=== PATIENT | male | born 1935 | race Caucasian/White ===

== ENCOUNTER 2023-02-24 10:19 | Inpatient (IN) ==
--- NOTE | 2023-02-24 10:25 | Emergency Department Note ---
Impression & Plan Chest pain, Abnormal EKG ED Provider Note NAME: BEL GANT AGE: 87 SEX: M : 1935 ARRIVES VIA: Ambulance INFORMANT: Patient, EMS ED PROVIDER(S): Devang Lima DO CHIEF COMPLAINT: Chest pain HPI: The patient is an 87-year-old male who presented to the emergency department by ambulance for an evaluation of chest pain. The patient was at rest when he had an acute onset of substernal chest pain. He described it as a pressure. The pain was nonradiating. He called 911 and was brought to the emergency department by ambulance. The patient received aspirin and nitroglycerin prior to arrival with significant improvement of his symptoms. The patient does have a history of diabetes. He states has been compliant with his outpatient medications otherwise. He denies having any fever or cough. ROS: See above HPI for pertinent positives & negatives. A total of 10 systems reviewed and were otherwise negative. PAST MEDICAL HISTORY: See Below PAST SURGICAL HISTORY: See Below FAMILY HISTORY: See Below SOCIAL HISTORY: See Below HOME MEDICATIONS: See Below ALLERGIES: See Below VITALS: See Below PHYSICAL EXAMINATION: GENERAL: Patient is awake alert in no acute distress patient is resting comfortably and showing no signs of anxiety EYES: The conjunctivae are clear. The pupils are round and reactive. EARS, NOSE, MOUTH AND THROAT: The nose is without any evidence of any deformity. NECK: The neck is nontender and supple. RESPIRATORY: Normal respiratory effort is noted there is no evidence of wheezing rhonchi or rales CARDIOVASCULAR: Irregular heart sounds were noted to auscultation. There is no definite murmur. GASTROINTESTINAL: The abdomen is soft. Abdomen is nontender. MUSCULOSKELETAL/EXTREMITIES: There is no evidence of gross deformity full range of motion is noted in the hips and shoulders. SKIN: Skin is warm and dry. There was pedal edema noted bilaterally. NEUROLOGIC: Patient is awake alert and oriented x3 MEDICAL DECISION MAKING: The patient is an 87-year-old male who presented to the emergency department for an evaluation of chest pain. The patient arrived via ambulance. The patient received aspirin and nitroglycerin prior to arrival. On evaluation the patient was feeling much better. I discussed the patient's laboratory and radiographic studies with him. I discussed the limitations of the emergency department work- up for chest pain with him. Ultimately given the patient's age and comorbidities I do feel the patient may be a better candidate for inpatient management. I discussed his condition with the on-call [facility] hospitalist. They have agreed to evaluate the patient in the emergency department for further management and disposition. Triage Nursing notes reviewed. Prior medical records reviewed Vital Signs: reviewed and remarkable for no significant abnormalities Differential diagnosis: Cardiac ischemia, aortic dissection, pulmonary embolism, pneumothorax, pneumonia, pericarditis, myocarditis, esophageal rupture, GERD, cholecystitis, pancreatitis, musculoskeletal, as well as other pathologies. ER treatment provided: See below Diagnostics interpreted by me: ECG: EKG was obtained in the emergency department. My interpretation is sinus rhythm at 109 bpm. Frequent PVCs were noted. A left bundle branch block pattern was favored. No previous tracing was available. Through the [employer] system there was an EKG evaluated from November 18, 2019. The QRS prolongation does appear to be increased compared to previous tracing otherwise no significant changes were noted Prehospital EKG was reviewed in the emergency department. My interpretation is sinus rhythm at 117 bpm. Left bundle branch block pattern was still noted with poor R wave progression and frequent PVCs. This compares similar to the tracing obtained in the emergency department Cardiac Monitoring: An order was placed for continuous cardiac monitoring. The monitor shows a rate of 106 bpm with sinus rhythm. Laboratory studies: As stated above and show below. Imaging studies: See below. Radiographic imaging was reviewed by myself Consultation(s): I discussed this case with Joy [facility]. Past Med/Surg History Medical History Congestive heart failure Diabetes type 2, controlled Essential hypertension GERD (gastroesophageal reflux disease) History of colon cancer Insomnia MEGAN (obstructive sleep apnea) Rectal bleeding Transient cerebral ischemic attack Social History Smoking Status: Former smoker Preferred Language: Singaporean Feels Safe at Home: Yes Allergies Allergies Allergy/AdvReac Type Severity Reaction Status Date / Time No Known Allergies Allergy Verified 10/03/22 11:11 Home Meds Home Medications Medication Instructions Recorded Confirmed acetaminophen 500 mg tablet 1,000 mg PO TID LOW BACK PAIN 09/12/22 02/24/23 (Tylenol Extra Strength) amlodipine 10 mg tablet (Norvasc) 10 mg PO QAM 09/12/22 02/24/23 atorvastatin 20 mg tablet 20 mg PO PM 09/12/22 02/24/23 cholecalciferol (vitamin D3) 10 10 mcg PO QAM 09/12/22 02/24/23 mcg (400 unit) capsule empagliflozin 10 mg tablet 10 mg PO BID 09/12/22 02/24/23 (Jardiance) famotidine 20 mg tablet (Pepcid) 20 mg PO BID 09/12/22 02/24/23 metformin 1,000 mg tablet 1,000 mg PO BID 09/12/22 02/24/23 nystatin-triamcinolone 100,000 1 applic topical BID 09/12/22 02/24/23 unit/gram-0.1 % topical ointment pantoprazole 40 mg tablet,delayed 40 mg PO QAM 09/12/22 02/24/23 release (Protonix) trazodone 50 mg tablet 50 mg PO HS 09/12/22 02/24/23 valsartan 160 1 tab PO QAM 09/26/22 02/24/23 mg-hydrochlorothiazide 25 mg tablet docusate sodium 100 mg capsule 100 mg PO DAILY 10/03/22 02/24/23 (Colace) ascorbic acid (vitamin C) 500 mg 500 mg PO DAILY 02/24/23 02/24/23 tablet (Vitamin C) aspirin 25 mg-dipyridamole 200 mg 1 cap PO BID 02/24/23 02/24/23 capsule,ext.release 12 hr multiphase Results & Data (ED) Vital Signs Vital Signs - 24 hr 02/24/23 10:28 02/24/23 10:24 02/24/23 10:24 Temperature 36.8 C Temperature Source Oral Pulse Rate 106 H 103 H Pulse Rate from SpO2 Sensor Respiratory Rate 18 Respiratory Effort / Characteristics Non-Labored Spontaneous Respiratory Depth Normal Respiratory Pattern Regular Blood Pressure 127/69 Blood Pressure Mean 88 Blood Pressure Position Semi-fowlers Pulse Oximetry 94 96 Oxygen Delivery Method Room Air Sepsis Recent Fever Within 48 Hours No Sepsis New/Unexplained Change in Mental Status No Sepsis Action Taken by Nursing No Action Required 02/24/23 10:24 02/24/23 10:24 02/24/23 10:30 Temperature Temperature Source Pulse Rate Pulse Rate from SpO2 Sensor Respiratory Rate Respiratory Effort / Characteristics Respiratory Depth Normal Respiratory Pattern Blood Pressure 127/69 Blood Pressure Mean 103 Blood Pressure Position Pulse Oximetry 96 Oxygen Delivery Method Room Air Sepsis Recent Fever Within 48 Hours Sepsis New/Unexplained Change in Mental Status Sepsis Action Taken by Nursing 02/24/23 10:30 02/24/23 11:00 02/24/23 11:00 Temperature Temperature Source Pulse Rate 104 H 92 H Pulse Rate from SpO2 Sensor 91 H Respiratory Rate 27 H 16 Respiratory Effort / Characteristics Respiratory Depth Respiratory Pattern Blood Pressure 140/69 Blood Pressure Mean 91 Blood Pressure Position Pulse Oximetry 93 Oxygen Delivery Method Sepsis Recent Fever Within 48 Hours Sepsis New/Unexplained Change in Mental Status Sepsis Action Taken by Nursing 02/24/23 11:30 02/24/23 11:30 02/24/23 12:00 Temperature Temperature Source Pulse Rate 99 H Pulse Rate from SpO2 Sensor 98 H Respiratory Rate 17 Respiratory Effort / Characteristics Respiratory Depth Respiratory Pattern Blood Pressure 135/73 135/57 L Blood Pressure Mean 98 84 Blood Pressure Position Pulse Oximetry 96 Oxygen Delivery Method Sepsis Recent Fever Within 48 Hours Sepsis New/Unexplained Change in Mental Status Sepsis Action Taken by Nursing 02/24/23 12:00 Temperature Temperature Source Pulse Rate 93 H Pulse Rate from SpO2 Sensor 91 H Respiratory Rate 18 Respiratory Effort / Characteristics Respiratory Depth Respiratory Pattern Blood Pressure Blood Pressure Mean Blood Pressure Position Pulse Oximetry 94 Oxygen Delivery Method Sepsis Recent Fever Within 48 Hours Sepsis New/Unexplained Change in Mental Status Sepsis Action Taken by Skilled Nursing Medications Current Medication List: was personally reviewed by me Laboratory Data Attestation: I reviewed the patient's lab results. 02/24/23 10:54 02/24/23 10:54 Lab Results 02/24/23 02/24/23 Range/Units 10:54 10:54 WBC 9.85 (4.8-10.8) K/ul RBC 3.97 L (4.70-6.10) M/uL Hgb 12.0 L (14.0-18.0) g/dl Hct 37.1 L (42.0-52.0) % MCV 93.5 (80.0-100.0) fL MCH 30.2 (25.0-34.0) pg MCHC 32.3 (32.0-36.0) g/dL RDW Std Deviation 49.0 H (36.4-46.3) fL RDW Coeff of Reina 14.4 (11.5-14.5) % Plt Count 334 (130-400) K/uL MPV 9.4 (9.4-12.4) fL Immature Gran % (Auto) 0.5 % Neut % (Auto) 78.6 % Lymph % (Auto) 10.2 % [place] % (Auto) 9.6 % Eos % (Auto) 0.6 % Baso % (Auto) 0.5 % Neut # (Auto) 7.74 H (1.40-6.50) K/uL Lymph # (Auto) 1.00 L (1.2-3.4) K/uL [place] # (Auto) 0.95 H (0.11-0.59) K/uL Eos # (Auto) 0.06 (0-0.50) K/uL Baso # (Auto) 0.05 (0-0.2) K/uL Immature Gran # (Auto) 0.05 (0.01-0.20) K/uL Sodium 137 (136-145) mmol/L Potassium 3.7 (3.5-5.1) mmol/L Chloride 101 (98-107) mmol/L Carbon Dioxide 27 (21-32) mmol/L Anion Gap 9 (3-11) BUN 17 (6-23) mg/dl Creatinine 0.93 (0.6-1.4) mg/dl Est Cr Clr Drug Dosing 65.7 ml/min Est GFR ( Amer) 85.9 ml/min Est GFR (Non-Af Amer) 74.1 ml/min BUN/Creatinine Ratio 18.3 (10-20) Glucose 157 H (70-99(Fasting)) mg/dl Calcium 9.3 (8.6-10.3) mg/dl Total Bilirubin 0.4 (0.2-1.0) mg/dl AST 15 (13-39) U/L ALT 11 (7-52) U/L Alkaline Phosphatase 66 (34-104) U/L Troponin I High Sens 11.3 (0-20) pg/ml Total Protein 6.8 (6.0-8.3) gm/dl Albumin 4.1 (3.4-5.0) gm/dl Globulin 2.7 (2.5-4.0) gm/dl Albumin/Globulin Ratio 1.5 (0.9-2) Lipase 24 (11-82) U/L Imaging Data Attestation: I personally reviewed and interpreted this imaging study as follows: My Impression: 1 view chest x-ray was obtained in the emergency department. My interpretation is no free air, final report below. Radiologist's Impression: Chest X-Ray 02/24/23 10:24 XR chest 1V portable HISTORY: Chest pain, nonspecific COMPARISON: None. FINDINGS: There are low lung volumes. No pneumothorax. Blunting of the left lateral costophrenic sulcus. This could be chronic or represent a trace left pleural effusion. The heart is mildly enlarged. Calcifications within the aortic knob. Slightly rotated study. There is mild antral pulmonary vascular congestion without overt edema. IMPRESSION: 1. Cardiomegaly with mild congestive change. 2. Possible trace left pleural effusion. ACT 112: Negative or not required by law. Electronically signed by: Soren Brandt M.D. 02/24/2023 10:56 AM Discharge Plan Visit Data Chief Complaint: Chest Pain Stated Complaint: CHEST TIGHTNESS ED Provider: Devang Lima Discharge Problem: Chest pain, Abnormal EKG Patient Disposition: Being Evaluated by Hospitalist Forms Stand Alone Forms: My [facility] Prescriptions Prescriptions: No Action valsartan-hydrochlorothiazide 160-25 mg tablet 1 tab PO QAM atorvastatin 20 mg tablet 20 mg PO PM cholecalciferol (vitamin D3) 10 mcg (400 unit) capsule 10 mcg PO QAM Jardiance 10 mg tablet 10 mg PO BID amlodipine [Norvasc] 10 mg tablet 10 mg PO QAM metformin 1,000 mg tablet 1,000 mg PO BID nystatin-triamcinolone 100,000-0.1 unit/gram-% ointment 1 applic topical BID famotidine [Pepcid] 20 mg tablet 20 mg PO BID pantoprazole [Protonix] 40 mg tablet,delayed release (DR/EC) 40 mg PO QAM trazodone 50 mg tablet 50 mg PO HS acetaminophen [Tylenol Extra Strength] 500 mg tablet 1,000 mg PO TID docusate sodium [Colace] 100 mg capsule 100 mg PO DAILY aspirin-dipyridamole [Aggrenox] 25-200 mg Capsule, Er Multiphase 12 Hr 1 cap PO BID ascorbic acid (vitamin C) [Vitamin C] 500 mg Tablet 500 mg PO DAILY Referrals Referrals: PCP,NO [Physician] - Chest pain Qualifiers: Chest pain type: unspecified Qualified Code(s): R07.9 - Chest pain, unspecified
--- NOTE | 2023-02-24 10:58 | XRay Report ---
XR chest 1V portable HISTORY: Chest pain, nonspecific COMPARISON: None. FINDINGS: There are low lung volumes. No pneumothorax. Blunting of the left lateral costophrenic sulc us. This could be chronic or represent a trace left pleural effusion. The heart is mildly enlarged. C alcifications within the aortic knob. Slightly rotated study. There is mild antral pulmonary vascular congestion without overt edema. IMPRESSION: 1. Cardiomegaly with mild congestive change. 2. Possible trace left pleural effusion. ACT 112: Negative or not required by law. Electronically signed by: Soren Brandt M.D. 02/24/2023 10:56 AM
[2023-02-24 11:15] LABS: Basophils # (auto) 0.05 K/uL (0-0.2); Basophils % (auto) 0.5 %; Eosinophils # (auto) 0.06 K/uL (0-0.50); Eosinophils % (auto) 0.6 %; Hematocrit (blood only) 37.1 % (42.0-52.0); Immature Granulocytes # (auto) 0.05 K/uL (0.01-0.20); Immature Granulocytes % (auto) 0.5 %; Lymphocytes % (auto) 10.2 %; Mean Corpuscular Hemoglobin 30.2 pg (25.0-34.0); Mean Corpuscular Hgb Conc 32.3 g/dL (32.0-36.0); Mean Corpuscular Volume 93.5 fL (80.0-100.0); Mean Platelet Volume 9.4 fL (9.4-12.4); Monocytes # (auto) 0.95 K/uL (0.11-0.59); Monocytes % (auto) 9.6 %; Neutrophils # (auto) 7.74 K/uL (1.40-6.50); Neutrophils % (auto) 78.6 %; Platelet Count 334 K/uL (130-400); RDW Coefficient of Variation 14.4 % (11.5-14.5); Red Blood Count 3.97 M/uL (4.70-6.10); White Blood Count 9.85 K/ul (4.8-10.8)
[2023-02-24 11:28] LABS: Albumin Globulin Ratio 1.5 (0.9-2); Albumin Level 4.1 gm/dl (3.4-5.0); BUN Creatinine Ratio 18.3 (10-20); Bilirubin,Total 0.4 mg/dl (0.2-1.0); Calcium 9.3 mg/dl (8.6-10.3); Creatinine Clr Calc Pharmacy 65.7 ml/min; Est GFR (African American) 85.9 ml/min; Est GFR (Non-African American) 74.1 ml/min; Globulin 2.7 gm/dl (2.5-4.0); Potassium 3.7 mmol/L (3.5-5.1); Total Protein 6.8 gm/dl (6.0-8.3)
[2023-02-24 11:34] LABS: Troponin I High Sensitivity 11.3 pg/ml (0-20)
--- NOTE | 2023-02-24 13:02 | History & Physical Report ---
Date of Service February 24, 2023 Assessment & Plan (1) Chest pain: Plan: Patient for observation Vitals as protocol Activity as tolerated Patient kept n.p.o. past midnight Heart healthy diet for now Nitroglycerin as needed as needed for chest pain Echo ordered in a.m. Serial troponins (2) Abnormal EKG: Plan: Reviewed EKG, concerns for left bundle branch block. Continue telemetry monitoring (3) Congestive heart failure: Plan: Continue home meds at this time (4) MEGAN (obstructive sleep apnea): Plan: Stable (5) Diabetes type 2, controlled: Plan: Held home meds at this time Put him on sliding scale and Lantus. (6) Essential hypertension: Plan: Continue valsartan and amlodipine Plan Plan would be to monitor tropes, get EKG in a.m. If any abnormality noted will consider cardiology evaluation and a possible stress test. Patient is a DNR History of Present Illness Primary Care Provider: Theresa Ventura at [facility] 87-year-old male with multiple medical problems staying in an assisted living facility came in with episode of chest pain retrosternal. He describes it as severe chest pain with no radiation lasted for about 20 to 30 minutes and subsided on its own. In view of concerns he was moved to [facility] and evaluated in the ER. Patient received aspirin and nitroglycerin prior to arrival with significant improvement of his symptoms. Patient denied any shortness of breath. No fever or cough or nausea noted. At time of evaluation his niece was at bedside. He denies any chest pain at this point of time. His initial labs and EKG were negative for acute NV. Allergies Allergy/AdvReac Type Severity Reaction Status Date / Time No Known Allergies Allergy Verified 10/03/22 11:11 Home Medications Medication Instructions Recorded Confirmed Type acetaminophen 500 mg tablet 1,000 mg PO TID LOW BACK PAIN 09/12/22 02/24/23 History (Tylenol Extra Strength) amlodipine 10 mg tablet (Norvasc) 10 mg PO QAM 09/12/22 02/24/23 History atorvastatin 20 mg tablet 20 mg PO PM 09/12/22 02/24/23 History cholecalciferol (vitamin D3) 10 10 mcg PO QAM 09/12/22 02/24/23 History mcg (400 unit) capsule empagliflozin 10 mg tablet 10 mg PO BID 09/12/22 02/24/23 History (Jardiance) famotidine 20 mg tablet (Pepcid) 20 mg PO BID 09/12/22 02/24/23 History metformin 1,000 mg tablet 1,000 mg PO BID 09/12/22 02/24/23 History nystatin-triamcinolone 100,000 1 applic topical BID 09/12/22 02/24/23 History unit/gram-0.1 % topical ointment pantoprazole 40 mg tablet,delayed 40 mg PO QAM 09/12/22 02/24/23 History release (Protonix) trazodone 50 mg tablet 50 mg PO HS 09/12/22 02/24/23 History valsartan 160 1 tab PO QAM 09/26/22 02/24/23 History mg-hydrochlorothiazide 25 mg tablet docusate sodium 100 mg capsule 100 mg PO DAILY 10/03/22 02/24/23 History (Colace) ascorbic acid (vitamin C) 500 mg 500 mg PO DAILY 02/24/23 02/24/23 History tablet (Vitamin C) aspirin 25 mg-dipyridamole 200 mg 1 cap PO BID 02/24/23 02/24/23 History capsule,ext.release 12 hr multiphase Past Med/Surg History Medical History Congestive heart failure Diabetes type 2, controlled Essential hypertension GERD (gastroesophageal reflux disease) History of colon cancer Insomnia MEGAN (obstructive sleep apnea) Rectal bleeding Transient cerebral ischemic attack Social History Smoking Status: Former smoker Preferred Language: Ecuadorean Feels Safe at Home: Yes Review of Systems Review of Systems: Reviewed all systems as noted in H/P , rest reviewed as negative Physical Exam Physical Exam: HEENT:No JVD , Normocephalic , atraumatic CV: S1/S2+ , no murmurs Resp: Air entry present bilaterally.no crackles, no wheeze . GI: Abdomen soft non tender . Musculoskeletal: examined for joint tenderness. Skin: no rashes Psych: Normal affect Neuro: Patient is awake alert not in distress , No focal neuro deficits noted Ext: patient has compression stockings, noted to have edema Results & Data Results & Data Vital Signs (Past 12 Hours) Vital Signs Temp Pulse Resp BP Pulse Ox O2 Del Method 02/24/23 12:00 93 H 18 94 02/24/23 12:00 135/57 L 02/24/23 11:30 99 H 17 96 02/24/23 11:30 135/73 02/24/23 11:00 92 H 16 93 02/24/23 11:00 140/69 02/24/23 10:30 104 H 27 H 02/24/23 10:30 127/69 02/24/23 10:24 96 Room Air 02/24/23 10:24 96 02/24/23 10:24 36.8 C 103 H 18 127/69 94 Room Air 02/24/23 10:28 106 H Laboratory Results 02/24/23 02/24/23 10:54 10:54 WBC 9.85 RBC 3.97 L Hgb 12.0 L Hct 37.1 L MCV 93.5 MCH 30.2 MCHC 32.3 RDW Std Deviation 49.0 H RDW Coeff of Reina 14.4 Plt Count 334 MPV 9.4 Immature Gran % (Auto) 0.5 Neut % (Auto) 78.6 Lymph % (Auto) 10.2 [place] % (Auto) 9.6 Eos % (Auto) 0.6 Baso % (Auto) 0.5 Neut # (Auto) 7.74 H Lymph # (Auto) 1.00 L [place] # (Auto) 0.95 H Eos # (Auto) 0.06 Baso # (Auto) 0.05 Immature Gran # (Auto) 0.05 Sodium 137 Potassium 3.7 Chloride 101 Carbon Dioxide 27 Anion Gap 9 BUN 17 Creatinine 0.93 Est Cr Clr Drug Dosing 65.7 Est GFR ( Amer) 85.9 Est GFR (Non-Af Amer) 74.1 BUN/Creatinine Ratio 18.3 Glucose 157 H Calcium 9.3 Total Bilirubin 0.4 AST 15 ALT 11 Alkaline Phosphatase 66 Troponin I High Sens 11.3 Total Protein 6.8 Albumin 4.1 Globulin 2.7 Albumin/Globulin Ratio 1.5 Lipase 24 Diagnostic Findings Abnormal Labs 02/24/23 02/24/23 10:54 10:54 RBC 3.97 L Hgb 12.0 L Hct 37.1 L RDW Std Deviation 49.0 H Neut # (Auto) 7.74 H Lymph # (Auto) 1.00 L [place] # (Auto) 0.95 H Glucose 157 H Medications Administered Home Medications Medication Instructions Recorded Confirmed Last Taken acetaminophen 500 mg tablet 1,000 mg PO TID LOW BACK PAIN 09/12/22 02/24/23 Unknown (Tylenol Extra Strength) amlodipine 10 mg tablet (Norvasc) 10 mg PO QAM 09/12/22 02/24/23 Unknown atorvastatin 20 mg tablet 20 mg PO PM 09/12/22 02/24/23 Unknown cholecalciferol (vitamin D3) 10 10 mcg PO QAM 09/12/22 02/24/23 Unknown mcg (400 unit) capsule empagliflozin 10 mg tablet 10 mg PO BID 09/12/22 02/24/23 Unknown (Jardiance) famotidine 20 mg tablet (Pepcid) 20 mg PO BID 09/12/22 02/24/23 Unknown metformin 1,000 mg tablet 1,000 mg PO BID 09/12/22 02/24/23 Unknown nystatin-triamcinolone 100,000 1 applic topical BID 09/12/22 02/24/23 Unknown unit/gram-0.1 % topical ointment pantoprazole 40 mg tablet,delayed 40 mg PO QAM 09/12/22 02/24/23 Unknown release (Protonix) trazodone 50 mg tablet 50 mg PO HS 09/12/22 02/24/23 Unknown valsartan 160 1 tab PO QAM 09/26/22 02/24/23 Unknown mg-hydrochlorothiazide 25 mg tablet docusate sodium 100 mg capsule 100 mg PO DAILY 10/03/22 02/24/23 Unknown (Colace) ascorbic acid (vitamin C) 500 mg 500 mg PO DAILY 02/24/23 02/24/23 Unknown tablet (Vitamin C) aspirin 25 mg-dipyridamole 200 mg 1 cap PO BID 02/24/23 02/24/23 Unknown capsule,ext.release 12 hr multiphase Code Status & VTE Plan Code Status Patient is dnr VTE Prophylaxis Plan VTE Prophylaxis will be ordered: Yes (1) Chest pain Chest pain type: unspecified Qualified Code(s): R07.9 - Chest pain, unspecified
[2023-02-24] MEDS ORDERED: GLUCAGON FOR INJ 1 MG VIAL SQ PRN (13:31)
[2023-02-24] MEDS ORDERED: DEXTROSE 50% 50 ML SYRINGE IV PRN (13:31)
[2023-02-24] MEDS ORDERED: GLUCOSE 10 TAB/TUBE PO PRN (13:31)
[2023-02-24] MEDS ORDERED: ALUMINUM/MAGNESIUM SUSP 30 ML UDC PO PRN (13:31)
[2023-02-24] MEDS ORDERED: GLUCOSE 40% GEL 15 GM TUBE PO PRN (13:31)
[2023-02-24] MEDS ORDERED: CARBOHYDRATES FOR HYPOGLYCEMIA PO PRN (13:31)
[2023-02-24] MEDS ORDERED: POLYETHYLENE (MIRALAX) 17 GM PACK PO PRN (13:31)
[2023-02-24] MEDS ORDERED: ONDANSETRON INJ 2 MG/ML 2 ML VIAL IV PRN (13:31)
--- NOTE | 2023-02-24 14:21 | Electrocardiogram Report ---
Test Reason : Blood Pressure : / mmHG Vent. Rate : 109 BPM Atrial Rate : 108 BPM P-R Int : 168 ms QRS Dur : 096 ms QT Int : 338 ms P-R-T Axes : 069 -48 096 degrees QTc Int : 455 ms Sinus tachycardia with frequent , and consecutive Premature ventricular complexes Left anterior fascicular block Septal infarct , age undetermined Abnormal ECG No previous ECGs available Confirmed by Devang Hernandez ([id number]) on 02/24/2023 2:20:51 PM Referred By: Audrey rucker [facility] Confirmed By:Devang Hernandez
[2023-02-24] MEDS: ACETAMINOPHEN 500 MG TAB PO SCH ×2 (15:12→20:04)
[2023-02-24] MEDS: INSULIN ASPART PER UNIT CHARGE SC SCH ×2 (18:30→21:37)
[2023-02-24] MEDS: FAMOTIDINE 20 MG TAB PO SCH (20:04)
[2023-02-24] MEDS: traZODone HCL 50 MG TAB PO SCH (20:04)
[2023-02-24] MEDS ORDERED: ASPIRIN 325 MG ECTAB PO STA (20:14)
[2023-02-24] MEDS ORDERED: Heparin IV Adult Wt-Based Standard WITH Bolus Protocol IV STA (20:14)
[2023-02-24] MEDS ORDERED: HEPARIN SOD (PORCINE) 1000 UNIT/ML IV ONE (20:30)
[2023-02-24] MEDS ORDERED: ATORVASTATIN 40 MG TAB PO SCH (21:00)
[2023-02-24] MEDS ORDERED: DIPYRIDAMOLE/ASPIRIN CAP PO SCH (21:00)
[2023-02-24] MEDS ORDERED: ATORVASTATIN 20 MG TAB PO SCH (21:00)
[2023-02-24 21:20] LABS: Partial Thromboplastin Time 28.5 Seconds (21.0-31.0); Prothrombin Time 10.5 Seconds (9.0-12.0)
[2023-02-24] MEDS: HEPARIN SODIUM/DEXTROSE 25,000 UNITS/500 ML BAG IV SCH (21:29)
[2023-02-24] MEDS: LANTUS PER UNIT CHARGE SQ SCH (21:56)
[2023-02-24] MEDS: METOPROLOL TARTRATE 25 MG TAB PO SCH (22:18)
[2023-02-25 04:42] LABS: BUN Creatinine Ratio 18.4 (10-20); Calcium 9.6 mg/dl (8.6-10.3); Chol HDL Ratio 2.4 (0-5); Creatinine Clr Calc Pharmacy 70.1 ml/min; Est GFR (African American) 90.6 ml/min; Est GFR (Non-African American) 78.1 ml/min; Magnesium 1.9 mg/dl (1.7-2.4); Potassium 3.5 mmol/L (3.5-5.1)
[2023-02-25 04:43] LABS: Hematocrit (blood only) 37.9 % (42.0-52.0); Hemoglobin 12.7 g/dl (14.0-18.0); Mean Corpuscular Hemoglobin 30.4 pg (25.0-34.0); Mean Corpuscular Hgb Conc 33.5 g/dL (32.0-36.0); Mean Corpuscular Volume 90.7 fL (80.0-100.0); Mean Platelet Volume 9.6 fL (9.4-12.4); Platelet Count 350 K/uL (130-400); RDW Coefficient of Variation 14.5 % (11.5-14.5); RDW Standard Deviation 48.1 fL (36.4-46.3); Red Blood Count 4.18 M/uL (4.70-6.10); White Blood Count 10.12 K/ul (4.8-10.8)
[2023-02-25 05:15] LABS: Partial Thromboplastin Ratio 2.8
[2023-02-25 05:32] LABS: Partial Thromboplastin Time 79.4 Seconds (21.0-31.0)
[2023-02-25 07:12] LABS: Estimated Average Glucose 137 mg/dl; Hemoglobin A1C 6.4 % (4.5-5.6)
--- NOTE | 2023-02-25 07:49 | Cardiology Consultation ---
Date of Consultation February 25, 2023 Assessment & Plan (1) Chest pain: (2) NSTEMI (non-ST elevated myocardial infarction): (3) Hypertension: (4) Ventricular ectopy: Plan See attending cardiologists plan for further recommendations and plan of care. Supervising Physician Co-Signing Physician Notes Attending Staff: Pt seen and evaluated with [facility] Staff. Concur with observations and plans 87 yo man presenting with chest pain Lives in assisted living Chest pain Duration - 20 min Resolved with ASA + SL NTG en route to ED EKG - sinus tach + PVCs Troponin - negative initially - trending upward to 86 (peak) Started on IV Heparin Dx: NSETMI ECHOcardiogram: 02/24/2023 LV function normal - 60-65% No WMA No . No major valvular disease Hx: * HTN * Hyperlipidemia * DM * Prior CVA/TIA * Ventricular ectopy (PVCs/ NSVT) * No known CAD * Negative stress in 2020 in response to syncope Exam: obese JVP @ base of neck S1S2 2/6 Systolic murmur - No severe appreciated CTA B No C/c/E Warm and perfusing Plan: * Opting for conservative management at present * One episodes of Angina * SBP 147 mmHg * Continue Valsartn 160 mg po per day * Continue HCTZ 25 mg po per day (patient does not appear to be volume overloaded) * Start Imdur 30 mg po per day for angina control * STOP Lopressor * Start Toprol 12.5 mg po per day * K+ goal 4.5-5 * Replete with Kdur 60 meq po x 1 * Mag goal >2 * 4 gm MagSo4 * Check TSH * Continue ASA 81 mg po per day * PT/OT * Ambulatory sat * LDL 48 * Increase Lipitor 40 mg po per day * If patient has recurrence of sx (with ambulation) may consider stress testing Braydon Wong History of Present Illness Reason for Consultation: Chest pain Requesting Physician: Dr. Black Attending Physician: Dr. Wong History of Present Illness Patient is an 87 year old male who presents to [facility] with complaints of chest pain. History includes: 1. Hypertension 2. Dyslipidemia 3. DM type II 4. Prior TIA 5. Frequent ventricular ectopy Per outpatient records, evaluated by [facility] cardiology in 2020 after a syncopal event. Stress testing was negative per documentation, preserved LVEF on echo, outpatient monitor demonstrated frequent PVC's and several runs of non sustained VT. Patient was to have loop monitor but declined. Patient admitted after episode of chest pain lasting 20-30 min. Resolved with ASA and nitro on route to ER. EKG on arrival demonstrated NSR with frequent PVC's. No acute changes. initial troponin negative at 11, increasing to 20 - 86 - and then 82. Started on IV heparin overnight with uptitration of cardiac e nzymes. Also started on low dose metoprolol for PVC's. Echo revealed normal LVEF without wall motion abnormalities. Patient feeling well this morning. Denies recurrent chest pain or SOB. No events overnight. BP has been borderline elevated. No orthopnea, PND or edema. Typically fairly active walking at halfway with walker. No recent exertional chest pain. This episode "occurred out of the blue" while sitting after eating breakfast Allergies Allergy/AdvReac Type Severity Reaction Status Date / Time No Known Allergies Allergy Verified 10/03/22 11:11 Home Medications Medication Instructions Recorded Confirmed Type acetaminophen 500 mg tablet 1,000 mg PO TID LOW BACK PAIN 09/12/22 02/24/23 History (Tylenol Extra Strength) amlodipine 10 mg tablet (Norvasc) 10 mg PO QAM 09/12/22 02/24/23 History atorvastatin 20 mg tablet 20 mg PO PM 09/12/22 02/24/23 History cholecalciferol (vitamin D3) 10 10 mcg PO QAM 09/12/22 02/24/23 History mcg (400 unit) capsule empagliflozin 10 mg tablet 10 mg PO BID 09/12/22 02/24/23 History (Jardiance) famotidine 20 mg tablet (Pepcid) 20 mg PO BID 09/12/22 02/24/23 History metformin 1,000 mg tablet 1,000 mg PO BID 09/12/22 02/24/23 History nystatin-triamcinolone 100,000 1 applic topical BID 09/12/22 02/24/23 History unit/gram-0.1 % topical ointment pantoprazole 40 mg tablet,delayed 40 mg PO QAM 09/12/22 02/24/23 History release (Protonix) trazodone 50 mg tablet 50 mg PO HS 09/12/22 02/24/23 History valsartan 160 1 tab PO QAM 09/26/22 02/24/23 History mg-hydrochlorothiazide 25 mg tablet docusate sodium 100 mg capsule 100 mg PO DAILY 10/03/22 02/24/23 History (Colace) ascorbic acid (vitamin C) 500 mg 500 mg PO DAILY 02/24/23 02/24/23 History tablet (Vitamin C) aspirin 25 mg-dipyridamole 200 mg 1 cap PO BID 02/24/23 02/24/23 History capsule,ext.release 12 hr multiphase Patient History Medical History Congestive heart failure Diabetes type 2, controlled Essential hypertension GERD (gastroesophageal reflux disease) History of colon cancer Insomnia MEGAN (obstructive sleep apnea) Rectal bleeding Transient cerebral ischemic attack Social History Smoking Status: Former smoker Hx Alcohol Use: Yes Alcohol type: wine Hx Substance Use: No Preferred Language: Vietnamese Communication Ability: Effective Vehicle Washer Required: No Beliefs That Will Affect Care: None Current Living Situation: Jail Feels Safe at Home: Yes Assistive Devices: Walker Review of Systems Review of Systems: All systems reviewed & are unremarkable except as noted in HPI & below Physical Exam Constitutional: WD/WN, vitals as above + obese; no acute distress Neck: trachea midline, no thyromegaly Respiratory: no labored breathing Auscultation: + rales (faint bibasilar rales) Cardiovascular: Rate/Rhythm: regular rate and regular rhythm Heart Sounds: normal S1, normal S2 and + murmur (I/ systolic murmur LSB) Vessels: no JVD Extremities: no edema Gastrointestinal (Abdomen): normal bowel sounds, soft, nontender, no hepatosplenomegaly Skin: no rashes, warm and dry Neurologic: PERRL, EOMI, accommodation nl, no face palsy, no dysarthria Results & Data Vital Signs (Past 12 Hours) Vital Signs Temp Pulse Pulse Resp BP Pulse Ox O2 Del Method 02/25/23 03:55 36.4 C L 67 17 169/80 H 98 Room Air 02/25/23 02:35 69 16 154/74 H 93 Room Air 02/24/23 22:21 76 19 158/71 H 96 Room Air 02/24/23 20:30 85 19 150/75 H 94 Room Air 02/24/23 20:07 74 Laboratory Results Cardiac Enzymes 02/24/23 02/24/23 02/24/23 Range/Units 10:54 12:49 19:14 AST 15 (13-39) U/L Troponin I High Sens 11.3 20.1 H 86.8 H* D (0-20) pg/ml 02/25/23 Range/Units 00:23 AST (13-39) U/L Troponin I High Sens 82.5 H* (0-20) pg/ml Coagulation 02/24/23 02/25/23 Range/Units 20:39 03:52 PT 10.5 (9.0-12.0) Seconds APTT 28.5 79.4 H* (21.0-31.0) Seconds Lipids 02/25/23 Range/Units 03:52 Triglycerides 95 (0-150) mg/dl Cholesterol 116 (0-200) mg/dl HDL Cholesterol 49 mg/dl Cholesterol/HDL Ratio 2.4 (0-5) CBC 02/24/23 02/25/23 Range/Units 10:54 03:52 WBC 9.85 10.12 (4.8-10.8) K/ul RBC 3.97 L 4.18 L (4.70-6.10) M/uL Hgb 12.0 L 12.7 L (14.0-18.0) g/dl Hct 37.1 L 37.9 L (42.0-52.0) % Plt Count 334 350 (130-400) K/uL Neut # (Auto) 7.74 H (1.40-6.50) K/uL Lymph # (Auto) 1.00 L (1.2-3.4) K/uL [place] # (Auto) 0.95 H (0.11-0.59) K/uL Eos # (Auto) 0.06 (0-0.50) K/uL Baso # (Auto) 0.05 (0-0.2) K/uL Comprehensive Metabolic Panel 02/24/23 02/25/23 Range/Units 10:54 03:52 Sodium 137 138 (136-145) mmol/L Potassium 3.7 3.5 (3.5-5.1) mmol/L Chloride 101 101 (98-107) mmol/L Carbon Dioxide 27 27 (21-32) mmol/L BUN 17 16 (6-23) mg/dl Creatinine 0.93 0.87 (0.6-1.4) mg/dl Glucose 157 H 138 H (70-99(Fasting)) mg/dl Calcium 9.3 9.6 (8.6-10.3) mg/dl AST 15 (13-39) U/L ALT 11 (7-52) U/L Alkaline Phosphatase 66 (34-104) U/L Total Protein 6.8 (6.0-8.3) gm/dl Albumin 4.1 (3.4-5.0) gm/dl Intake and Output 02/24/23 02/25/23 02/25/23 22:59 06:59 14:59 Intake Total 284.9 / 284.9 40.05 / 40.05 Output Total 1100 / 1100 Balance -815.1 / -815.1 40.05 / 40.05 Intake: IV 234.9 / 234.9 40.05 / 40.05 Heparin Sodium/Dextrose 25,000 234.9 / 234.9 40.05 / 40.05 units In 500 ml @ 1,350 UNITS/ HR 27 mls/hr IV .[id number] [facility] Rx #:[id number] Oral 50 / 50 Output: Urine 1100 / 1100 Other: Weight 104 kg 95 kg Weight Measurement Method Built in [facility] Diagnostic Findings Telemetry reviewed: Sinus bradycardia and normal sinus rhythm with occ PVC. HR ranging 50-70 bpm EKG reviewed from 02/24/23: Sinus tachycardia with frequent , and consecutive Premature ventricular complexes Left anterior fascicular block Septal infarct , age undetermined Abnormal ECG No previous ECGs available Echo completed 02/24/2023: Mild concentric LVH. LV wall motion is normal. LV systolic function is normal at 60 to 65%. RV is mildly dilated. RV systolic function is normal. No findings to suggest pulmonary hypertension. Grade 1 diastolic dysfunction. Aortic valve sclerosis mild without significant aortic valve stenosis No prior studies for comparison. Chest X-Ray 02/24/23 10:24 XR chest 1V portable HISTORY: Chest pain, nonspecific COMPARISON: None. FINDINGS: There are low lung volumes. No pneumothorax. Blunting of the left lateral costophrenic sulcus. This could be chronic or represent a trace left pleural effusion. The heart is mildly enlarged. Calcifications within the aortic knob. Slightly rotated study. There is mild antral pulmonary vascular congestion without overt edema. IMPRESSION: 1. Cardiomegaly with mild congestive change. 2. Possible trace left pleural effusion. ACT 112: Negative or not required by law. Electronically signed by: Soren Brandt M.D. 02/24/2023 10:56 AM Medications Administered Current Inpatient Medications Acetaminophen (Acetaminophen 500 Mg Tab) 1,000 mg PO TID [facility] Stop: 03/26/23 13:59 Last Admin: 02/24/23 20:04 Dose: 1,000 mg Al Hydrox/Mg Hydrox/Simethicone (Aluminum/Magnesium Susp 30 Ml Udc) 15 ml PO Q4H PRN PRN Reason: Dyspepsia Stop: 03/26/23 13:30 Ascorbic Acid (Ascorbic Acid 500 Mg Tab) 500 mg PO DAILY [facility] Stop: 03/27/23 08:59 Aspirin (Aspirin 81 Mg Ectab) 81 mg PO QAM [facility] Stop: 03/27/23 08:59 Atorvastatin Calcium (Atorvastatin 40 Mg Tab) 80 mg PO PM [facility] Stop: 03/26/23 20:59 Last Admin: 02/24/23 21:08 Dose: 80 mg Dextrose (Dextrose 50% 50 Ml Syringe) 25 - 50 ml IV UD PRN; Protocol PRN Reason: Hypoglycemia Protocol Stop: 03/26/23 13:30 Docusate Sodium (Docusate Sodium 100 Mg Cap) 100 mg PO DAILY [facility] Stop: 03/27/23 08:59 Famotidine (Famotidine 20 Mg Tab) 20 mg PO BID [facility] Stop: 03/26/23 20:59 Last Admin: 02/24/23 20:04 Dose: 20 mg Glucagon (Glucagon For Inj 1 Mg Vial) 1 mg SQ UD PRN; Protocol PRN Reason: Hypoglycemia Protocol Stop: 03/26/23 13:30 Glucose (Glucose 10 Tab/Tube) 4 - 8 tab PO UD PRN; Protocol PRN Reason: Hypoglycemia Treatment Stop: 03/26/23 13:30 Glucose (Glucose 40% Gel 15 Gm Tube) 15 - 30 gm PO UD PRN; Protocol PRN Reason: Hypoglycemia Protocol Stop: 03/26/23 13:30 Hydrochlorothiazide (Hydrochlorothiazide 25 Mg Tab) 12.5 mg PO QAM [facility] Stop: 03/27/23 08:59 Heparin Sodium/Dextrose (Heparin Sodium/Dextrose) 25,000 units in 500 mls @ 27 mls/hr IV .[id number] [facility]; Protocol Stop: 03/26/23 20:29 Last Titration: 02/25/23 07:04 Dose: 1,350 units/hr, 27 mls/hr Insulin Aspart (Insulin Aspart Per Unit Charge) 0 units SC ACHS [facility] Stop: 03/26/23 16:29 Last Admin: 02/24/23 21:37 Dose: Not Given Insulin Glargine (Lantus Per Unit Charge) 0 - 10 units SQ BID [facility] Stop: 03/26/23 20:59 Last Admin: 02/24/23 21:56 Dose: Not Given Metoprolol Tartrate (Metoprolol Tartrate 25 Mg Tab) 12.5 mg PO BID [facility] Stop: 03/26/23 20:59 Last Admin: 02/24/23 22:18 Dose: 12.5 mg Miscellaneous (Carbohydrates For Hypoglycemia ) 15 - 30 gm PO UD PRN PRN Reason: Hypoglycemia Protocol Stop: 03/26/23 13:30 Ondansetron HCl (Ondansetron Inj 2 Mg/Ml 2 Ml Vial) 4 mg IV Q6H PRN PRN Reason: Nausea Stop: 03/26/23 13:30 Pantoprazole Sodium (Pantoprazole 40 Mg Tab) 40 mg PO QAM [facility] Stop: 03/27/23 08:59 Pneumococcal Polyvalent Vaccine (Pneumococcal Polysaccharide Vaccine 25mcg/0.5ml Vial/Syr) 25 mcg IM .ONCE ONE Stop: 02/25/23 09:01 Polyethylene Glycol (Polyethylene (Miralax) 17 Gm Pack) 17 gm PO DAILY PRN PRN Reason: Constipation Stop: 03/26/23 13:30 Trazodone HCl (Trazodone Hcl 50 Mg Tab) 50 mg PO HS [facility] Stop: 03/26/23 20:59 Last Admin: 02/24/23 20:04 Dose: 50 mg Valsartan (Valsartan 80 Mg Tab) 160 mg PO QAM [facility] Stop: 03/27/23 08:59 Vitamin D (Cholecalciferol 400 Units 10 Mcg Tab) 400 units PO QAM [facility] Stop: 03/27/23 08:59 (1) Chest pain Chest pain type: unspecified Qualified Code(s): R07.9 - Chest pain, unspecified
[2023-02-25] MEDS ORDERED: PNEUMOCOCCAL Polysaccharide Vaccine 25mcg/0.5mL vial/Syr IM ONE (09:00)
[2023-02-25] MEDS ORDERED: ENOXAPARIN INJ 40 MG/0.4 ML SYR SQ SCH (09:00)
[2023-02-25] MEDS ORDERED: amLODIPine BESYLATE 5 MG TAB PO SCH (09:00)
[2023-02-25] MEDS: ASPIRIN 81 MG ECTAB PO SCH (09:13)
[2023-02-25] MEDS: DOCUSATE SODIUM 100 MG CAP PO SCH (09:13)
[2023-02-25] MEDS: CHOLECALCIFEROL 400 UNITS 10 MCG TAB PO SCH (09:14)
[2023-02-25] MEDS: METOPROLOL TARTRATE 25 MG TAB PO SCH ×2 (09:14→20:27)
[2023-02-25] MEDS: FAMOTIDINE 20 MG TAB PO SCH ×2 (09:14→20:28)
[2023-02-25] MEDS: VALSARTAN 80 MG TAB PO SCH (09:14)
[2023-02-25] MEDS: hydroCHLOROthiazide 25 MG TAB PO SCH (09:14)
[2023-02-25] MEDS: ASCORBIC ACID 500 MG TAB PO SCH (09:14)
[2023-02-25] MEDS: ACETAMINOPHEN 500 MG TAB PO SCH ×3 (09:15→20:26)
[2023-02-25] MEDS: INSULIN ASPART PER UNIT CHARGE SC SCH ×4 (09:55→20:35)
[2023-02-25] MEDS: LANTUS PER UNIT CHARGE SQ SCH ×2 (09:59→20:35)
[2023-02-25] MEDS: PANTOprazole 40 MG TAB PO SCH (10:55)
[2023-02-25 12:29] LABS: Partial Thromboplastin Ratio 2.2
[2023-02-25 12:54] LABS: Partial Thromboplastin Time 61.8 Seconds (21.0-31.0)
[2023-02-25] MEDS ORDERED: POTASSIUM CHLORIDE CRTAB 20 MEQ TABCR PO ONE (14:08)
[2023-02-25] MEDS: HEPARIN SODIUM/DEXTROSE 25,000 UNITS/500 ML BAG IV SCH (14:55)
[2023-02-25] MEDS: MAGNESIUM SULFATE / D5W 1 GM/100 ML BAG IV SCH ×4 (14:55→19:58)
[2023-02-25] MEDS: ISOSORBIDE MONO EXTENDED REL 30 MG TABCR PO SCH (15:08)
--- NOTE | 2023-02-25 16:07 | Electrocardiogram Report ---
Test Reason : Blood Pressure : / mmHG Vent. Rate : 061 BPM Atrial Rate : 061 BPM P-R Int : 206 ms QRS Dur : 102 ms QT Int : 414 ms P-R-T Axes : 059 -31 012 degrees QTc Int : 416 ms Normal sinus rhythm Left axis deviation Septal infarct (cited on or before 24-FEB-2023) Abnormal ECG When compared with ECG of 24-FEB-2023 10:27, Premature ventricular complexes are no longer Present Vent. rate has decreased BY 48 BPM Nonspecific T wave abnormality now evident in Inferior leads Confirmed by Devang Hernandez ([id number]) on 02/25/2023 4:07:03 PM Referred By: Audrey rucker [facility] Confirmed By:Devang Hernandez
[2023-02-25] MEDS: ATORVASTATIN 40 MG TAB PO SCH (20:26)
[2023-02-25] MEDS: traZODone HCL 50 MG TAB PO SCH (20:27)
--- NOTE | 2023-02-26 07:51 | Cardiology Progress Note ---
Date of Service February 26, 2023 Assessment & Plan Admission and Anticipated Discharge Date Admission Date: February 25, 2023 Supervising Physician Co-Signing Physician Notes Attending Staff: Pt seen and evaluated with [facility] Staff. Concur with observations and plans 87 yo man presenting with chest pain Lives in assisted living Chest pain Duration - 20 min Resolved with ASA + SL NTG en route to ED EKG - sinus tach + PVCs Troponin - negative initially - trending upward to 86 (peak) Started on IV Heparin Dx: NSETMI ECHOcardiogram: 02/24/2023 LV function normal - 60-65% No WMA No . No major valvular disease Hx: * HTN * Hyperlipidemia * DM * Prior CVA/TIA * Ventricular ectopy (PVCs/ NSVT) * No known CAD * Negative stress in 2020 in response to syncope Plan: * Opting for conservative management at present * No Angina overnight * SBP 129 mmHg * Continue Valsartan 160 mg po per day * Continue HCTZ 25 mg po per day (patient does not appear to be volume overloaded) * Increase Imdur to 60 mg po per day for angina control * If SBP is below 120 mmHG on higher Imdur dose, may consider stopping HCTZ * Lopressor (OFF) * Continue Toprol 12.5 mg po per day - HR 56 BPM * K+ goal 4.5-5 * K+ value is PENDING * Mag goal >2 * TSH- PENDING * Continue ASA 81 mg po per day * PT/OT * Ambulatory sat * LDL 48 * Continue Lipitor 40 mg po per day * If patient has recurrence of sx of angina with ambulation - may consider stress testing * Pt to follow up with [facility] * Please call back with any additional questions Braydon Wong Subjective Events overnight: None reported No significant telemetry events Subjective: No angina reported Review of Systems Review of Systems: All systems reviewed & are unremarkable except as noted in HPI & below Physical Exam Physical Exam: Exam: obese JVP @ base of neck S1S2 2/6 Systolic murmur - No severe appreciated CTA B No C/c/E Warm and perfusing Results & Data Vital Signs (Past 12 Hours) Vital Signs Temp Pulse Pulse Resp BP Pulse Ox O2 Del Method 02/26/23 07:39 36.6 C 56 L 18 129/66 94 Room Air 02/26/23 07:00 64 02/25/23 21:59 63 02/26/23 02:45 36.6 C 70 18 153/80 H 93 Room Air 02/25/23 20:30 Room Air 02/25/23 23:08 36.9 C 58 L 16 136/80 93 Room Air Laboratory Results Coagulation 02/25/23 02/26/23 Range/Units 11:24 07:17 APTT 61.8 H* 80.3 H* (21.0-31.0) Seconds Intake and Output 02/25/23 02/26/23 02/26/23 22:59 06:59 14:59 Intake Total 1185.833 / 1869.833 432 / 1869.833 43.2 / 43.2 Output Total 115 / 440 325 / 440 Balance 1070.833 / 1429.833 107 / 1429.833 43.2 / 43.2 Intake: IV 350.833 / 1034.833 432 / 1034.833 43.2 / 43.2 Heparin Sodium/Dextrose 25,000 432 / 684.00 43.2 / 43.2 units In 500 ml @ 1,350 UNITS/ HR 27 mls/hr IV .[id number] [facility] Rx #:[id number] Magnesium Sulfate / D5w 1 gm In 350.833 / 350.833 100 ml @ 50 mls/hr IV Q2H [facility] Rx#:[id number] Oral 835 / 835 Output: Urine 115 / 440 325 / 440 Other: # Unmeasured Voids 3 # Urine Diapers 1 Weight 95.1 kg Weight Measurement Method [facility] Medications Administered Current Inpatient Medications Acetaminophen (Acetaminophen 500 Mg Tab) 1,000 mg PO TID [facility] Stop: 03/26/23 13:59 Last Admin: 02/26/23 08:24 Dose: 1,000 mg Al Hydrox/Mg Hydrox/Simethicone (Aluminum/Magnesium Susp 30 Ml Udc) 15 ml PO Q4H PRN PRN Reason: Dyspepsia Stop: 03/26/23 13:30 Ascorbic Acid (Ascorbic Acid 500 Mg Tab) 500 mg PO DAILY [facility] Stop: 03/27/23 08:59 Last Admin: 02/26/23 08:24 Dose: 500 mg Aspirin (Aspirin 81 Mg Ectab) 81 mg PO QAM [facility] Stop: 03/27/23 08:59 Last Admin: 02/26/23 08:24 Dose: 81 mg Atorvastatin Calcium (Atorvastatin 40 Mg Tab) 40 mg PO PM [facility] Stop: 03/27/23 20:59 Last Admin: 02/25/23 20:26 Dose: 40 mg Dextrose (Dextrose 50% 50 Ml Syringe) 25 - 50 ml IV UD PRN; Protocol PRN Reason: Hypoglycemia Protocol Stop: 03/26/23 13:30 Docusate Sodium (Docusate Sodium 100 Mg Cap) 100 mg PO DAILY [facility] Stop: 03/27/23 08:59 Last Admin: 02/26/23 08:24 Dose: 100 mg Famotidine (Famotidine 20 Mg Tab) 20 mg PO BID [facility] Stop: 03/26/23 20:59 Last Admin: 02/26/23 08:25 Dose: 20 mg Glucagon (Glucagon For Inj 1 Mg Vial) 1 mg SQ UD PRN; Protocol PRN Reason: Hypoglycemia Protocol Stop: 03/26/23 13:30 Glucose (Glucose 10 Tab/Tube) 4 - 8 tab PO UD PRN; Protocol PRN Reason: Hypoglycemia Treatment Stop: 03/26/23 13:30 Glucose (Glucose 40% Gel 15 Gm Tube) 15 - 30 gm PO UD PRN; Protocol PRN Reason: Hypoglycemia Protocol Stop: 03/26/23 13:30 Hydrochlorothiazide (Hydrochlorothiazide 25 Mg Tab) 12.5 mg PO QAM [facility] Stop: 03/27/23 08:59 Last Admin: 02/26/23 08:23 Dose: 12.5 mg Heparin Sodium/Dextrose (Heparin Sodium/Dextrose) 25,000 units in 500 mls @ 27 mls/hr IV .[id number] [facility]; Protocol Stop: 03/26/23 20:29 Last Admin: 02/26/23 08:31 Dose: 1,350 units/hr, 27 mls/hr Insulin Aspart (Insulin Aspart Per Unit Charge) 0 units SC ACHS [facility] Stop: 03/26/23 16:29 Last Admin: 02/26/23 10:02 Dose: 3 units Insulin Glargine (Lantus Per Unit Charge) 0 - 10 units SQ BID [facility] Stop: 03/26/23 20:59 Last Admin: 02/26/23 10:02 Dose: 5 units Isosorbide Mononitrate (Isosorbide [place] Extended Rel 30 Mg Tabcr) 30 mg PO QAM [facility] Stop: 03/27/23 14:14 Last Admin: 02/26/23 08:24 Dose: 30 mg Metoprolol Succinate (Metoprolol Succ 25mg Ext Rel Tab) 12.5 mg PO QAM [facility] Stop: 03/28/23 08:59 Last Admin: 02/26/23 08:25 Dose: 12.5 mg Miscellaneous (Carbohydrates For Hypoglycemia ) 15 - 30 gm PO UD PRN PRN Reason: Hypoglycemia Protocol Stop: 03/26/23 13:30 Ondansetron HCl (Ondansetron Inj 2 Mg/Ml 2 Ml Vial) 4 mg IV Q6H PRN PRN Reason: Nausea Stop: 03/26/23 13:30 Pantoprazole Sodium ([facility] 40 Mg Tab) [facility]: 03/27/23 08:59 Last Admin: 02/26/23 08:24 Dose: 40 mg Polyethylene Glycol (Polyethylene (Miralax) 17 Gm Pack) 17 gm PO DAILY PRN PRN Reason: Constipation Stop: 03/26/23 13:30 Trazodone HCl (Trazodone Hcl 50 Mg Tab) 50 mg PO [facility] Stop: 03/26/23 20:59 Last Admin: 02/25/23 20:27 Dose: 50 mg Valsartan (Valsartan 80 Mg Tab) 160 [facility] [place] Stop: 03/27/23 08:59 Last Admin: 02/26/23 08:23 Dose: 160 mg Vitamin D (Cholecalciferol 400 Units 10 Mcg Tab) [facility] [place] Stop: 03/27/23 08:59 Last Admin: 02/26/23 08:24 Dose: 400 units
[2023-02-26 08:23] LABS: Partial Thromboplastin Ratio 2.8
[2023-02-26] MEDS: VALSARTAN 80 MG TAB PO SCH (08:23)
[2023-02-26] MEDS: hydroCHLOROthiazide 25 MG TAB PO SCH (08:23)
[2023-02-26] MEDS: ASCORBIC ACID 500 MG TAB PO SCH (08:24)
[2023-02-26] MEDS: DOCUSATE SODIUM 100 MG CAP PO SCH (08:24)
[2023-02-26] MEDS: PANTOprazole 40 MG TAB PO SCH (08:24)
[2023-02-26] MEDS: ISOSORBIDE MONO EXTENDED REL 30 MG TABCR PO SCH (08:24)
[2023-02-26] MEDS: CHOLECALCIFEROL 400 UNITS 10 MCG TAB PO SCH (08:24)
[2023-02-26] MEDS: ASPIRIN 81 MG ECTAB PO SCH (08:24)
[2023-02-26] MEDS: ACETAMINOPHEN 500 MG TAB PO SCH ×3 (08:24→22:40)
[2023-02-26] MEDS: METOPROLOL SUCC 25MG EXT REL TAB PO SCH (08:25)
[2023-02-26] MEDS: FAMOTIDINE 20 MG TAB PO SCH ×2 (08:25→22:34)
[2023-02-26 08:29] LABS: Partial Thromboplastin Time 80.3 Seconds (21.0-31.0)
[2023-02-26] MEDS: HEPARIN SODIUM/DEXTROSE 25,000 UNITS/500 ML BAG IV SCH (08:31)
[2023-02-26] MEDS: INSULIN ASPART PER UNIT CHARGE SC SCH ×4 (10:02→22:34)
[2023-02-26] MEDS: LANTUS PER UNIT CHARGE SQ SCH ×2 (10:02→22:41)
[2023-02-26] MEDS ORDERED: ISOSORBIDE MONO EXTENDED REL 30 MG TABCR PO ONE (11:07)
[2023-02-26 16:33] LABS: Partial Thromboplastin Ratio 1.2; Partial Thromboplastin Time 34.8 Seconds (21.0-31.0)
--- NOTE | 2023-02-26 16:52 | Hospitalist Progress Note ---
Date of Service February 26, 2023 Assessment & Plan (1) Chest pain: Plan: NSTEMI Initial troponin was 11.3 which went up to 86.8 at the third set and then was trending down Likely has NSTEMI-heparin was initiated which has been discontinued today Appreciate cardiology input and recommendation Echo ordered in a.m.-there is mild concentric LVH, LV wall motion is normal, LV systolic function is normal with EF 60 to 65%, RV is mildly dilated, RV systolic function is normal, significant tricuspid regurgitation is absent Doppler findings do not suggest pulmonary hypertension and there is grade 1 diastolic dysfunction with aortic valve sclerosis mild without significant stenosis . Clinically much better and denies any cardiac symptoms Likely discharge tomorrow (2) Abnormal EKG: Plan: Reviewed EKG, concerns for left bundle branch block. Continue telemetry monitoring (3) Congestive heart failure: Plan: Continue home meds at this time Mild congestive heart failure likely secondary to diastolic heart failure and may have history of chronic diastolic heart failure (4) MEGAN (obstructive sleep apnea): Plan: Stable (5) Diabetes type 2, controlled: Plan: Held home meds at this time Put him on sliding scale and Lantus. (6) Essential hypertension: Plan: Continue valsartan and amlodipine Plan Plan would be to monitor tropes, get EKG in a.m. If any abnormality noted will consider cardiology evaluation and a possible stress test. Patient is a DNR Admission and Anticipated Discharge Date Admission Date: February 25, 2023 Subjective 02/26/2023 The patient was seen and examined in medical telemetry unit He remains stable and complains to have weakness only Denies any chest pain, palpitation or shortness of breath Review of Systems Review of Systems: All systems reviewed and are unremarkable except as noted below Physical Exam Physical Exam: Lying in bed comfortably Constitutional: well developed, well nourished and + obese; not ill appearing Eyes: PERRL, conjunctivae normal, anicteric sclerae ENMT: external ear and nose normal, oropharynx normal Neck: trachea midline, no thyromegaly Respiratory: no respiratory distress Auscultation: lungs clear to auscultation bilaterally Cardiovascular: Rate/Rhythm: regular rate and regular rhythm; not tachycardic Heart Sounds: normal S1 and normal S2; no murmur Extremities: + edema (Trace edema bilaterally) Gastrointestinal (Abdomen): Inspection/Auscultation: normal bowel sounds; abdomen not distended Percussion/Palpation: abdomen soft; abdomen nontender Musculoskeletal: No acute arthritis involving any joint Neurologic: normal touch/pain/proprioception and moves all extremities; no focal motor deficits Psychiatric: A+Ox3, euthymic affect Lymphatic: no cervical or axillary lymphadenopathy Results & Data Results & Data Vital Signs (Past 12 Hours) Vital Signs Temp Pulse Pulse Resp BP Pulse Ox O2 Del Method 02/26/23 15:09 36.5 C 63 17 130/70 96 Room Air 02/26/23 14:00 62 02/26/23 11:11 36.5 C 57 L 16 118/66 96 Room Air 02/26/23 09:00 Room Air 02/26/23 07:39 36.6 C 62 18 129/66 94 Room Air 02/26/23 07:00 64 Medications Administered Current Inpatient Medications Acetaminophen (Acetaminophen 500 Mg Tab) 1,000 mg PO TID [facility] Stop: 03/26/23 13:59 Last Admin: 02/26/23 14:50 Dose: Not Given Al Hydrox/Mg Hydrox/Simethicone (Aluminum/Magnesium Susp 30 Ml Udc) 15 ml PO Q4H PRN PRN Reason: Dyspepsia Stop: 03/26/23 13:30 Ascorbic Acid (Ascorbic Acid 500 Mg Tab) 500 mg PO DAILY [facility] Stop: 03/27/23 08:59 Last Admin: 02/26/23 08:24 Dose: 500 mg Aspirin (Aspirin 81 Mg Ectab) 81 mg PO QAM [facility] Stop: 03/27/23 08:59 Last Admin: 02/26/23 08:24 Dose: 81 mg Atorvastatin Calcium (Atorvastatin 40 Mg Tab) 40 mg PO PM [facility] Stop: 03/27/23 20:59 Last Admin: 02/25/23 20:26 Dose: 40 mg Dextrose (Dextrose 50% 50 Ml Syringe) 25 - 50 ml IV UD PRN; Protocol PRN Reason: Hypoglycemia Protocol Stop: 03/26/23 13:30 Docusate Sodium (Docusate Sodium 100 Mg Cap) 100 mg PO DAILY [facility] Stop: 03/27/23 08:59 Last Admin: 02/26/23 08:24 Dose: 100 mg Famotidine (Famotidine 20 Mg Tab) 20 mg PO BID [facility] Stop: 03/26/23 20:59 Last Admin: 02/26/23 08:25 Dose: 20 mg Glucagon (Glucagon For Inj 1 Mg Vial) 1 mg SQ UD PRN; Protocol PRN Reason: Hypoglycemia Protocol Stop: 03/26/23 13:30 Glucose (Glucose 10 Tab/Tube) 4 - 8 tab PO UD PRN; Protocol PRN Reason: Hypoglycemia Treatment Stop: 03/26/23 13:30 Glucose (Glucose 40% Gel 15 Gm Tube) 15 - 30 gm PO UD PRN; Protocol PRN Reason: Hypoglycemia Protocol Stop: 03/26/23 13:30 Hydrochlorothiazide (Hydrochlorothiazide 25 Mg Tab) 12.5 mg PO QAM [facility] Stop: 03/27/23 08:59 Last Admin: 02/26/23 08:23 Dose: 12.5 mg Insulin Aspart (Insulin Aspart Per Unit Charge) 0 units SC ACHS [facility] Stop: 03/26/23 16:29 Last Admin: 02/26/23 12:55 Dose: 3 units Insulin Glargine (Lantus Per Unit Charge) 0 - 10 units SQ BID [facility] Stop: 03/26/23 20:59 Last Admin: 02/26/23 10:02 Dose: 5 units Isosorbide Mononitrate (Isosorbide [place] Extended Rel 60 Mg Tabcr) [facility] [place] Stop: 03/29/23 08:59 Metoprolol Succinate (Metoprolol Succ 25mg Ext Rel Tab) 12.5 [facility] [place] Stop: 03/28/23 08:59 Last Admin: 02/26/23 08:25 Dose: 12.5 mg Miscellaneous (Carbohydrates For Hypoglycemia ) 15 - 30 gm PO UD PRN PRN Reason: Hypoglycemia Protocol Stop: 03/26/23 13:30 Ondansetron HCl (Ondansetron Inj 2 Mg/Ml 2 Ml Vial) 4 mg IV Q6H PRN PRN Reason: Nausea Stop: 03/26/23 13:30 Pantoprazole Sodium (Pantoprazole 40 Mg Tab) [facility] [place] Stop: 03/27/23 08:59 Last Admin: 02/26/23 08:24 Dose: 40 mg Polyethylene Glycol (Polyethylene (Miralax) 17 Gm Pack) 17 gm PO DAILY PRN PRN Reason: Constipation Stop: 03/26/23 13:30 Trazodone HCl (Trazodone Hcl 50 Mg Tab) 50 mg PO HS [facility] Stop: 03/26/23 20:59 Last Admin: 02/25/23 20:27 Dose: 50 mg Valsartan (Valsartan 80 Mg Tab) 160 mg PO [facility] Stop: 03/27/23 08:59 Last Admin: 02/26/23 08:23 Dose: 160 mg Vitamin D (Cholecalciferol 400 Units 10 Mcg Tab) 400 units PO [facility] Stop: 03/27/23 08:59 Last Admin: 02/26/23 08:24 Dose: 400 units (1) Chest pain Chest pain type: unspecified Qualified Code(s): R07.9 - Chest pain, unspecified
[2023-02-26] MEDS: ATORVASTATIN 40 MG TAB PO SCH (22:34)
[2023-02-26] MEDS: HEPARIN SOD 5,000 UNIT/0.5 ML VIAL SQ SCH (22:35)
[2023-02-26] MEDS: traZODone HCL 50 MG TAB PO SCH (22:40)
[2023-02-27 06:25] LABS: Basophils # (auto) 0.04 K/uL (0-0.2); Basophils % (auto) 0.4 %; Eosinophils # (auto) 0.08 K/uL (0-0.50); Eosinophils % (auto) 0.8 %; Hematocrit (blood only) 37.3 % (42.0-52.0); Hemoglobin 12.3 g/dl (14.0-18.0); Immature Granulocytes # (auto) 0.03 K/uL (0.01-0.20); Immature Granulocytes % (auto) 0.3 %; Lymphocytes # (auto) 1.33 K/uL (1.2-3.4); Lymphocytes % (auto) 12.6 %; Mean Corpuscular Hemoglobin 30.2 pg (25.0-34.0); Mean Corpuscular Volume 91.6 fL (80.0-100.0); Mean Platelet Volume 9.6 fL (9.4-12.4); Monocytes # (auto) 0.92 K/uL (0.11-0.59); Monocytes % (auto) 8.7 %; Neutrophils # (auto) 8.15 K/uL (1.40-6.50); Neutrophils % (auto) 77.2 %; Platelet Count 316 K/uL (130-400); RDW Coefficient of Variation 14.3 % (11.5-14.5); RDW Standard Deviation 47.9 fL (36.4-46.3); Red Blood Count 4.07 M/uL (4.70-6.10); White Blood Count 10.55 K/ul (4.8-10.8)
[2023-02-27 07:29] LABS: BUN Creatinine Ratio 23.1 (10-20); Calcium 9.4 mg/dl (8.6-10.3); Creatinine Clr Calc Pharmacy 53.7 ml/min; Est GFR (African American) 71.6 ml/min; Est GFR (Non-African American) 61.8 ml/min; Magnesium 2.3 mg/dl (1.7-2.4); Potassium 3.8 mmol/L (3.5-5.1)
[2023-02-27 08:26] LABS: Lyme Ab IgG w/WB Rflx Negative (Negative); Lyme Ab IgM w/WB Rflx Negative (Negative)
[2023-02-27] MEDS: HEPARIN SOD 5,000 UNIT/0.5 ML VIAL SQ SCH ×2 (09:06→20:37)
[2023-02-27] MEDS: ASPIRIN 81 MG ECTAB PO SCH (09:06)
[2023-02-27] MEDS: FAMOTIDINE 20 MG TAB PO SCH ×2 (09:06→20:37)
[2023-02-27] MEDS: hydroCHLOROthiazide 25 MG TAB PO SCH (09:07)
[2023-02-27] MEDS: CHOLECALCIFEROL 400 UNITS 10 MCG TAB PO SCH (09:08)
[2023-02-27] MEDS: VALSARTAN 80 MG TAB PO SCH (09:08)
[2023-02-27] MEDS: PANTOprazole 40 MG TAB PO SCH (09:08)
[2023-02-27] MEDS: ISOSORBIDE MONO EXTENDED REL 60 MG TABCR PO SCH (09:08)
[2023-02-27] MEDS: ASCORBIC ACID 500 MG TAB PO SCH (09:09)
[2023-02-27] MEDS: INSULIN ASPART PER UNIT CHARGE SC SCH ×4 (09:14→23:35)
[2023-02-27] MEDS: LANTUS PER UNIT CHARGE SQ SCH ×2 (09:15→20:34)
[2023-02-27] MEDS: ACETAMINOPHEN 500 MG TAB PO SCH ×3 (09:18→20:37)
[2023-02-27] MEDS: DOCUSATE SODIUM 100 MG CAP PO SCH (09:19)
[2023-02-27] MEDS: METOPROLOL SUCC 25MG EXT REL TAB PO SCH (09:20)
--- NOTE | 2023-02-27 10:56 | Cardiology Progress Note ---
Date of Service February 27, 2023 Assessment & Plan (1) Chest pain: (2) NSTEMI (non-ST elevated myocardial infarction): (3) Hypertension: (4) Ventricular ectopy: Plan See attending cardiologists plan for further recommendations and plan of care. Admission and Anticipated Discharge Date Admission Date: February 25, 2023 Supervising Physician Co-Signing Physician Notes Attending Staff: Pt seen and evaluated with AP Staff. Concur with observations and plans 87 yo man presenting with chest pain Lives in assisted living Chest pain Duration - 20 min Resolved with ASA + SL NTG en route to ED EKG - sinus tach + PVCs Troponin - negative initially - trending upward to 86 (peak) Started on IV Heparin Dx: NSETMI ECHOcardiogram: 02/24/2023 LV function normal - 60-65% No WMA No . No major valvular disease Hx: * HTN * Hyperlipidemia * DM * Prior CVA/TIA * Ventricular ectopy (PVCs/ NSVT) * No known CAD * Negative stress in 2020 in response to syncope Plan: * Opting for conservative management at present * No Angina overnight; 12+ second pause * SBP 161 mmHg * Continue Valsartan 160 mg po per day * Continue HCTZ 25 mg po per day (patient does not appear to be volume overloaded) * Continue Imdur to 60 mg po per day for angina control * Reconsider antihypertensive regimen post Pacer consideration * Lopressor (OFF) * STOP Toprol 12.5 mg po per day * K+ goal 4.5-5 * KDUR 60 meq po per day * Mag goal >2 * TSH- CHECK * 12+ second pause repeated by longer bout this AM * Consideration for Pacer; patient is open to a pacemaker - will connect with EP service * Given conservative management of CAD, suspect beta blockers would still be an important part of his managment * Continue ASA 81 mg po per day * PT/OT * Ambulatory sat * LDL 48 * Continue Lipitor 40 mg po per day Braydon Wong Subjective Events overnight: * Pause noted on telemetry - 12+ seconds Subjective: * No complaints Review of Systems Review of Systems: All systems reviewed & are unremarkable except as noted in HPI & below Physical Exam Physical Exam: Exam: obese JVP @ base of neck S1S2 2/6 Systolic murmur - No severe appreciated CTA B No C/c/E Warm and perfusing Results & Data Vital Signs (Past 12 Hours) Vital Signs Temp Pulse Pulse Resp BP Pulse Ox O2 Del Method 02/27/23 07:30 36.9 C 93 H 16 161/75 H 88 L Room Air 02/27/23 07:55 64 02/27/23 03:09 36.2 C L 72 18 154/80 H 93 Room Air 02/27/23 00:08 76 02/27/23 02:52 59 L 02/27/23 02:28 Room Air 02/26/23 23:13 36.3 C L 61 18 148/62 H 93 Room Air Laboratory Results Coagulation 02/26/23 Range/Units 15:32 APTT 34.8 H (21.0-31.0) Seconds CBC 02/27/23 Range/Units 06:00 WBC 10.55 (4.8-10.8) K/ul RBC 4.07 L (4.70-6.10) M/uL Hgb 12.3 L (14.0-18.0) g/dl Hct 37.3 L (42.0-52.0) % Plt Count 316 (130-400) K/uL Neut # (Auto) 8.15 H (1.40-6.50) K/uL Lymph # (Auto) 1.33 (1.2-3.4) K/uL [place] # (Auto) 0.92 H (0.11-0.59) K/uL Eos # (Auto) 0.08 (0-0.50) K/uL Baso # (Auto) 0.04 (0-0.2) K/uL Comprehensive Metabolic Panel 02/27/23 Range/Units 06:00 Sodium 135 L (136-145) mmol/L Potassium 3.8 (3.5-5.1) mmol/L Chloride 99 (98-107) mmol/L Carbon Dioxide 28 (21-32) mmol/L BUN 25 H (6-23) mg/dl Creatinine 1.08 (0.6-1.4) mg/dl Glucose 133 H (70-99(Fasting)) mg/dl Calcium 9.4 (8.6-10.3) mg/dl Intake and Output 02/26/23 02/27/23 02/27/23 22:59 06:59 14:59 Intake Total 260 / 1523.2 Output Total 100 / 450 350 / 450 Balance 160 / 1073.2 -350 / 1073.2 Intake: Oral 260 / 980 Output: Urine 350 / 350 Other 100 / 100 Other: Other Intake Source sips # Unmeasured Voids 1 Weight 94.1 kg Weight Measurement Method Built in [facility] Medications Administered Current Inpatient Medications Acetaminophen (Acetaminophen 500 Mg Tab) 1,000 mg PO TID [facility] Stop: 03/26/23 13:59 Last Admin: 02/27/23 09:18 Dose: 1,000 mg Al Hydrox/Mg Hydrox/Simethicone (Aluminum/Magnesium Susp 30 Ml Udc) 15 ml PO Q4H PRN PRN Reason: Dyspepsia Stop: 03/26/23 13:30 Ascorbic Acid (Ascorbic Acid 500 Mg Tab) 500 mg PO DAILY [facility] Stop: 03/27/23 08:59 Last Admin: 02/27/23 09:09 Dose: 500 mg Aspirin (Aspirin 81 Mg Ectab) 81 mg PO QAM [facility] Stop: 03/27/23 08:59 Last Admin: 02/27/23 09:06 Dose: 81 mg Atorvastatin Calcium (Atorvastatin 40 Mg Tab) 40 mg PO PM [facility] Stop: 03/27/23 20:59 Last Admin: 02/26/23 22:34 Dose: 40 mg Dextrose (Dextrose 50% 50 Ml Syringe) 25 - 50 ml IV UD PRN; Protocol PRN Reason: Hypoglycemia Protocol Stop: 03/26/23 13:30 Docusate Sodium (Docusate Sodium 100 Mg Cap) 100 mg PO DAILY [facility] Stop: 03/27/23 08:59 Last Admin: 02/27/23 09:19 Dose: 100 mg Famotidine (Famotidine 20 Mg Tab) 20 mg PO BID [facility] Stop: 03/26/23 20:59 Last Admin: 02/27/23 09:06 Dose: 20 mg Glucagon (Glucagon For Inj 1 Mg Vial) 1 mg SQ UD PRN; Protocol PRN Reason: Hypoglycemia Protocol Stop: 03/26/23 13:30 Glucose (Glucose 10 Tab/Tube) 4 - 8 tab PO UD PRN; Protocol PRN Reason: Hypoglycemia Treatment Stop: 03/26/23 13:30 Glucose (Glucose 40% Gel 15 Gm Tube) 15 - 30 gm PO UD PRN; Protocol PRN Reason: Hypoglycemia Protocol Stop: 03/26/23 13:30 Heparin Sodium (Porcine) (Heparin Sod 5,000 Unit/0.5 Ml Vial) 5,000 units SQ Q12 [facility] Stop: 03/28/23 20:59 Last Admin: 02/27/23 09:06 Dose: 5,000 units Hydrochlorothiazide (Hydrochlorothiazide 25 Mg Tab) 12.5 mg PO QAM [facility] Stop: 03/27/23 08:59 Last Admin: 02/27/23 09:07 Dose: 12.5 mg Insulin Aspart (Insulin Aspart Per Unit Charge) 0 units SC ACHS [facility] Stop: 03/26/23 16:29 Last Admin: 02/27/23 09:14 Dose: 6 units Insulin Glargine (Lantus Per Unit Charge) 0 - 10 units SQ BID [facility] Stop: 03/26/23 20:59 Last Admin: 02/27/23 09:15 Dose: 5 units Isosorbide Mononitrate (Isosorbide [place] Extended Rel 60 Mg Tabcr) 60 mg PO [facility] Stop: 03/29/23 08:59 Last Admin: 02/27/23 09:08 Dose: 60 mg Metoprolol Succinate (Metoprolol Succ 25mg Ext Rel Tab) 12.5 mg PO [facility] Stop: 03/28/23 08:59 Last Admin: 02/27/23 09:20 Dose: 12.5 mg Miscellaneous (Carbohydrates For Hypoglycemia ) 15 - 30 gm PO UD PRN PRN Reason: Hypoglycemia Protocol Stop: 03/26/23 13:30 Ondansetron HCl (Ondansetron Inj 2 Mg/Ml 2 Ml Vial) 4 mg IV Q6H PRN PRN Reason: Nausea Stop: 03/26/23 13:30 Pantoprazole Sodium (Pantoprazole 40 Mg Tab) [facility] [place] Stop: 03/27/23 08:59 Last Admin: 02/27/23 09:08 Dose: 40 mg Polyethylene Glycol (Polyethylene (Miralax) 17 Gm Pack) 17 gm PO DAILY PRN PRN Reason: Constipation Stop: 03/26/23 13:30 Trazodone HCl (Trazodone Hcl 50 Mg Tab) 50 mg PO HS [facility] Stop: 03/26/23 20:59 Last Admin: 02/26/23 22:40 Dose: 50 mg Valsartan (Valsartan 80 Mg Tab) 160 [facility] [place] Stop: 03/27/23 08:59 Last Admin: 02/27/23 09:08 Dose: 160 mg Vitamin D (Cholecalciferol 400 Units 10 Mcg Tab) 400 [facility] [place] Stop: 03/27/23 08:59 Last Admin: 02/27/23 09:08 Dose: 400 units (1) Chest pain Chest pain type: unspecified Qualified Code(s): R07.9 - Chest pain, unspecified
[2023-02-27] MEDS ORDERED: POTASSIUM CHLORIDE CRTAB 20 MEQ TABCR PO ONE (11:13)
--- NOTE | 2023-02-27 13:56 | Hospitalist Progress Note ---
Date of Service February 27, 2023 Assessment & Plan (1) Chest pain: Plan: NSTEMI Initial troponin was 11.3 which went up to 86.8 at the third set and then was trending down Likely has NSTEMI-heparin was initiated which has been discontinued today Appreciate cardiology input and recommendation Echo ordered in a.m.-there is mild concentric LVH, LV wall motion is normal, LV systolic function is normal with EF 60 to 65%, RV is mildly dilated, RV systolic function is normal, significant tricuspid regurgitation is absent Doppler findings do not suggest pulmonary hypertension and there is grade 1 diastolic dysfunction with aortic valve sclerosis mild without significant stenosis . Clinically much better and denies any cardiac symptoms No cardiac symptoms except pauses as below Prolonged sinus pauses up to 20 seconds Patient remains weak and lethargic but no other symptoms reported Discussed with the bilingual medical assistant and the patient was transferred to telemetry unit for possible pacemaker insertion Beta-flori is on hold (2) Abnormal EKG: Plan: Reviewed EKG, concerns for left bundle branch block. Continue telemetry monitoring Continues to have intermittent pauses up to 20 seconds (3) Congestive heart failure: Plan: Continue home meds at this time Mild congestive heart failure likely secondary to diastolic heart failure and may have history of chronic diastolic heart failure No signs or symptoms of fluid overload (4) MEGAN (obstructive sleep apnea): Plan: Stable (5) Diabetes type 2, controlled: Plan: Held home meds at this time Put him on sliding scale and Lantus. (6) Essential hypertension: Plan: Continue valsartan and amlodipine Plan DVT prophylaxis Subcu heparin CODE STATUS Patient is a DNR Admission and Anticipated Discharge Date Admission Date: February 25, 2023 Subjective 02/26/2023 The patient was seen and examined in medical telemetry unit He remains stable and complains to have weakness only Denies any chest pain, palpitation or shortness of breath 02/27/2023 The patient was seen and examined in medical telemetry unit He was noted to have long pauses up to 20 seconds repeatedly since last night Remained very weak and lethargic but did not have any other symptoms or situation noted by the nurse This morning he was weak and lethargic but conversing normally and denies any symptoms He was transferred to telemetry unit for continuation of care Review of Systems Review of Systems: All systems reviewed and are unremarkable except as noted below Physical Exam Physical Exam: Lying in bed comfortably but looked very weak and lethargic Constitutional: well developed, well nourished and + obese; not ill appearing Eyes: PERRL, conjunctivae normal, anicteric sclerae ENMT: external ear and nose normal, oropharynx normal Neck: trachea midline, no thyromegaly Respiratory: no respiratory distress Auscultation: lungs clear to auscultation bilaterally Cardiovascular: Rate/Rhythm: regular rate and regular rhythm; not tachycardic Heart Sounds: normal S1 and normal S2; no murmur Extremities: + edema (Trace edema bilaterally) Gastrointestinal (Abdomen): Inspection/Auscultation: normal bowel sounds; abdomen not distended Percussion/Palpation: abdomen soft; abdomen nontender Musculoskeletal: No acute arthritis involving any of the joint Neurologic: normal touch/pain/proprioception and moves all extremities; no focal motor deficits Psychiatric: A+Ox3, euthymic affect Lymphatic: no cervical or axillary lymphadenopathy Results & Data Results & Data Vital Signs (Past 12 Hours) Vital Signs Temp Pulse Pulse Resp BP Pulse Ox O2 Del Method 02/27/23 13:39 Nasal Cannula 02/27/23 11:15 36.9 C 118 H 16 127/74 93 Nasal Cannula 02/27/23 08:00 Room Air 02/27/23 07:30 36.9 C 93 H 16 161/75 H 88 L Room Air 02/27/23 07:55 64 02/27/23 03:09 36.2 C L 72 18 154/80 H 93 Room Air 02/27/23 02:52 59 L 02/27/23 02:28 Room Air O2 Flow Rate 02/27/23 13:39 2 02/27/23 11:15 2 02/27/23 08:00 02/27/23 07:30 02/27/23 07:55 02/27/23 03:09 02/27/23 02:52 02/27/23 02:28 Laboratory Results Short CBC 02/27/23 Range/Units 06:00 WBC 10.55 (4.8-10.8) K/ul Hgb 12.3 L (14.0-18.0) g/dl Hct 37.3 L (42.0-52.0) % Plt Count 316 (130-400) K/uL BMP 02/27/23 06:00 Sodium 135 L Potassium 3.8 Chloride 99 Carbon Dioxide 28 BUN 25 H Creatinine 1.08 Glucose 133 H Calcium 9.4 Medications Administered Current Inpatient Medications Acetaminophen (Acetaminophen 500 Mg Tab) 1,000 mg PO TID [facility] Stop: 03/26/23 13:59 Last Admin: 02/27/23 09:18 Dose: 1,000 mg Al Hydrox/Mg Hydrox/Simethicone (Aluminum/Magnesium Susp 30 Ml Udc) 15 ml PO Q4H PRN PRN Reason: Dyspepsia Stop: 03/26/23 13:30 Ascorbic Acid (Ascorbic Acid 500 Mg Tab) 500 mg PO DAILY [facility] Stop: 03/27/23 08:59 Last Admin: 02/27/23 09:09 Dose: 500 mg Aspirin (Aspirin 81 Mg Ectab) 81 mg PO QAM [facility] Stop: 03/27/23 08:59 Last Admin: 02/27/23 09:06 Dose: 81 mg Atorvastatin Calcium (Atorvastatin 40 Mg Tab) 40 mg PO PM [facility] Stop: 03/27/23 20:59 Last Admin: 02/26/23 22:34 Dose: 40 mg Dextrose (Dextrose 50% 50 Ml Syringe) 25 - 50 ml IV UD PRN; Protocol PRN Reason: Hypoglycemia Protocol Stop: 03/26/23 13:30 Docusate Sodium (Docusate Sodium 100 Mg Cap) 100 mg PO DAILY [facility] Stop: 03/27/23 08:59 Last Admin: 02/27/23 09:19 Dose: 100 mg Famotidine (Famotidine 20 Mg Tab) 20 mg PO BID [facility] Stop: 03/26/23 20:59 Last Admin: 02/27/23 09:06 Dose: 20 mg Glucagon (Glucagon For Inj 1 Mg Vial) 1 mg SQ UD PRN; Protocol PRN Reason: Hypoglycemia Protocol Stop: 03/26/23 13:30 Glucose (Glucose 10 Tab/Tube) 4 - 8 tab PO UD PRN; Protocol PRN Reason: Hypoglycemia Treatment Stop: 03/26/23 13:30 Glucose (Glucose 40% Gel 15 Gm Tube) 15 - 30 gm PO UD PRN; Protocol PRN Reason: Hypoglycemia Protocol Stop: 03/26/23 13:30 Heparin Sodium (Porcine) (Heparin Sod 5,000 Unit/0.5 Ml Vial) 5,000 units SQ Q12 [facility] Stop: 03/28/23 20:59 Last Admin: 02/27/23 09:06 Dose: 5,000 units Hydrochlorothiazide (Hydrochlorothiazide 25 Mg Tab) 12.5 mg PO QAM [facility] Stop: 03/27/23 08:59 Last Admin: 02/27/23 09:07 Dose: 12.5 mg Insulin Aspart (Insulin Aspart Per Unit Charge) 0 units SC ACHS [facility] Stop: 03/26/23 16:29 Last Admin: 02/27/23 12:07 Dose: Not Given Insulin Glargine (Lantus Per Unit Charge) 0 - 10 units SQ BID [facility] Stop: 03/26/23 20:59 Last Admin: 02/27/23 09:15 Dose: 5 units Isosorbide Mononitrate (Isosorbide [place] Extended Rel 60 Mg Tabcr) 60 mg PO [facility] Stop: 03/29/23 08:59 Last Admin: 02/27/23 09:08 Dose: 60 mg Miscellaneous (Carbohydrates For Hypoglycemia ) 15 - 30 gm PO UD PRN PRN Reason: Hypoglycemia Protocol Stop: 03/26/23 13:30 Ondansetron HCl (Ondansetron Inj 2 Mg/Ml 2 Ml Vial) 4 mg IV Q6H PRN PRN Reason: Nausea Stop: 03/26/23 13:30 Pantoprazole Sodium (Pantoprazole 40 Mg Tab) [facility] [place]: 03/27/23 08:59 Last Admin: 02/27/23 09:08 Dose: 40 mg Polyethylene Glycol (Polyethylene (Miralax) 17 Gm Pack) 17 gm PO DAILY PRN PRN Reason: Constipation Stop: 03/26/23 13:30 Trazodone HCl (Trazodone Hcl 50 Mg Tab) 50 mg PO [facility] Stop: 03/26/23 20:59 Last Admin: 02/26/23 22:40 Dose: 50 mg Valsartan (Valsartan 80 Mg Tab) 160 [facility] Stop: 03/27/23 08:59 Last Admin: 02/27/23 09:08 Dose: 160 mg Vitamin D (Cholecalciferol 400 Units 10 Mcg Tab) [facility] Stop: 03/27/23 08:59 Last Admin: 02/27/23 09:08 Dose: 400 units (1) Chest pain Chest pain type: unspecified Qualified Code(s): R07.9 - Chest pain, unspecified
[2023-02-27] MEDS ORDERED: Nursing to Pharmacy Communication SCH (14:00)
--- NOTE | 2023-02-27 15:52 | Electrocardiogram Report ---
Test Reason : Blood Pressure : / mmHG Vent. Rate : 117 BPM Atrial Rate : 117 BPM P-R Int : 134 ms QRS Dur : 090 ms QT Int : 306 ms P-R-T Axes : 065 -47 095 degrees QTc Int : 426 ms Sinus tachycardia with occasional , and consecutive Premature ventricular complexes Left anterior fascicular block Anterolateral infarct (cited on or before 25-FEB-2023) Abnormal ECG When compared with ECG of 25-FEB-2023 11:37, Premature ventricular complexes are now Present Vent. rate has increased BY 56 BPM Questionable change in initial forces of Anterolateral leads Nonspecific T wave abnormality no longer evident in Inferior leads T wave inversion now evident in Lateral leads Confirmed by Devang Hernandez ([id number]) on 02/27/2023 3:52:12 PM Referred By: Audrey rucker [facility] Confirmed By:Devang Hernandez
[2023-02-27] MEDS: ATORVASTATIN 40 MG TAB PO SCH (20:37)
[2023-02-27] MEDS: traZODone HCL 50 MG TAB PO SCH (20:37)
--- NOTE | 2023-02-27 20:44 | CT Scan Report ---
Exam(s): CT HEAD Without Contrast EXAM: CT Head Without Intravenous Contrast CLINICAL HISTORY: Reason for exam: R/O stroke. TECHNIQUE: Axial computed tomography images of the head/brain without intravenous contrast. CTDI is 37.01 mGy and DLP is 702.46 mGy-cm. Automated exposure control was utilized for the study. A dose lowering technique was utilized adhering to the principles of ALARA. COMPARISON: None. FINDINGS: Brain: Moderate generalized brain atrophy. Decreased attenuation within the deep white matter compatible with microangiopathic white matter disease. No hemorrhage. Ventricles: Unremarkable. No ventriculomegaly. Bones/joints: Unremarkable. No acute fracture. Soft tissues: Unremarkable. Sinuses: Unremarkable as visualized. No acute sinusitis. Mastoid air cells: Unremarkable as visualized. No mastoid effusion. IMPRESSION: 1. Chronic changes as described. 2. No acute intracranial hemorrhage or space-occupying lesion. Electronically signed by: Alina Loera MD 02/27/23 20:43 PM
[2023-02-28 05:05] LABS: Basophils # (auto) 0.03 K/uL (0-0.2); Basophils % (auto) 0.4 %; Eosinophils # (auto) 0.07 K/uL (0-0.50); Eosinophils % (auto) 0.8 %; Hematocrit (blood only) 33.2 % (42.0-52.0); Hemoglobin 10.7 g/dl (14.0-18.0); Immature Granulocytes # (auto) 0.04 K/uL (0.01-0.20); Immature Granulocytes % (auto) 0.5 %; Lymphocytes % (auto) 13.2 %; Mean Corpuscular Hemoglobin 30.1 pg (25.0-34.0); Mean Corpuscular Hgb Conc 32.2 g/dL (32.0-36.0); Mean Corpuscular Volume 93.3 fL (80.0-100.0); Mean Platelet Volume 9.7 fL (9.4-12.4); Monocytes # (auto) 1.01 K/uL (0.11-0.59); Monocytes % (auto) 12.2 %; Neutrophils # (auto) 6.06 K/uL (1.40-6.50); Neutrophils % (auto) 72.9 %; Platelet Count 274 K/uL (130-400); RDW Coefficient of Variation 14.3 % (11.5-14.5); RDW Standard Deviation 48.4 fL (36.4-46.3); Red Blood Count 3.56 M/uL (4.70-6.10); White Blood Count 8.31 K/ul (4.8-10.8)
[2023-02-28 05:09] LABS: BUN Creatinine Ratio 26.1 (10-20); Calcium 8.9 mg/dl (8.6-10.3); Magnesium 2.2 mg/dl (1.7-2.4)
[2023-02-28] MEDS: INSULIN ASPART PER UNIT CHARGE SC SCH ×4 (05:40→21:10)
[2023-02-28] MEDS: VALSARTAN 80 MG TAB PO SCH (09:00)
[2023-02-28] MEDS: ISOSORBIDE MONO EXTENDED REL 60 MG TABCR PO SCH (09:02)
[2023-02-28] MEDS: PANTOprazole 40 MG TAB PO SCH (09:02)
[2023-02-28] MEDS: hydroCHLOROthiazide 25 MG TAB PO SCH (09:04)
[2023-02-28] MEDS: FAMOTIDINE 20 MG TAB PO SCH ×2 (09:05→19:36)
[2023-02-28] MEDS: HEPARIN SOD 5,000 UNIT/0.5 ML VIAL SQ SCH ×2 (09:05→19:37)
[2023-02-28] MEDS: CHOLECALCIFEROL 400 UNITS 10 MCG TAB PO SCH (09:06)
[2023-02-28] MEDS: ASPIRIN 81 MG ECTAB PO SCH (09:06)
[2023-02-28] MEDS: ASCORBIC ACID 500 MG TAB PO SCH (09:06)
[2023-02-28] MEDS: LANTUS PER UNIT CHARGE SQ SCH ×2 (09:14→21:10)
[2023-02-28] MEDS: ACETAMINOPHEN 500 MG TAB PO SCH ×3 (09:15→19:36)
[2023-02-28] MEDS: DOCUSATE SODIUM 100 MG CAP PO SCH (09:15)
--- NOTE | 2023-02-28 10:14 | Cardiology Progress Note ---
Date of Service February 28, 2023 Assessment & Plan (1) NSTEMI (non-ST elevated myocardial infarction): (2) Sinus pause: (3) Hypertension: (4) Ventricular ectopy: Plan 87-year-old patient presenting with chest pain and mildly elevated troponin. Diagnosed with NSTEMI and treated medically. Left ventricular ejection fraction within normal limits, no regional wall motion abnormalities. Beta-flori discontinued secondary to bradycardia and multiple pauses 02/27/2023 ranging from 12-20 seconds. Beta-flori and obstructive sleep apnea likely contributing factors, however, patient admits to noncompliance with CPAP in the outpatient setting. Beta-flori will be an important component of patient's medically managed NSTEMI. Risk versus benefit of permanent pacemaker implantation discussed. Patient agreeable to proceed. We will plan for pacemaker implantation 03/03/[address] Gallardo. Continue valsartan, hydrochlorothiazide, isosorbide monohydrate, aspirin and high intensity statin therapy. Admission and Anticipated Discharge Date Admission Date: February 25, 2023 Subjective Patient seen and examined at the bedside. Awake and alert. Denies chest pain or shortness of breath. No recurrent pauses on telemetry over the past 24 hours. Review of telemetry from the early a.m. of 02/27/2023 reveals 3 pauses ranging from 12-20 seconds in duration. Pauses occurred during sleep. Patient was not wearing CPAP at time. No witnessed apnea or reported hypoxia per nursing staff. Review of Systems Review of Systems: All systems reviewed & are unremarkable except as noted in Subjective Physical Exam Constitutional: well nourished; no acute distress Respiratory: no respiratory distress, no labored breathing and no retractions Cardiovascular: Rate/Rhythm: regular rate and regular rhythm Heart Sounds: normal S1, normal S2 and + murmur (1/6 systolic ejection murmur heard at the base) Vessels: no JVD and no carotid bruit Extremities: no edema Gastrointestinal (Abdomen): Inspection/Auscultation: abdomen normal to inspection and normal bowel sounds; abdomen not distended Neurologic: CN's II-XI intact bilaterally and moves all extremities; no focal motor deficits Results & Data Vital Signs (Past 12 Hours) Vital Signs Temp Pulse Pulse Resp BP BP Pulse Ox 02/28/23 09:00 81 16 96 02/28/23 08:30 66 15 95 02/28/23 08:01 61 17 96 02/28/23 08:01 153/103 H 02/28/23 08:00 68 15 84 L 02/28/23 07:30 67 21 97 02/28/23 07:00 54 L 20 96 02/28/23 06:30 63 14 99 02/28/23 06:00 73 18 96 02/28/23 05:30 66 12 96 02/28/23 05:00 64 10 L 97 02/28/23 04:30 77 14 93 02/28/23 04:00 69 15 96 02/28/23 04:00 123/54 L 02/28/23 03:30 70 14 97 02/28/23 03:00 73 14 96 02/28/23 02:30 72 13 97 02/28/23 02:00 58 L 18 96 02/28/23 02:00 126/68 02/28/23 01:30 58 L 14 98 02/28/23 01:00 57 L 16 97 02/28/23 00:30 62 12 97 02/28/23 00:00 58 L 23 02/28/23 00:00 111/51 L 02/27/23 23:30 60 18 97 02/28/23 04:13 36.5 C 63 12 123/54 L 95 02/27/23 23:00 66 14 02/27/23 23:00 121/54 L 02/27/23 22:30 62 17 97 02/27/23 23:13 63 O2 Del Method O2 Flow Rate 02/28/23 09:00 02/28/23 08:30 02/28/23 08:01 02/28/23 08:01 02/28/23 08:00 02/28/23 07:30 02/28/23 07:00 02/28/23 06:30 02/28/23 06:00 02/28/23 05:30 02/28/23 05:00 02/28/23 04:30 02/28/23 04:00 02/28/23 04:00 02/28/23 03:30 02/28/23 03:00 02/28/23 02:30 02/28/23 02:00 02/28/23 02:00 02/28/23 01:30 02/28/23 01:00 02/28/23 00:30 02/28/23 00:00 02/28/23 00:00 02/27/23 23:30 02/28/23 04:13 Nasal Cannula 2 02/27/23 23:00 02/27/23 23:00 02/27/23 22:30 02/27/23 23:13 Laboratory Results CBC 02/28/23 Range/Units 04:10 WBC 8.31 (4.8-10.8) K/ul RBC 3.56 L (4.70-6.10) M/uL Hgb 10.7 L (14.0-18.0) g/dl Hct 33.2 L (42.0-52.0) % Plt Count 274 (130-400) K/uL Neut # (Auto) 6.06 (1.40-6.50) K/uL Lymph # (Auto) 1.10 L (1.2-3.4) K/uL [place] # (Auto) 1.01 H (0.11-0.59) K/uL Eos # (Auto) 0.07 (0-0.50) K/uL Baso # (Auto) 0.03 (0-0.2) K/uL Comprehensive Metabolic Panel 02/28/23 Range/Units 04:10 Sodium 135 L (136-145) mmol/L Potassium 4.0 (3.5-5.1) mmol/L Chloride 102 (98-107) mmol/L Carbon Dioxide 25 (21-32) mmol/L BUN 24 H (6-23) mg/dl Creatinine 0.92 (0.6-1.4) mg/dl Glucose 113 H (70-99(Fasting)) mg/dl Calcium 8.9 (8.6-10.3) mg/dl Intake and Output 02/27/23 02/28/23 02/28/23 22:59 06:59 14:59 Intake Total 60 / 60 Output Total 100 / 250 150 / 250 200 / 200 Balance -40 / -190 -150 / -190 -200 / -200 Intake: Oral 60 / 60 Output: Urine 100 / 250 150 / 250 200 / 200
--- NOTE | 2023-02-28 11:41 | Hospitalist Progress Note ---
Date of Service February 28, 2023 Assessment & Plan (1) Chest pain: Plan: NSTEMI Initial troponin was 11.3 which went up to 86.8 at the third set and then was trending down Likely has NSTEMI-heparin was initiated which has been discontinued today Appreciate cardiology input and recommendation Echo ordered in a.m.-there is mild concentric LVH, LV wall motion is normal, LV systolic function is normal with EF 60 to 65%, RV is mildly dilated, RV systolic function is normal, significant tricuspid regurgitation is absent Doppler findings do not suggest pulmonary hypertension and there is grade 1 diastolic dysfunction with aortic valve sclerosis mild without significant stenosis . Clinically much better and denies any cardiac symptoms No cardiac symptoms except pauses as below Remains free from any cardiac symptoms Prolonged sinus pauses up to 20 seconds Patient remains weak and lethargic but no other symptoms reported Discussed with the slubber frame changer and the patient was transferred to telemetry unit for possible pacemaker insertion Beta-flori is on hold No more pauses-awaiting for possible pacemaker placement (2) Abnormal EKG: Plan: Reviewed EKG, concerns for left bundle branch block. Continue telemetry monitoring Continues to have intermittent pauses up to 20 seconds (3) Congestive heart failure: Plan: Continue home meds at this time Mild congestive heart failure likely secondary to diastolic heart failure and may have history of chronic diastolic heart failure No signs or symptoms of fluid overload (4) MEGAN (obstructive sleep apnea): Plan: Stable Has been put on CPAP at nighttime (5) Diabetes type 2, controlled: Plan: Held home meds at this time Put him on sliding scale and Lantus. (6) Essential hypertension: Plan: Continue valsartan and amlodipine Blood pressure remains on the upper side at 153/103 We will continue current medications and increase hydrochlorothiazide to 25 mg a day Plan DVT prophylaxis Subcu heparin CODE STATUS Patient is a DNR Admission and Anticipated Discharge Date Admission Date: February 25, 2023 Subjective 02/26/2023 The patient was seen and examined in medical telemetry unit He remains stable and complains to have weakness only Denies any chest pain, palpitation or shortness of breath 02/27/2023 The patient was seen and examined in medical telemetry unit He was noted to have long pauses up to 20 seconds repeatedly since last night Remained very weak and lethargic but did not have any other symptoms or situation noted by the nurse This morning he was weak and lethargic but conversing normally and denies any symptoms He was transferred to telemetry unit for continuation of care 02/28/2023 The patient was seen and examined in ICU He has been stable and heart rate remains stable to without any more evidence of pauses Denies any significant symptoms Awaiting cardiology evaluation for possible pacemaker placement Review of Systems Review of Systems: All systems reviewed and are unremarkable except as noted below Physical Exam Physical Exam: Lying in bed comfortably Constitutional: well developed, well nourished and + obese; not ill appearing Eyes: PERRL, conjunctivae normal, anicteric sclerae ENMT: external ear and nose normal, oropharynx normal Neck: trachea midline, no thyromegaly Respiratory: no respiratory distress Auscultation: lungs clear to auscultation bilaterally Cardiovascular: Rate/Rhythm: regular rate and regular rhythm; not tachycardic Heart Sounds: normal S1 and normal S2; no murmur Extremities: + edema (Trace edema bilaterally) Gastrointestinal (Abdomen): Inspection/Auscultation: normal bowel sounds; abdomen not distended Percussion/Palpation: abdomen soft; abdomen nontender Musculoskeletal: No acute arthritis involving any joint Neurologic: normal touch/pain/proprioception and moves all extremities; no focal motor deficits Psychiatric: A+Ox3, euthymic affect Lymphatic: no cervical or axillary lymphadenopathy Results & Data Results & Data Vital Signs (Past 12 Hours) Vital Signs Temp Pulse Pulse Resp BP BP Pulse Ox 02/28/23 09:00 81 16 96 02/28/23 08:30 66 15 95 02/28/23 08:01 61 17 96 02/28/23 08:01 153/103 H 02/28/23 08:00 68 15 84 L 02/28/23 07:30 67 21 97 02/28/23 07:00 54 L 20 96 02/28/23 06:30 63 14 99 02/28/23 06:00 73 18 96 02/28/23 05:30 66 12 96 02/28/23 05:00 64 10 L 97 02/28/23 04:30 77 14 93 02/28/23 04:00 69 15 96 02/28/23 04:00 123/54 L 02/28/23 03:30 70 14 97 02/28/23 03:00 73 14 96 02/28/23 02:30 72 13 97 02/28/23 02:00 58 L 18 96 02/28/23 02:00 126/68 02/28/23 01:30 58 L 14 98 02/28/23 01:00 57 L 16 97 02/28/23 00:30 62 12 97 02/28/23 00:00 58 L 23 02/28/23 00:00 111/51 L 02/28/23 04:13 36.5 C 63 12 123/54 L 95 O2 Del Method O2 Flow Rate 02/28/23 09:00 02/28/23 08:30 02/28/23 08:01 02/28/23 08:01 02/28/23 08:00 02/28/23 07:30 02/28/23 07:00 02/28/23 06:30 02/28/23 06:00 02/28/23 05:30 02/28/23 05:00 02/28/23 04:30 02/28/23 04:00 02/28/23 04:00 02/28/23 03:30 02/28/23 03:00 02/28/23 02:30 02/28/23 02:00 02/28/23 02:00 02/28/23 01:30 02/28/23 01:00 02/28/23 00:30 02/28/23 00:00 02/28/23 00:00 02/28/23 04:13 Nasal Cannula 2 Laboratory Results Short CBC 02/28/23 Range/Units 04:10 WBC 8.31 (4.8-10.8) K/ul Hgb 10.7 L (14.0-18.0) g/dl Hct 33.2 L (42.0-52.0) % Plt Count 274 (130-400) K/uL BMP 02/28/23 04:10 Sodium 135 L Potassium 4.0 Chloride 102 Carbon Dioxide 25 BUN 24 H Creatinine 0.92 Glucose 113 H Calcium 8.9 Medications Administered Current Inpatient Medications Acetaminophen (Acetaminophen 500 Mg Tab) 1,000 mg PO TID [facility] Stop: 03/26/23 13:59 Last Admin: 02/28/23 09:15 Dose: 1,000 mg Al Hydrox/Mg Hydrox/Simethicone (Aluminum/Magnesium Susp 30 Ml Udc) 15 ml PO Q4H PRN PRN Reason: Dyspepsia Stop: 03/26/23 13:30 Ascorbic Acid (Ascorbic Acid 500 Mg Tab) 500 mg PO DAILY [facility] Stop: 03/27/23 08:59 Last Admin: 02/28/23 09:06 Dose: 500 mg Aspirin (Aspirin 81 Mg Ectab) 81 mg PO QAM [facility] Stop: 03/27/23 08:59 Last Admin: 02/28/23 09:06 Dose: 81 mg Atorvastatin Calcium (Atorvastatin 40 Mg Tab) 40 mg PO PM [facility] Stop: 03/27/23 20:59 Last Admin: 02/27/23 20:37 Dose: 40 mg Dextrose (Dextrose 50% 50 Ml Syringe) 25 - 50 ml IV UD PRN; Protocol PRN Reason: Hypoglycemia Protocol Stop: 03/26/23 13:30 Docusate Sodium (Docusate Sodium 100 Mg Cap) 100 mg PO DAILY [facility] Stop: 03/27/23 08:59 Last Admin: 02/28/23 09:15 Dose: 100 mg Famotidine (Famotidine 20 Mg Tab) 20 mg PO BID [facility] Stop: 03/26/23 20:59 Last Admin: 02/28/23 09:05 Dose: 20 mg Glucagon (Glucagon For Inj 1 Mg Vial) 1 mg SQ UD PRN; Protocol PRN Reason: Hypoglycemia Protocol Stop: 03/26/23 13:30 Glucose (Glucose 10 Tab/Tube) 4 - 8 tab PO UD PRN; Protocol PRN Reason: Hypoglycemia Treatment Stop: 03/26/23 13:30 Glucose (Glucose 40% Gel 15 Gm Tube) 15 - 30 gm PO UD PRN; Protocol PRN Reason: Hypoglycemia Protocol Stop: 03/26/23 13:30 Heparin Sodium (Porcine) (Heparin Sod 5,000 Unit/0.5 Ml Vial) 5,000 units SQ Q12 [facility] Stop: 03/28/23 20:59 Last Admin: 02/28/23 09:05 Dose: 5,000 units Hydrochlorothiazide (Hydrochlorothiazide 25 Mg Tab) 12.5 mg PO QAM [facility] Stop: 03/27/23 08:59 Last Admin: 02/28/23 09:04 Dose: 12.5 mg Insulin Aspart (Insulin Aspart Per Unit Charge) 0 units SC Q6 [facility] Stop: 03/26/23 16:29 Last Admin: 02/28/23 05:40 Dose: Not Given Insulin Glargine (Lantus Per Unit Charge) 0 - 10 units SQ BID [facility] Stop: 03/26/23 20:59 Last Admin: 02/28/23 09:14 Dose: 5 units Isosorbide Mononitrate (Isosorbide [place] Extended Rel 60 Mg Tabcr) 60 mg PO QAM [facility] Stop: 03/29/23 08:59 Last Admin: 02/28/23 09:02 Dose: 60 mg Miscellaneous (Carbohydrates For Hypoglycemia ) 15 - 30 gm PO UD PRN PRN Reason: Hypoglycemia Protocol Stop: 03/26/23 13:30 Ondansetron HCl (Ondansetron Inj 2 Mg/Ml 2 Ml Vial) 4 mg IV Q6H PRN PRN Reason: Nausea Stop: 03/26/23 13:30 Pantoprazole Sodium (Pantoprazole 40 Mg Tab) 40 mg PO QAM [facility] Stop: 03/27/23 08:59 Last Admin: 02/28/23 09:02 Dose: 40 mg Polyethylene Glycol (Polyethylene (Miralax) 17 Gm Pack) 17 gm PO DAILY PRN PRN Reason: Constipation Stop: 03/26/23 13:30 Trazodone HCl (Trazodone Hcl 50 Mg Tab) 50 mg PO HS [facility] Stop: 03/26/23 20:59 Last Admin: 02/27/23 20:37 Dose: 50 mg Valsartan (Valsartan 80 Mg Tab) 160 mg PO QAM [facility] Stop: 03/27/23 08:59 Last Admin: 02/28/23 09:00 Dose: 160 mg Vitamin D (Cholecalciferol 400 Units 10 Mcg Tab) [facility] Stop: 03/27/23 08:59 Last Admin: 02/28/23 09:06 Dose: 400 units (1) Chest pain Chest pain type: unspecified Qualified Code(s): R07.9 - Chest pain, unspecified
[2023-02-28] MEDS: amLODIPine BESYLATE 5 MG TAB PO SCH (12:40)
[2023-02-28] MEDS ORDERED: Nursing to Pharmacy Communication SCH (16:15)
[2023-02-28] MEDS: traZODone HCL 50 MG TAB PO SCH (19:36)
[2023-02-28] MEDS: ATORVASTATIN 40 MG TAB PO SCH (19:37)
[2023-03-01] MEDS: LANTUS PER UNIT CHARGE SQ SCH ×2 (08:08→20:16)
[2023-03-01] MEDS: INSULIN ASPART PER UNIT CHARGE SC SCH ×4 (08:13→20:09)
[2023-03-01] MEDS: ISOSORBIDE MONO EXTENDED REL 60 MG TABCR PO SCH (08:14)
[2023-03-01] MEDS: VALSARTAN 80 MG TAB PO SCH (08:14)
[2023-03-01] MEDS: FAMOTIDINE 20 MG TAB PO SCH ×2 (08:14→20:10)
[2023-03-01] MEDS: ASCORBIC ACID 500 MG TAB PO SCH (08:14)
[2023-03-01] MEDS: amLODIPine BESYLATE 5 MG TAB PO SCH (08:14)
[2023-03-01] MEDS: CHOLECALCIFEROL 400 UNITS 10 MCG TAB PO SCH (08:14)
[2023-03-01] MEDS: hydroCHLOROthiazide 25 MG TAB PO SCH (08:14)
[2023-03-01] MEDS: HEPARIN SOD 5,000 UNIT/0.5 ML VIAL SQ SCH ×2 (08:15→20:11)
[2023-03-01] MEDS: ASPIRIN 81 MG ECTAB PO SCH (08:15)
[2023-03-01] MEDS: PANTOprazole 40 MG TAB PO SCH (08:15)
[2023-03-01] MEDS: ACETAMINOPHEN 500 MG TAB PO SCH ×3 (08:18→20:17)
[2023-03-01] MEDS: DOCUSATE SODIUM 100 MG CAP PO SCH (08:18)
--- NOTE | 2023-03-01 11:06 | Cardiology Progress Note ---
Date of Service March 01, 2023 Assessment & Plan (1) NSTEMI (non-ST elevated myocardial infarction): (2) Sinus pause: (3) Hypertension: (4) Ventricular ectopy: Plan 87-year-old patient presenting with chest pain and mildly elevated troponin. Diagnosed with NSTEMI and treated medically. Left ventricular ejection fraction within normal limits, no regional wall motion abnormalities. Beta-flori discontinued secondary to bradycardia and multiple pauses 02/27/2023 ranging from 12-20 seconds. Beta-flori and obstructive sleep apnea likely contributing factors, however, patient admits to noncompliance with CPAP in the outpatient setting. Beta-flori will be an important component of patient's medically managed NSTEMI. Risk versus benefit of permanent pacemaker implantation reviewed. Patient agreeable to proceed. Pacemaker implantation scheduled 03/03/[address] Gallardo. Restart beta-flori post pacemaker implantation. Continue valsartan, hydrochlorothiazide, isosorbide monohydrate, aspirin and high intensity statin therapy. Admission and Anticipated Discharge Date Admission Date: February 25, 2023 Subjective Patient seen and examined at the bedside. Feeling well today. No chest pain or shortness of breath. Denies lightheadedness, dizziness, syncope, or near syncope. Telemetry with heart rate ranging from 50 up to 110 bpm. Occasional PVCs and ventricular triplets recorded. No significant pauses. Beta-flori remains on hold. Review of Systems Review of Systems: All systems reviewed & are unremarkable except as noted in Subjective Physical Exam Constitutional: well nourished; no acute distress Respiratory: no respiratory distress, no labored breathing and no retractions Cardiovascular: Rate/Rhythm: regular rate and regular rhythm Heart Sounds: normal S1, normal S2 and + murmur (1/6 systolic ejection murmur heard at the base) Vessels: no JVD and no carotid bruit Extremities: no edema Gastrointestinal (Abdomen): Inspection/Auscultation: abdomen normal to inspection and normal bowel sounds; abdomen not distended Neurologic: CN's II-XI intact bilaterally and moves all extremities; no focal motor deficits Results & Data Vital Signs (Past 12 Hours) Vital Signs Temp Pulse Pulse Resp BP Pulse Ox O2 Del Method 03/01/23 09:45 67 03/01/23 07:05 36.6 C 74 19 163/86 H 98 BiPAP 03/01/23 03:29 36.6 C 75 16 149/71 H 98 BiPAP 03/01/23 02:53 67 22 95 02/28/23 23:37 36.7 C 69 16 144/70 H 93 Room Air FiO2 03/01/23 09:45 03/01/23 07:05 03/01/23 03:29 03/01/23 02:53 30 02/28/23 23:37 Laboratory Results Intake and Output 02/28/23 03/01/23 03/01/23 22:59 06:59 14:59 Output Total 500 / 901 Balance - -500 / -90 Output: Urine 500 / 900 # Bowel Movements Other: # Unmeasured Voids 1 Weight 93.4 kg Weight Measurement Method Built in [facility]
--- NOTE | 2023-03-01 12:34 | Hospitalist Progress Note ---
Date of Service March 01, 2023 Assessment & Plan (1) Chest pain: Plan: NSTEMI Initial troponin was 11.3 which went up to 86.8 at the third set and then was trending down Likely has NSTEMI-heparin was initiated which has been discontinued today Appreciate cardiology input and recommendation Echo ordered in a.m.-there is mild concentric LVH, LV wall motion is normal, LV systolic function is normal with EF 60 to 65%, RV is mildly dilated, RV systolic function is normal, significant tricuspid regurgitation is absent Doppler findings do not suggest pulmonary hypertension and there is grade 1 diastolic dysfunction with aortic valve sclerosis mild without significant stenosis . Clinically much better and denies any cardiac symptoms No cardiac symptoms except pauses as below Remains free from any cardiac symptoms Denies any cardiac symptoms Prolonged sinus pauses up to 20 seconds Patient remains weak and lethargic but no other symptoms reported Discussed with the polysomnographer and the patient was transferred to telemetry unit for possible pacemaker insertion Beta-flori is on hold No more pauses-awaiting for possible pacemaker placement Likely pacemaker placement on Friday if noted to have any more pauses otherwise discharged on Friday (2) Abnormal EKG: Plan: Reviewed EKG, concerns for left bundle branch block. Continue telemetry monitoring Continues to have intermittent pauses up to 20 seconds (3) Congestive heart failure: Plan: Continue home meds at this time Mild congestive heart failure likely secondary to diastolic heart failure and may have history of chronic diastolic heart failure No signs or symptoms of fluid overload No shortness of breath (4) MEGAN (obstructive sleep apnea): Plan: Stable Has been put on CPAP at nighttime (5) Diabetes type 2, controlled: Plan: Held home meds at this time Put him on sliding scale and Lantus. (6) Essential hypertension: Plan: Continue valsartan and amlodipine Blood pressure remains on the upper side at 153/103 We will continue current medications and increase hydrochlorothiazide to 25 mg a day Plan DVT prophylaxis Subcu heparin CODE STATUS Patient is a DNR Admission and Anticipated Discharge Date Admission Date: February 25, 2023 Subjective 02/26/2023 The patient was seen and examined in medical telemetry unit He remains stable and complains to have weakness only Denies any chest pain, palpitation or shortness of breath 02/27/2023 The patient was seen and examined in medical telemetry unit He was noted to have long pauses up to 20 seconds repeatedly since last night Remained very weak and lethargic but did not have any other symptoms or situation noted by the nurse This morning he was weak and lethargic but conversing normally and denies any symptoms He was transferred to telemetry unit for continuation of care 02/28/2023 The patient was seen and examined in ICU He has been stable and heart rate remains stable to without any more evidence of pauses Denies any significant symptoms Awaiting cardiology evaluation for possible pacemaker placement 03/01/2023 The patient was seen and examined in telemetry unit He has been stable and denies any significant symptoms His heart rate is a stable and did not have any pauses for the last 48 hours or so Review of Systems Review of Systems: All systems reviewed and are unremarkable except as noted below Physical Exam Physical Exam: Lying in bed comfortably Constitutional: well developed, well nourished and + obese; not ill appearing Eyes: PERRL, conjunctivae normal, anicteric sclerae ENMT: external ear and nose normal, oropharynx normal Neck: trachea midline, no thyromegaly Respiratory: no respiratory distress Auscultation: lungs clear to auscultation bilaterally Cardiovascular: Rate/Rhythm: regular rate and regular rhythm; not tachycardic Heart Sounds: normal S1 and normal S2; no murmur Extremities: + edema (Trace edema bilaterally) Gastrointestinal (Abdomen): Inspection/Auscultation: normal bowel sounds; abdomen not distended Percussion/Palpation: abdomen soft; abdomen nontender Neurologic: normal touch/pain/proprioception and moves all extremities; no focal motor deficits Psychiatric: A+Ox3, euthymic affect Lymphatic: no cervical or axillary lymphadenopathy Results & Data Results & Data Vital Signs (Past 12 Hours) Vital Signs Temp Pulse Pulse Resp BP Pulse Ox O2 Del Method 03/01/23 11:07 36.7 C 82 19 135/62 93 Room Air 03/01/23 09:45 67 03/01/23 07:05 36.6 C 74 19 163/86 H 98 BiPAP 03/01/23 03:29 36.6 C 75 16 149/71 H 98 BiPAP 03/01/23 02:53 67 22 95 FiO2 03/01/23 11:07 03/01/23 09:45 03/01/23 07:05 03/01/23 03:29 03/01/23 02:53 30 Medications Administered Current Inpatient Medications Acetaminophen (Acetaminophen 500 Mg Tab) 1,000 mg PO TID [facility] Stop: 03/26/23 13:59 Last Admin: 03/01/23 08:18 Dose: 1,000 mg Al Hydrox/Mg Hydrox/Simethicone (Aluminum/Magnesium Susp 30 Ml Udc) 15 ml PO Q4H PRN PRN Reason: Dyspepsia Stop: 03/26/23 13:30 Amlodipine Besylate (Amlodipine Besylate 5 Mg Tab) 5 mg PO QAM [facility] Stop: 03/30/23 11:59 Last Admin: 03/01/23 08:14 Dose: 5 mg Ascorbic Acid (Ascorbic Acid 500 Mg Tab) 500 mg PO DAILY [facility] Stop: 03/27/23 08:59 Last Admin: 03/01/23 08:14 Dose: 500 mg Aspirin (Aspirin 81 Mg Ectab) 81 mg PO QAM [facility] Stop: 03/27/23 08:59 Last Admin: 03/01/23 08:15 Dose: 81 mg Atorvastatin Calcium (Atorvastatin 40 Mg Tab) 40 mg PO PM [facility] Stop: 03/27/23 20:59 Last Admin: 02/28/23 19:37 Dose: 40 mg Dextrose (Dextrose 50% 50 Ml Syringe) 25 - 50 ml IV UD PRN; Protocol PRN Reason: Hypoglycemia Protocol Stop: 03/26/23 13:30 Docusate Sodium (Docusate Sodium 100 Mg Cap) 100 mg PO DAILY [facility] Stop: 03/27/23 08:59 Last Admin: 03/01/23 08:18 Dose: 100 mg Famotidine (Famotidine 20 Mg Tab) 20 mg PO BID [facility] Stop: 03/26/23 20:59 Last Admin: 03/01/23 08:14 Dose: 20 mg Glucagon (Glucagon For Inj 1 Mg Vial) 1 mg SQ UD PRN; Protocol PRN Reason: Hypoglycemia Protocol Stop: 03/26/23 13:30 Glucose (Glucose 10 Tab/Tube) 4 - 8 tab PO UD PRN; Protocol PRN Reason: Hypoglycemia Treatment Stop: 03/26/23 13:30 Glucose (Glucose 40% Gel 15 Gm Tube) 15 - 30 gm PO UD PRN; Protocol PRN Reason: Hypoglycemia Protocol Stop: 03/26/23 13:30 Heparin Sodium (Porcine) (Heparin Sod 5,000 Unit/0.5 Ml Vial) 5,000 units SQ Q12 [facility] Stop: 03/28/23 20:59 Last Admin: 03/01/23 08:15 Dose: 5,000 units Hydrochlorothiazide (Hydrochlorothiazide 25 Mg Tab) 12.5 mg PO QAM [facility] Stop: 03/27/23 08:59 Last Admin: 03/01/23 08:14 Dose: 12.5 mg Insulin Aspart (Insulin Aspart Per Unit Charge) 0 units SC ACHS [facility] Stop: 03/29/23 17:59 Last Admin: 03/01/23 12:11 Dose: 2 units Insulin Glargine (Lantus Per Unit Charge) 0 - 10 units SQ BID [facility] Stop: 03/26/23 20:59 Last Admin: 03/01/23 08:08 Dose: Not Given Isosorbide Mononitrate (Isosorbide Nance Extended Rel 60 Mg Tabcr) [facility]: 03/29/23 08:59 Last Admin: 03/01/23 08:14 Dose: 60 mg Miscellaneous (Carbohydrates For Hypoglycemia ) 15 - 30 gm PO UD PRN PRN Reason: Hypoglycemia Protocol Stop: 03/26/23 13:30 Ondansetron HCl (Ondansetron Inj 2 Mg/Ml 2 Ml Vial) 4 mg IV Q6H PRN PRN Reason: Nausea Stop: 03/26/23 13:30 Pantoprazole Sodium (Pantoprazole 40 Mg Tab) [facility] Stop: 03/27/23 08:59 Last Admin: 03/01/23 08:15 Dose: 40 mg Polyethylene Glycol (Polyethylene (Miralax) 17 Gm Pack) 17 gm PO DAILY PRN PRN Reason: Constipation Stop: 03/26/23 13:30 Trazodone HCl (Trazodone Hcl 50 Mg Tab) 50 mg PO HS [facility] Stop: 03/26/23 20:59 Last Admin: 02/28/23 19:36 Dose: 50 mg Valsartan (Valsartan 80 Mg Tab) [facility] Stop: 03/27/23 08:59 Last Admin: 03/01/23 08:14 Dose: 160 mg Vitamin D (Cholecalciferol 400 Units 10 Mcg Tab) 400 units PO QAM [facility] Stop: 03/27/23 08:59 Last Admin: 03/01/23 08:14 Dose: 400 units (1) Chest pain Chest pain type: unspecified Qualified Code(s): R07.9 - Chest pain, unspecified
[2023-03-01] MEDS: ATORVASTATIN 40 MG TAB PO SCH (20:11)
[2023-03-01] MEDS: traZODone HCL 50 MG TAB PO SCH (20:17)
[2023-03-02 07:37] LABS: BUN Creatinine Ratio 34.3 (10-20); Calcium 9.5 mg/dl (8.6-10.3); Creatinine Clr Calc Pharmacy 53.3 ml/min; Est GFR (African American) 71.6 ml/min; Est GFR (Non-African American) 61.8 ml/min
[2023-03-02] MEDS: LANTUS PER UNIT CHARGE SQ SCH (07:53)
[2023-03-02] MEDS: INSULIN ASPART PER UNIT CHARGE SC SCH ×4 (07:53→20:39)
[2023-03-02] MEDS: VALSARTAN 80 MG TAB PO SCH (07:58)
[2023-03-02] MEDS: hydroCHLOROthiazide 25 MG TAB PO SCH (07:58)
[2023-03-02] MEDS: ISOSORBIDE MONO EXTENDED REL 60 MG TABCR PO SCH (07:58)
[2023-03-02] MEDS: PANTOprazole 40 MG TAB PO SCH (07:58)
[2023-03-02] MEDS: ASCORBIC ACID 500 MG TAB PO SCH (07:59)
[2023-03-02] MEDS: ASPIRIN 81 MG ECTAB PO SCH (07:59)
[2023-03-02] MEDS: amLODIPine BESYLATE 5 MG TAB PO SCH (07:59)
[2023-03-02] MEDS: FAMOTIDINE 20 MG TAB PO SCH ×2 (07:59→20:30)
[2023-03-02] MEDS: CHOLECALCIFEROL 400 UNITS 10 MCG TAB PO SCH (07:59)
[2023-03-02] MEDS: HEPARIN SOD 5,000 UNIT/0.5 ML VIAL SQ SCH ×2 (08:00→20:30)
[2023-03-02] MEDS: ACETAMINOPHEN 500 MG TAB PO SCH ×3 (08:02→20:40)
[2023-03-02] MEDS: DOCUSATE SODIUM 100 MG CAP PO SCH (08:02)
--- NOTE | 2023-03-02 08:25 | Cardiology Progress Note ---
Date of Service March 02, 2023 Assessment & Plan (1) NSTEMI (non-ST elevated myocardial infarction): (2) Sinus pause: (3) Hypertension: (4) Ventricular ectopy: Plan 87-year-old patient presenting with chest pain and mildly elevated troponin. Diagnosed with NSTEMI and treated medically. Left ventricular ejection fraction within normal limits, no regional wall motion abnormalities. Beta-flori discontinued secondary to bradycardia and multiple pauses 02/27/2023 ranging from 12-20 seconds. Beta-flori and obstructive sleep apnea likely contributing factors, however, patient admits to noncompliance with CPAP in the outpatient setting. Beta-flori will be an important component of patient's medically managed NSTEMI. Pacemaker implantation in AM. N.p.o. except medications after midnight. Restart beta-flori post pacemaker implantation. Continue valsartan, hydrochlorothiazide, isosorbide monohydrate, aspirin and high intensity statin therapy. Admission and Anticipated Discharge Date Admission Date: February 25, 2023 Subjective Patient seen examined the bedside. Hard of hearing. No complaints today. Telemetry reveals transient bradycardia with pause up to 2.2 seconds. Beta- flori remains on hold. No chest pain or shortness of breath. Review of Systems Review of Systems: All systems reviewed & are unremarkable except as noted in Subjective Physical Exam Constitutional: well nourished; no acute distress Respiratory: no respiratory distress, no labored breathing and no retractions Cardiovascular: Rate/Rhythm: regular rate and regular rhythm Heart Sounds: normal S1, normal S2 and + murmur (1/6 systolic ejection murmur heard at the base) Vessels: no JVD and no carotid bruit Extremities: no edema Gastrointestinal (Abdomen): Inspection/Auscultation: abdomen normal to inspection and normal bowel sounds; abdomen not distended Neurologic: CN's II-XI intact bilaterally and moves all extremities; no focal motor deficits Results & Data Vital Signs (Past 12 Hours) Vital Signs Temp Pulse Pulse Resp BP Pulse Ox O2 Del Method 03/01/23 22:02 63 03/02/23 03:28 36.7 C 87 18 151/77 H 98 BiPAP 03/02/23 03:03 59 L 22 98 03/02/23 00:13 66 12 96 03/02/23 00:09 36.7 C 73 20 152/56 H 94 Room Air FiO2 03/01/23 22:02 08/20/23 03:28 30 03/02/23 03:03 30 03/02/23 00:13 30 03/02/23 00:09 Laboratory Results Comprehensive Metabolic Panel 03/02/23 Range/Units 06:33 Sodium 134 L (136-145) mmol/L Potassium 4.0 (3.5-5.1) mmol/L Chloride 99 (98-107) mmol/L Carbon Dioxide 27 (21-32) mmol/L BUN 37 H (6-23) mg/dl Creatinine 1.08 (0.6-1.4) mg/dl Glucose 141 H (70-99(Fasting)) mg/dl Calcium 9.5 (8.6-10.3) mg/dl Intake and Output 03/01/23 03/02/23 03/02/23 22:59 06:59 14:59 Intake Total 360 / 360 Output Total 125 / 475 350 / 475 Balance 235 / -115 -350 / -115 Intake: Oral 360 / 360 Output: Urine 125 / 475 350 / 475 Other: # Unmeasured Voids 2 Weight 92.7 kg Weight Measurement Method Built in [facility]
--- NOTE | 2023-03-02 12:42 | Hospitalist Progress Note ---
Date of Service March 02, 2023 Assessment & Plan (1) Chest pain: Plan: NSTEMI Initial troponin was 11.3 which went up to 86.8 at the third set and then was trending down Likely has NSTEMI-heparin was initiated which has been discontinued today Appreciate cardiology input and recommendation Echo ordered in a.m.-there is mild concentric LVH, LV wall motion is normal, LV systolic function is normal with EF 60 to 65%, RV is mildly dilated, RV systolic function is normal, significant tricuspid regurgitation is absent Doppler findings do not suggest pulmonary hypertension and there is grade 1 diastolic dysfunction with aortic valve sclerosis mild without significant stenosis . Clinically much better and denies any cardiac symptoms No cardiac symptoms except pauses as below Remains free from any cardiac symptoms Denies any cardiac symptoms Prolonged sinus pauses up to 20 seconds Patient remains weak and lethargic but no other symptoms reported Discussed with the print line operator and the patient was transferred to telemetry unit for possible pacemaker insertion Beta-flori is on hold No more pauses-awaiting for possible pacemaker placement Likely pacemaker placement on Friday if noted to have any more pauses otherwise discharged on Friday Pacemaker placement will be done tomorrow and likely discharge thereafter tomorrow (2) Abnormal EKG: Plan: Reviewed EKG, concerns for left bundle branch block. Continue telemetry monitoring Continues to have intermittent pauses up to 20 seconds (3) Congestive heart failure: Plan: Continue home meds at this time Mild congestive heart failure likely secondary to diastolic heart failure and may have history of chronic diastolic heart failure No signs or symptoms of fluid overload No shortness of breath (4) MEGAN (obstructive sleep apnea): Plan: Stable Has been put on CPAP at nighttime (5) Diabetes type 2, controlled: Plan: Held home meds at this time Put him on sliding scale and Lantus. (6) Essential hypertension: Plan: Continue valsartan and amlodipine Blood pressure remains on the upper side at 153/103 We will continue current medications and increase hydrochlorothiazide to 25 mg a day Blood pressure remains stable Plan DVT prophylaxis Subcu heparin CODE STATUS Patient is a DNR Admission and Anticipated Discharge Date Admission Date: February 25, 2023 Subjective 02/26/2023 The patient was seen and examined in medical telemetry unit He remains stable and complains to have weakness only Denies any chest pain, palpitation or shortness of breath 02/27/2023 The patient was seen and examined in medical telemetry unit He was noted to have long pauses up to 20 seconds repeatedly since last night Remained very weak and lethargic but did not have any other symptoms or situation noted by the nurse This morning he was weak and lethargic but conversing normally and denies any symptoms He was transferred to telemetry unit for continuation of care 02/28/2023 The patient was seen and examined in ICU He has been stable and heart rate remains stable to without any more evidence of pauses Denies any significant symptoms Awaiting cardiology evaluation for possible pacemaker placement 03/01/2023 The patient was seen and examined in telemetry unit He has been stable and denies any significant symptoms His heart rate is a stable and did not have any pauses for the last 48 hours or so 03/02/2023 The patient was seen and examined in telemetry unit He has been stable and denies any significant symptoms No more pauses and heart rate remains around 60s Review of Systems Review of Systems: All systems reviewed and are unremarkable except as noted below Physical Exam Physical Exam: Lying in bed comfortably Constitutional: well developed, well nourished and + obese; not ill appearing Eyes: PERRL, conjunctivae normal, anicteric sclerae ENMT: external ear and nose normal, oropharynx normal Neck: trachea midline, no thyromegaly Respiratory: no respiratory distress Auscultation: lungs clear to auscultation bilaterally Cardiovascular: Rate/Rhythm: regular rate and regular rhythm; not tachycardic Heart Sounds: normal S1 and normal S2; no murmur Extremities: + edema (Trace edema bilaterally) Gastrointestinal (Abdomen): Inspection/Auscultation: normal bowel sounds; abdomen not distended Percussion/Palpation: abdomen soft; abdomen nontender Neurologic: normal touch/pain/proprioception and moves all extremities; no focal motor deficits Psychiatric: A+Ox3, euthymic affect Lymphatic: no cervical or axillary lymphadenopathy Results & Data Results & Data Vital Signs (Past 12 Hours) Vital Signs Temp Pulse Pulse Resp BP Pulse Ox O2 Del Method 03/02/23 11:28 36.7 C 66 18 125/59 L 96 Room Air 03/02/23 03:28 36.7 C 87 18 151/77 H 98 BiPAP 03/02/23 03:03 59 L 22 98 FiO2 03/02/23 11:28 03/02/23 03:28 30 03/02/23 03:03 30 Laboratory Results [facility] 03/02/23 06:33 Sodium 134 L Potassium 4.0 Chloride 99 Carbon Dioxide 27 BUN 37 H Creatinine 1.08 Glucose 141 H Calcium 9.5 (1) Chest pain Chest pain type: unspecified Qualified Code(s): R07.9 - Chest pain, unspecified
[2023-03-02] MEDS: ATORVASTATIN 40 MG TAB PO SCH (20:30)
[2023-03-02] MEDS: traZODone HCL 50 MG TAB PO SCH (20:40)
[2023-03-02] MEDS ORDERED: Nursing to Pharmacy Communication SCH (23:00)
[2023-03-03] MEDS: MELATONIN 3 MG TAB PO PRN ×2 (00:58→20:47)
--- NOTE | 2023-03-03 07:51 | History & Physical Bridge Note ---
Date of Service March 03, 2023 History & Physical Bridge Note I have examined the patient, reviewed the History & Physical and in the interval since the performance of the History & Physical I have noted the following changes of clinical significance: Pt with intermittent long pauses recommended a pacemaker prior to hospital discharge; discussed the procedure and potential risks with the patient he expressed an understanding consents signed
--- NOTE | 2023-03-03 07:51 | Pre Anesthesia Assessment ---
Date of Service March 03, 2023 Pre Sedation Assessment Vital Signs Temp Pulse Pulse Resp BP Pulse Ox O2 Del Method 03/03/23 07:18 37.1 C 72 20 153/88 H 96 Room Air 03/03/23 03:00 36.3 C L 71 18 165/78 H 96 Room Air 03/02/23 23:07 36.6 C 74 16 138/69 95 Room Air 03/02/23 19:00 36.6 C 68 18 135/73 94 Room Air 03/02/23 18:35 75 03/02/23 15:22 36.6 C 57 L 20 137/60 96 Room Air 03/02/23 12:41 62 03/02/23 11:28 36.7 C 66 18 125/59 L 96 Room Air Cardiovascular RRR, no murmur, no edema Respiratory normal respiratory effort, lungs clear to auscultation Pre-Sedation Airway Assessment Smoking Status: Former smoker Hx Sleep Apnea: Yes Short, Thick Neck: No Thyromental Distance: > or= 3.5 Finger Breadths Oral Cavity: + WNL Mallampati Class: III ASA: ASA3 NPO Status Date of Last Intake of Fluids: 03/02/23 Time of Last Intake of Fluids: 11:55 Date of Last Intake of Solid Food: 03/02/23 Time of Last Intake of Solid Foods: 21:00 Procedure Planning Contraindications for Sedation: none Current Medications Reviewed: Yes Notes The planned sedation has been discussed with the patient. Informed Consent was o btained. I have identified the patient, determined the appropriateness of sedation and have assessed the patient immediately prior to the procedure. All medicine(s) and interventions are by my order.
--- NOTE | 2023-03-03 09:12 | Post Anesthesia Assessment ---
Date of Service March 03, 2023 Post Sedation Assessment Vital Signs Temp Pulse Pulse Resp BP Pulse Ox O2 Del Method 03/03/23 07:18 37.1 C 72 20 153/88 H 96 Room Air 03/03/23 03:00 36.3 C L 71 18 165/78 H 96 Room Air 03/02/23 23:07 36.6 C 74 16 138/69 95 Room Air 03/02/23 19:00 36.6 C 68 18 135/73 94 Room Air 03/02/23 18:35 75 03/02/23 15:22 36.6 C 57 L 20 137/60 96 Room Air 03/02/23 12:41 62 03/02/23 11:28 36.7 C 66 18 125/59 L 96 Room Air Recovery Score Activity: Moves 4 extremities Respiration: Deep Breath/Cough Circulation: +/-20% PreAnes Value Consciousness: Fully Awake Oxygen Saturation: > 92% On Room Air Discharge Sedation Level of Care: Fast Track Phase II Post Sedation Plan On clinical assessment, the patient appears to have tolerated the sedation without complications. Patient is recovering as anticipated. Patient will continue to be monitored by nursing and may be discharged when sedation discharge criteria are met per below protocol. Upon Completions of procedure up to 15 minutes continue every 5 minute vital signs and the P.A.R. score; then discharge to a Phase I or Fast Track to Phase II per the following guidelines: * Discharge Patient to appropriate Phase II area if PAR is 8 or greater or return to pre- procedure baseline. The post - procedure orders will be as directed. * If PAR score is less than 8 or not return to pre-procedure baseline then patient will follow Phase I monitoring till PAR is reached for Phase II. The Phase I may be done in procedure room or may call to secure a Phase I area. * If naloxone or flumazenil are used for reversal, hold in Phase I for continued monitoring from when last reversal dose was given for a minimum of 60 minutes or longer pending the nurse and/or physician discretion of patient condition before discharge to Phase II. Please call the Sedation Physician to re-evaluate and complete post-note for discharge to Phase II area. Do NOT discharge from procedure sedation or Phase 1 until post- sedation evaluation note is complete by procedure /sedation MD Sedation Discharge Instructions to be given to the patient at discharge to home.
--- NOTE | 2023-03-03 09:14 | Operative Report ---
Post Operative Report DICTATED BY:Suzanne Boyle D.O. DATE OF PROCEDURE: 03/03/2023. PREOPERATIVE DIAGNOSES: Sinus arrest POSTOPERATIVE DIAGNOSIS: Same PROCEDURE: A dual-chamber rate responsive permanent pacemaker and intracardiac electrogram His bundle recordings, along with a peripheral venogram under fluoroscopic guidance. SURGEON: Suzanne Boyle DO ASSISTANTS: None. ANESTHESIA: Monitored conscious sedation administered under my supervision by Deanna Smith. Start time 8:18, end time 9:09, a total of 4 mg of Versed and 100 mcg of fentanyl. INTRAVENOUS FLUIDS: 88 mL. CONTRAST: 15 mL. ANTIBIOTICS: 2 grams of Ancef. BLOOD LOSS: 40 mL. URINE OUTPUT: Not applicable. SPECIMENS: None. FINDINGS: See below. DRAINS: None. COMPLICATIONS: None. CONDITION: Stable. INDICATIONS: This is a 87-year-old gentleman who has a past medical history for HTN, Hyperlipidemia, DM, Prior CVA/TIA, Ventricular ectopy (PVCs/ NSVT), No known CAD Negative stress in 2020. He was admitted to [facility] due to chest pain and treated for NSTEMI. During his admission he was found to have markedly repeated Sinus pauses up to 20 seconds during sleep. He was recommended a pacemaker prior to discharge. CONSENT: Consent was obtained prior to the patient going into the electrop hysiology lab. The patient was informed of the risks, benefits, and alternatives to the procedure. Risks include, but not limited to, sudden cardiac , cardiac arrhythmias, cerebrovascular accident, myocardial infarction, injury to his blood vessels, chamber of the heart and lung, bleeding and infection. The patient understood these risks and agreed to the procedure as planned. Informed consent was obtained. DESCRIPTION OF PROCEDURE: The patient was brought into electrophysiology lab in a fasting state. He was connected to continuous cardiac monitoring. A timeout was performed to ensure the patient's identity and procedure correctly. He was prepped and draped in the left infraclavicular space in normal surgical standard fashion. Monitored conscious sedation was given throughout the procedure for the patient's comfort level. Owen precautions were maintained throughout the procedure. Prophylactic antibiotics were given prior to incision. A 20 mL of 1% lidocaine and bupivacaine mixture were given in the left deltopectoral groove. An incision was made in the left deltopectoral groove. Blunt dissection was performed down to the pectoralis muscle. Then, using blunt dissection over the pectoralis muscle within the pectoral fascia, a pacemaker pocket was created. Then, a peripheral venogram was performed to identify the axillary vein. Venous axillary access was obtained through a needlestick without any problems. A guidewire was inserted without any resistance. A 7- Croatian sheath was inserted over the guidewire without any resistance. Dilator was removed and a second guidewire was inserted through the sheath to allow for retained venous access. The dilator was flushed and prepped back over a 7 Croatian sheath, then we inserted over one of the guidewires. The guidewire and dilator were removed. Then, the His C315 sheath was inserted through the 7-Croatian sheath over a Glidewire into the right ventricle. The Glidewire and dilator were removed. Then, the left bundle lead was advanced through the His C315 sheath and intracardiac electrogram His bundle recordings were performed when the camera was in FAITH 10. Once I found where the His bundle is, see below for results, I then moved the camera to FAITH 30 and marked where the His bundle was on my fluoroscopy screen. I came down about 2 cm from this in a line that would extend out to the apex and then started coming on pacing. Once I found an area where I had a nice W formed pace complex in my lead V1, I then moved the camera to ARABIC 30 and started giving a series of clockwise turns to screw the lead into the septum pausing once in a while to see how my pacing complex changed. Once I developed a nice R prime, I then gave contrast through the sheath to see how far the lead was into the septum and then I slit the His C315 sheath under fluoroscopic guidance and left the 7-Croatian sheath in while I positioned the right atrial lead. A second 7-Croatian sheath was inserted over the retained guidewire, the guidewire and dilator removed. The right atrial lead was then advanced into right atrium and positioned into right atrial appendage under fluoroscopic guidance. There was adequate pacing and sensing thresholds and no diaphragmatic stimulation with high output pacing. The 7-Croatian sheath was peeled away and the lead was fixated to the pectoralis muscle using 0 silk suture. The 7-Croatian sheath around the left bundle lead was peeled away and the lead was fixated to pectoralis muscle using 0 silk suture. The pocket was flushed with copious amounts of vancomycin and saline wash and inspected for hemostasis. The pulse generator was then placed attached to the leads making sure the pins were in appropriate position, passed set screws, and set screws were all tightened. Pulse generator was then placed in the antibiotic pouch followed then by being placed in the pocket, making sure the leads were lying flat beneath the device. The incision was closed in a 3-layer fashion using 2-0 Vicryl interrupted suture, followed by 3-0 Vicryl interrupted suture, followed by 4-0 Monocryl running stitch. Dermabond was applied followed by primaseal dressing. EQUIPMENT: 1. Pulse generator is a [employer]at[employer]us TV Jada XT DR MARCELINO Fernandez [id number], serial number [id number]. 2. Right atrial lead, Medtronic 5076-52 cm, serial number [id number]. 3. Left bundle lead, Medtronic 3830-69 cm, serial number [id number]. 4. Tyrx pouch Ref [id number]; Lot number [id number] INTRAPROCEDURAL FINDINGS: 1. Intracardiac electrogram His bundle recordings, AH is 71 milliseconds, HV is 54 milliseconds. 2. Right atrial lead, P waves 1.9 millivolts, impedance 757 ohms, threshold 0.8 volts at 0.5 milliseconds. 3. Left bundle lead, R waves 9.5 millivolts, impedance 1015 ohms, threshold 1.1 volts at 0.5 milliseconds. FINAL MEASUREMENTS THROUGH THE DEVICE: 1. Right atrial lead, P waves 2.1 millivolts, impedance 589 ohms, threshold 0.75 volt at 0.4 milliseconds. 2. Left bundle lead, R waves 19.9 millivolts, impedance 722 ohms, threshold 0.5 volts at 0.4 milliseconds. FINAL PARAMETERS: MVP-R 60/120, right atrial amplitude 3.5 volts, pulse width 0.4 milliseconds, sensitivity 0.3 millivolts. Left bundle lead amplitude 3.5 volts, pulse width 0.4 milliseconds, sensitivity 1.2 millivolts. IMPRESSION: Successful dual chamber rate responsive permanent pacemaker under fluoroscopic guidance along with peripheral venogram and intracardiac electrogram His bundle recordings, all under fluoroscopic guidance secondary to sinus pauses. PLAN: Monitor the patient post-procedure. A 12-lead ECG, chest x-ray and recheck the device in a few hours. He is not to lift the left elbow or left shoulder for 1 month. He cannot lift more than 10 pounds with the left arm for 2 weeks. He is to keep the dressing on and dry until his wound check next week.
[2023-03-03] MEDS ORDERED: fentaNYL citrate PF 100 MCG/2 ML VIAL ONE (09:20)
[2023-03-03] MEDS ORDERED: MIDAZOLAM HCL 5 MG/ML 1 ML VIAL ONE (09:21)
[2023-03-03] MEDS: PANTOprazole 40 MG TAB PO SCH (10:05)
[2023-03-03] MEDS: amLODIPine BESYLATE 5 MG TAB PO SCH (10:05)
[2023-03-03] MEDS: FAMOTIDINE 20 MG TAB PO SCH ×2 (10:06→20:47)
[2023-03-03] MEDS: ASPIRIN 81 MG ECTAB PO SCH (10:07)
[2023-03-03] MEDS: hydroCHLOROthiazide 25 MG TAB PO SCH (10:07)
[2023-03-03] MEDS: ASCORBIC ACID 500 MG TAB PO SCH (10:08)
[2023-03-03] MEDS: CHOLECALCIFEROL 400 UNITS 10 MCG TAB PO SCH (10:09)
[2023-03-03] MEDS: ISOSORBIDE MONO EXTENDED REL 60 MG TABCR PO SCH (10:09)
[2023-03-03] MEDS: VALSARTAN 80 MG TAB PO SCH (10:09)
[2023-03-03] MEDS: HEPARIN SOD 5,000 UNIT/0.5 ML VIAL SQ SCH ×2 (10:10→20:48)
[2023-03-03] MEDS: INSULIN ASPART PER UNIT CHARGE SC SCH ×4 (10:24→20:40)
[2023-03-03] MEDS: LANTUS PER UNIT CHARGE SQ SCH ×2 (10:26→20:48)
[2023-03-03] MEDS: ACETAMINOPHEN 500 MG TAB PO SCH ×3 (10:26→20:49)
[2023-03-03] MEDS: DOCUSATE SODIUM 100 MG CAP PO SCH (10:27)
--- NOTE | 2023-03-03 11:33 | XRay Report ---
SINGLE VIEW CHEST CLINICAL HISTORY: Pacemaker implantation. FINDINGS: An AP, portable, upright chest radiograph is compared to study dated 02/24/2023. A 2-lead ca rdiac pacemaker has been implanted and partially obscures the left upper chest. Leads project over th e right atrial appendage and right ventricle. The heart is enlarged noting atherosclerotic calcificat ion of the thoracic aorta. The pulmonary vasculature is noncongested. Chronic interstitial thickening is similar to previous. There is mild bibasilar scarring/atelectasis. The lungs and pleural spaces a re otherwise clear. No pneumothorax is seen. The skeletal structures are osteopenic. The bony thorax is grossly intact. IMPRESSION: 1. A 2-lead cardiac pacemaker has been implanted as above. No pneumothorax is seen post procedure. 2. Cardiomegaly without radiographic evidence of congestive failure. 3. No airspace consolidation or large pleural effusion is identified. ACT 112: Negative or not required by law. Electronically signed by: Tigre Lynne M.D. 03/03/2023 11:31 AM
--- NOTE | 2023-03-03 12:12 | Cardiology Progress Note ---
Date of Service March 03, 2023 Assessment & Plan (1) Sinus pause: (2) NSTEMI (non-ST elevated myocardial infarction): (3) Hypertension: (4) Ventricular ectopy: Plan 87-year-old patient presenting with chest pain and mildly elevated troponin. Diagnosed with NSTEMI and treated medically. Left ventricular ejection fraction within normal limits, no regional wall motion abnormalities. Beta-flori discontinued secondary to bradycardia and multiple pauses 02/27/2023 ranging from 12-20 seconds. Beta-flori and obstructive sleep apnea likely contributing factors, however, patient admits to noncompliance with CPAP in the outpatient setting. Pacemaker implanted today without complication. Recommend addition of beta- flori therapy. Metoprolol tartrate 25 mg twice daily ordered. Continue valsartan, hydrochlorothiazide, isosorbide monohydrate, aspirin and high intensity statin therapy. Admission and Anticipated Discharge Date Admission Date: February 25, 2023 Subjective Patient seen and examined at bedside. Pacemaker implanted earlier today without complication. No pneumothorax per chest x-ray. Denies chest pain or shortness of breath. Sinus rhythm and sinus tachycardia noted on telemetry. No recurrent pauses overnight. Review of Systems Review of Systems: All systems reviewed & are unremarkable except as noted in Subjective Physical Exam Constitutional: well nourished; no acute distress Respiratory: no respiratory distress, no labored breathing and no retractions Cardiovascular: Rate/Rhythm: regular rate and regular rhythm Heart Sounds: normal S1, normal S2 and + murmur (1/6 systolic ejection murmur heard at the base) Vessels: no JVD and no carotid bruit Extremities: no edema Gastrointestinal (Abdomen): Inspection/Auscultation: abdomen normal to insp ection and normal bowel sounds; abdomen not distended Neurologic: CN's II-XI intact bilaterally and moves all extremities; no focal motor deficits Results & Data Vital Signs (Past 12 Hours) Vital Signs Temp Pulse Resp BP BP Pulse Ox O2 Del Method 03/03/23 11:11 36.2 C L 86 18 128/72 96 Room Air 03/03/23 09:59 37 C 95 H 18 169/86 H 94 Room Air 03/03/23 09:30 90 18 144/85 H 92 Room Air 03/03/23 09:15 97 H 18 136/80 93 Room Air 03/03/23 07:18 37.1 C 72 20 153/88 H 96 Room Air 08/21/23 03:00 36.3 C L 71 18 165/78 H 96 Room Air Laboratory Results Intake and Output 03/02/23 03/03/23 03/03/23 22:59 06:59 14:59 Intake Total 820 / 820 Output Total 250 / 1025 475 / 1025 Balance 570 / -205 -475 / -205 Intake: Oral 820 / 820 Output: Urine 250 / 1025 475 / 1025 Other: Weight 93 kg Weight Measurement Method Built in [facility]
[2023-03-03] MEDS: METOPROLOL TARTRATE 25 MG TAB PO SCH ×2 (13:53→20:47)
--- NOTE | 2023-03-03 16:21 | Hospitalist Progress Note ---
Date of Service March 03, 2023 Assessment & Plan (1) Chest pain: Plan: NSTEMI Initial troponin was 11.3 which went up to 86.8 at the third set and then was trending down Likely has NSTEMI-heparin was initiated which has been discontinued today Appreciate cardiology input and recommendation Echo ordered in a.m.-there is mild concentric LVH, LV wall motion is normal, LV systolic function is normal with EF 60 to 65%, RV is mildly dilated, RV systolic function is normal, significant tricuspid regurgitation is absent Doppler findings do not suggest pulmonary hypertension and there is grade 1 diastolic dysfunction with aortic valve sclerosis mild without significant stenosis . Clinically much better and denies any cardiac symptoms No cardiac symptoms except pauses as below Remains free from any cardiac symptoms Denies any cardiac symptoms Prolonged sinus pauses up to 20 seconds Patient remains weak and lethargic but no other symptoms reported Discussed with the manager compensation and the patient was transferred to telemetry unit for possible pacemaker insertion Beta-flori is on hold No more pauses-awaiting for possible pacemaker placement Likely pacemaker placement on Friday if noted to have any more pauses otherwise discharged on Friday Pacemaker placement will be done tomorrow and likely discharge thereafter tomorrow Status post PPM placement Likely discharge tomorrow (2) Abnormal EKG: Plan: Reviewed EKG, concerns for left bundle branch block. Continue telemetry monitoring Continues to have intermittent pauses up to 20 seconds (3) Congestive heart failure: Plan: Continue home meds at this time Mild congestive heart failure likely secondary to diastolic heart failure and may have history of chronic diastolic heart failure No signs or symptoms of fluid overload No shortness of breath No signs and or symptoms of CHF (4) MEGAN (obstructive sleep apnea): Plan: Stable Has been put on CPAP at nighttime (5) Diabetes type 2, controlled: Plan: Held home meds at this time Put him on sliding scale and Lantus. (6) Essential hypertension: Plan: Continue valsartan and amlodipine Blood pressure remains on the upper side at 153/103 We will continue current medications and increase hydrochlorothiazide to 25 mg a day Blood pressure remains stable Plan DVT prophylaxis Subcu heparin CODE STATUS Patient is a DNR Admission and Anticipated Discharge Date Admission Date: February 25, 2023 Subjective 02/26/2023 The patient was seen and examined in medical telemetry unit He remains stable and complains to have weakness only Denies any chest pain, palpitation or shortness of breath 02/27/2023 The patient was seen and examined in medical telemetry unit He was noted to have long pauses up to 20 seconds repeatedly since last night Remained very weak and lethargic but did not have any other symptoms or situation noted by the nurse This morning he was weak and lethargic but conversing normally and denies any symptoms He was transferred to telemetry unit for continuation of care 02/28/2023 The patient was seen and examined in ICU He has been stable and heart rate remains stable to without any more evidence of pauses Denies any significant symptoms Awaiting cardiology evaluation for possible pacemaker placement 03/01/2023 The patient was seen and examined in telemetry unit He has been stable and denies any significant symptoms His heart rate is a stable and did not have any pauses for the last 48 hours or so 03/02/2023 The patient was seen and examined in telemetry unit He has been stable and denies any significant symptoms No more pauses and heart rate remains around 60s 03/03/2023 The patient was seen and examined in telemetry unit He is a status post permanent pacemaker placement Minimal pain at the insertion site but no other symptoms Review of Systems Review of Systems: All systems reviewed and are unremarkable except as noted below Physical Exam Physical Exam: Lying in bed comfortably Constitutional: well developed, well nourished and + obese; not ill appearing Eyes: PERRL, conjunctivae normal, anicteric sclerae ENMT: external ear and nose normal, oropharynx normal Neck: trachea midline, no thyromegaly Respiratory: no respiratory distress Auscultation: lungs clear to auscultation bilaterally Cardiovascular: Rate/Rhythm: regular rate and regular rhythm; not tachycardic Heart Sounds: normal S1 and normal S2; no murmur Extremities: + edema (Trace edema bilaterally) Gastrointestinal (Abdomen): Inspection/Auscultation: normal bowel sounds; abdomen not distended Percussion/Palpation: abdomen soft; abdomen nontender Neurologic: normal touch/pain/proprioception and moves all extremities; no focal motor deficits Psychiatric: A+Ox3, euthymic affect Lymphatic: no cervical or axillary lymphadenopathy Results & Data Results & Data Vital Signs (Past 12 Hours) Vital Signs Temp Pulse Resp BP BP Pulse Ox O2 Del Method 03/03/23 11:11 36.2 C L 86 18 128/72 96 Room Air 03/03/23 09:59 37 C 95 H 18 169/86 H 94 Room Air 03/03/23 09:30 90 18 144/85 H 92 Room Air 03/03/23 09:15 97 H 18 136/80 93 Room Air 03/03/23 07:18 37.1 C 72 20 153/88 H 96 Room Air Medications Administered Current Inpatient Medications Acetaminophen (Acetaminophen 500 Mg Tab) 1,000 mg PO TID [facility] Stop: 03/26/23 13:59 Last Admin: 03/03/23 14:00 Dose: 1,000 mg Al Hydrox/Mg Hydrox/Simethicone (Aluminum/Magnesium Susp 30 Ml Udc) 15 ml PO Q4H PRN PRN Reason: Dyspepsia Stop: 03/26/23 13:30 Amlodipine Besylate (Amlodipine Besylate 5 Mg Tab) 5 mg PO QAM [facility] Stop: 03/30/23 11:59 Last Admin: 03/03/23 10:05 Dose: 5 mg Ascorbic Acid (Ascorbic Acid 500 Mg Tab) 500 mg PO DAILY [facility] Stop: 03/27/23 08:59 Last Admin: 03/03/23 10:08 Dose: 500 mg Aspirin (Aspirin 81 Mg Ectab) 81 mg PO QAM [facility] Stop: 03/27/23 08:59 Last Admin: 03/03/23 10:07 Dose: 81 mg Atorvastatin Calcium (Atorvastatin 40 Mg Tab) 40 mg PO PM [facility] Stop: 03/27/23 20:59 Last Admin: 03/02/23 20:30 Dose: 40 mg Dextrose (Dextrose 50% 50 Ml Syringe) 25 - 50 ml IV UD PRN; Protocol PRN Reason: Hypoglycemia Protocol Stop: 03/26/23 13:30 Docusate Sodium (Docusate Sodium 100 Mg Cap) 100 mg PO DAILY [facility] Stop: 03/27/23 08:59 Last Admin: 03/03/23 10:27 Dose: 100 mg Famotidine (Famotidine 20 Mg Tab) 20 mg PO BID [facility] Stop: 03/26/23 20:59 Last Admin: 03/03/23 10:06 Dose: 20 mg Glucagon (Glucagon For Inj 1 Mg Vial) 1 mg SQ UD PRN; Protocol PRN Reason: Hypoglycemia Protocol Stop: 03/26/23 13:30 Glucose (Glucose 10 Tab/Tube) 4 - 8 tab PO UD PRN; Protocol PRN Reason: Hypoglycemia Treatment Stop: 03/26/23 13:30 Glucose (Glucose 40% Gel 15 Gm Tube) 15 - 30 gm PO UD PRN; Protocol PRN Reason: Hypoglycemia Protocol Stop: 03/26/23 13:30 Heparin Sodium (Porcine) (Heparin Sod 5,000 Unit/0.5 Ml Vial) 5,000 units SQ Q12 [facility] Stop: 03/28/23 20:59 Last Admin: 03/03/23 10:10 Dose: 5,000 units Hydrochlorothiazide (Hydrochlorothiazide 25 Mg Tab) 12.5 mg PO QAM [facility] Stop: 03/27/23 08:59 Last Admin: 03/03/23 10:07 Dose: 12.5 mg Insulin Aspart (Insulin Aspart Per Unit Charge) 0 units SC ACHS [facility] Stop: 03/29/23 17:59 Last Admin: 03/03/23 12:40 Dose: 3 units Insulin Glargine (Lantus Per Unit Charge) 0 - 10 units SQ BID [facility] Stop: 03/26/23 20:59 Last Admin: 03/03/23 10:26 Dose: 5 units Isosorbide Mononitrate (Isosorbide [place] Extended Rel 60 Mg Tabcr) 60 mg PO QAM [facility] Stop: 03/29/23 08:59 Last Admin: 03/03/23 10:09 Dose: 60 mg Melatonin (Melatonin 3 Mg Tab) 3 mg PO HS PRN PRN Reason: Sleep Stop: 04/02/23 00:41 Last Admin: 03/03/23 00:58 Dose: 3 mg Metoprolol Tartrate (Metoprolol Tartrate 25 Mg Tab) 25 mg PO BID [facility] Stop: 04/02/23 12:14 Last Admin: 03/03/23 13:53 Dose: 25 mg Miscellaneous (Carbohydrates For Hypoglycemia ) 15 - 30 gm PO UD PRN PRN Reason: Hypoglycemia Protocol Stop: 03/26/23 13:30 Ondansetron HCl (Ondansetron Inj 2 Mg/Ml 2 Ml Vial) 4 mg IV Q6H PRN PRN Reason: Nausea Stop: 03/26/23 13:30 Pantoprazole Sodium (Pantoprazole 40 Mg Tab) 40 mg PO QAM [facility] Stop: 03/27/23 08:59 Last Admin: 03/03/23 10:05 Dose: 40 mg Polyethylene Glycol (Polyethylene (Miralax) 17 Gm Pack) 17 gm PO DAILY PRN PRN Reason: Constipation Stop: 03/26/23 13:30 Trazodone HCl (Trazodone Hcl 50 Mg Tab) 50 mg PO [facility] Stop: 03/26/23 20:59 Last Admin: 03/02/23 20:40 Dose: 50 mg Valsartan (Valsartan 80 Mg Tab) 160 mg PO QAM [facility] Stop: 03/27/23 08:59 Last Admin: 03/03/23 10:09 Dose: 160 mg Vitamin D (Cholecalciferol 400 Units 10 Mcg Tab) 400 [facility] Stop: 03/27/23 08:59 Last Admin: 03/03/23 10:09 Dose: 400 units (1) Chest pain Chest pain type: unspecified Qualified Code(s): R07.9 - Chest pain, unspecified
[2023-03-03] MEDS: traZODone HCL 50 MG TAB PO SCH (20:47)
[2023-03-03] MEDS: ATORVASTATIN 40 MG TAB PO SCH (20:47)
--- NOTE | 2023-03-04 06:01 | Electrocardiogram Report ---
Test Reason : Blood Pressure : / mmHG Vent. Rate : 091 BPM Atrial Rate : 091 BPM P-R Int : 150 ms QRS Dur : 104 ms QT Int : 352 ms P-R-T Axes : 050 -43 080 degrees QTc Int : 432 ms Sinus rhythm with occasional Premature ventricular complexes Left axis deviation Minimal voltage criteria for LVH, may be normal variant Septal infarct (cited on or before 24-FEB-2023) Possible Lateral infarct (cited on or before 27-FEB-2023) Abnormal ECG When compared with ECG of 27-FEB-2023 10:41, No significant change was found Confirmed by Adama Chance [id number]) on 03/04/2023 6:01:06 AM Referred By: [facility] Confirmed By:Adama Chance
[2023-03-04 07:28] LABS: Basophils # (auto) 0.04 K/uL (0-0.2); Basophils % (auto) 0.4 %; Eosinophils # (auto) 0.24 K/uL (0-0.50); Eosinophils % (auto) 2.5 %; Hematocrit (blood only) 36.5 % (42.0-52.0); Immature Granulocytes # (auto) 0.05 K/uL (0.01-0.20); Immature Granulocytes % (auto) 0.5 %; Lymphocytes # (auto) 1.06 K/uL (1.2-3.4); Lymphocytes % (auto) 11.2 %; Mean Corpuscular Hemoglobin 30.8 pg (25.0-34.0); Mean Corpuscular Hgb Conc 32.9 g/dL (32.0-36.0); Mean Corpuscular Volume 93.6 fL (80.0-100.0); Mean Platelet Volume 10.1 fL (9.4-12.4); Monocytes # (auto) 0.98 K/uL (0.11-0.59); Monocytes % (auto) 10.4 %; Neutrophils # (auto) 7.07 K/uL (1.40-6.50); Platelet Count 323 K/uL (130-400); RDW Coefficient of Variation 14.4 % (11.5-14.5); RDW Standard Deviation 48.7 fL (36.4-46.3); White Blood Count 9.44 K/ul (4.8-10.8)
[2023-03-04 07:48] LABS: BUN Creatinine Ratio 33.9 (10-20); Calcium 9.4 mg/dl (8.6-10.3); Creatinine Clr Calc Pharmacy 47.6 ml/min; Est GFR (African American) 62.5 ml/min; Est GFR (Non-African American) 53.9 ml/min; Magnesium 2.2 mg/dl (1.7-2.4); Potassium 4.2 mmol/L (3.5-5.1)
[2023-03-04] MEDS: INSULIN ASPART PER UNIT CHARGE SC SCH ×4 (08:53→21:03)
[2023-03-04] MEDS: LANTUS PER UNIT CHARGE SQ SCH ×2 (08:53→21:04)
[2023-03-04] MEDS: FAMOTIDINE 20 MG TAB PO SCH ×2 (08:56→21:02)
[2023-03-04] MEDS: hydroCHLOROthiazide 25 MG TAB PO SCH (08:57)
[2023-03-04] MEDS: PANTOprazole 40 MG TAB PO SCH (08:57)
[2023-03-04] MEDS: METOPROLOL TARTRATE 25 MG TAB PO SCH ×2 (08:57→21:02)
[2023-03-04] MEDS: CHOLECALCIFEROL 400 UNITS 10 MCG TAB PO SCH (08:58)
[2023-03-04] MEDS: ISOSORBIDE MONO EXTENDED REL 60 MG TABCR PO SCH (08:58)
[2023-03-04] MEDS: amLODIPine BESYLATE 5 MG TAB PO SCH (08:59)
[2023-03-04] MEDS: VALSARTAN 80 MG TAB PO SCH (08:59)
[2023-03-04] MEDS: ASCORBIC ACID 500 MG TAB PO SCH (09:00)
[2023-03-04] MEDS: ASPIRIN 81 MG ECTAB PO SCH (09:00)
[2023-03-04] MEDS: HEPARIN SOD 5,000 UNIT/0.5 ML VIAL SQ SCH ×2 (09:00→21:02)
[2023-03-04] MEDS: ACETAMINOPHEN 500 MG TAB PO SCH ×3 (09:02→21:03)
[2023-03-04] MEDS: DOCUSATE SODIUM 100 MG CAP PO SCH (09:04)
--- NOTE | 2023-03-04 11:16 | Cardiology Progress Note ---
Date of Service March 04, 2023 Assessment & Plan (1) Sinus pause: (2) NSTEMI (non-ST elevated myocardial infarction): (3) Hypertension: (4) Ventricular ectopy: Plan 87-year-old patient presenting with chest pain and mildly elevated troponin. Diagnosed with NSTEMI and treated medically. Left ventricular ejection fraction within normal limits, no regional wall motion abnormalities. Multiple sinus pauses 02/27/2023 ranging from 12-20 seconds. Pacemaker implanted 03/03/2023 w ithout complication. Beta-flori restarted yesterday. Encourage compliance with CPAP. Pacemaker wound check in 1 week. No further inpatient cardiac testing or intervention recommended at this time. Continue valsartan, hydrochlorothiazide, isosorbide monohydrate, aspirin and high intensity statin therapy. Admission and Anticipated Discharge Date Admission Date: February 25, 2023 Subjective Patient seen examined the bedside. Denies chest pain or shortness of breath. Telemetry reveals sinus rhythm with occasional atrial pacing. No orthopnea, PND, or lower extremity edema. Working with physical therapy. Beta-flori added yesterday. Review of Systems Review of Systems: All systems reviewed & are unremarkable except as noted in Subjective Physical Exam Constitutional: well nourished; no acute distress Respiratory: no respiratory distress, no labored breathing and no retractions Cardiovascular: Rate/Rhythm: regular rate and regular rhythm Heart Sounds: normal S1, normal S2 and + murmur (1/6 systolic ejection murmur heard at the base) Vessels: no JVD and no carotid bruit Extremities: no edema Gastrointestinal (Abdomen): Inspection/Auscultation: abdomen normal to inspection and normal bowel sounds; abdomen not distended Neurologic: CN's II-XI intact bilaterally and moves all extremities; no focal motor deficits Results & Data Vital Signs (Past 12 Hours) Vital Signs Temp Pulse Pulse Resp BP Pulse Ox O2 Del Method 03/04/23 07:24 36.7 C 64 18 134/73 94 Room Air 03/04/23 07:37 63 03/04/23 04:19 36.4 C L 66 19 149/60 H 99 BiPAP 03/04/23 02:35 69 14 97 03/04/23 00:16 36.8 C 60 20 131/66 99 BiPAP FiO2 03/04/23 07:24 03/04/23 07:37 03/04/23 04:19 30 08/22/23 02:35 30 03/04/23 00:16 30 Laboratory Results CBC 03/04/23 Range/Units 06:09 WBC 9.44 (4.8-10.8) K/ul RBC 3.90 L (4.70-6.10) M/uL Hgb 12.0 L (14.0-18.0) g/dl Hct 36.5 L (42.0-52.0) % Plt Count 323 (130-400) K/uL Neut # (Auto) 7.07 H (1.40-6.50) K/uL Lymph # (Auto) 1.06 L (1.2-3.4) K/uL [place] # (Auto) 0.98 H (0.11-0.59) K/uL Eos # (Auto) 0.24 (0-0.50) K/uL Baso # (Auto) 0.04 (0-0.2) K/uL Comprehensive Metabolic Panel 03/04/23 Range/Units 06:09 Sodium 135 L (136-145) mmol/L Potassium 4.2 (3.5-5.1) mmol/L Chloride 101 (98-107) mmol/L Carbon Dioxide 28 (21-32) mmol/L BUN 41 H (6-23) mg/dl Creatinine 1.21 (0.6-1.4) mg/dl Glucose 136 H (70-99(Fasting)) mg/dl Calcium 9.4 (8.6-10.3) mg/dl Intake and Output 03/03/23 03/04/23 03/04/23 22:59 06:59 14:59 Intake Total 490 / 490 Output Total 950 / 1150 Balance 490 / -660 -950 / -660 Intake: Oral 490 / 490 Output: Urine Amount (Catheter) 950 / 950 External 950 / 950 Other: Weight 92.8 kg Weight Measurement Method Built in [facility]
--- NOTE | 2023-03-04 12:29 | Hospitalist Progress Note ---
Date of Service March 04, 2023 Assessment & Plan (1) Chest pain: Plan: NSTEMI Initial troponin was 11.3 which went up to 86.8 at the third set and then was trending down Likely has NSTEMI-heparin was initiated which has been discontinued today Appreciate cardiology input and recommendation Echo ordered in a.m.-there is mild concentric LVH, LV wall motion is normal, LV systolic function is normal with EF 60 to 65%, RV is mildly dilated, RV systolic function is normal, significant tricuspid regurgitation is absent Doppler findings do not suggest pulmonary hypertension and there is grade 1 diastolic dysfunction with aortic valve sclerosis mild without significant stenosis . Clinically much better and denies any cardiac symptoms No cardiac symptoms except pauses as below Remains free from any cardiac symptoms Denies any cardiac symptoms-occasional pain at the surgery site Prolonged sinus pauses up to 20 seconds Patient remains weak and lethargic but no other symptoms reported Discussed with the industrial illuminating engineer and the patient was transferred to telemetry unit for possible pacemaker insertion Beta-flori is on hold No more pauses-awaiting for possible pacemaker placement Likely pacemaker placement on Friday if noted to have any more pauses otherwise discharged on Friday Pacemaker placement will be done tomorrow and likely discharge thereafter tomorrow Status post PPM placement on 03/02/2023 and he has been doing much better since then No more pauses and remains stable For discharge this afternoon (2) Abnormal EKG: Plan: Reviewed EKG, concerns for left bundle branch block. Continue telemetry monitoring Continues to have intermittent pauses up to 20 seconds (3) Congestive heart failure: Plan: Continue home meds at this time Mild congestive heart failure likely secondary to diastolic heart failure and may have history of chronic diastolic heart failure No signs or symptoms of fluid overload No shortness of breath No signs and or symptoms of CHF Volume status is NEUROLOGICAL: Alert, oriented, and cooperative. Cranial nerves, sensation and strength grossly intact. Pupils round, equal, and react to light, EOMs are full. (4) MEGAN (obstructive sleep apnea): Plan: Stable Has been put on CPAP at nighttime (5) Diabetes type 2, controlled: Plan: Held home meds at this time Put him on sliding scale and Lantus. Blood sugar remains stable (6) Essential hypertension: Plan: Continue valsartan and amlodipine Blood pressure remains on the upper side at 153/103 We will continue current medications and increase hydrochlorothiazide to 25 mg a day Blood pressure remains stable No change in his blood pressure medications Plan DVT prophylaxis Subcu heparin CODE STATUS Patient is a DNR Will be discharged this afternoon Admission and Anticipated Discharge Date Admission Date: February 25, 2023 Subjective 02/26/2023 The patient was seen and examined in medical telemetry unit He remains stable and complains to have weakness only Denies any chest pain, palpitation or shortness of breath 02/27/2023 The patient was seen and examined in medical telemetry unit He was noted to have long pauses up to 20 seconds repeatedly since last night Remained very weak and lethargic but did not have any other symptoms or situation noted by the nurse This morning he was weak and lethargic but conversing normally and denies any symptoms He was transferred to telemetry unit for continuation of care 02/28/2023 The patient was seen and examined in ICU He has been stable and heart rate remains stable to without any more evidence of pauses Denies any significant symptoms Awaiting cardiology evaluation for possible pacemaker placement 03/01/2023 The patient was seen and examined in telemetry unit He has been stable and denies any significant symptoms His heart rate is a stable and did not have any pauses for the last 48 hours or so 03/02/2023 The patient was seen and examined in telemetry unit He has been stable and denies any significant symptoms No more pauses and heart rate remains around 60s 03/03/2023 The patient was seen and examined in telemetry unit He is a status post permanent pacemaker placement Minimal pain at the insertion site but no other symptoms 03/04/2023 The patient was seen and examined in telemetry unit Status post PPM placement yesterday and doing fine He has been stable and will be discharged this afternoon Review of Systems Review of Systems: All systems reviewed and are unremarkable except as noted below Physical Exam Physical Exam: Lying in bed comfortably Constitutional: well developed, well nourished and + obese; not ill appearing Eyes: PERRL, conjunctivae normal, anicteric sclerae ENMT: external ear and nose normal, oropharynx normal Neck: trachea midline, no thyromegaly Respiratory: no respiratory distress Auscultation: lungs clear to auscultation bilaterally Cardiovascular: Rate/Rhythm: regular rate and regular rhythm; not tachycardic Heart Sounds: normal S1 and normal S2; no murmur Extremities: + edema (Trace edema bilaterally) Gastrointestinal (Abdomen): Inspection/Auscultation: normal bowel sounds; abdomen not distended Percussion/Palpation: abdomen soft; abdomen nontender Neurologic: normal touch/pain/proprioception and moves all extremities; no focal motor deficits Psychiatric: A+Ox3, euthymic affect Lymphatic: no cervical or axillary lymphadenopathy Results & Data Results & Data Vital Signs (Past 12 Hours) Vital Signs Temp Pulse Pulse Resp BP Pulse Ox O2 Del Method 03/04/23 11:05 36.6 C 62 18 108/65 92 Room Air 03/04/23 07:24 36.7 C 64 18 134/73 94 Room Air 03/04/23 07:37 63 03/04/23 04:19 36.4 C L 66 19 149/60 H 99 BiPAP 03/04/23 02:35 69 14 97 FiO2 03/04/23 11:05 03/04/23 07:24 03/04/23 07:37 03/04/23 04:19 30 03/04/23 02:35 30 Laboratory Results Short CBC 03/04/23 Range/Units 06:09 WBC 9.44 (4.8-10.8) K/ul Hgb 12.0 L (14.0-18.0) g/dl Hct 36.5 L (42.0-52.0) % Plt Count 323 (130-400) K/uL BMP 03/04/23 06:09 Sodium 135 L Potassium 4.2 Chloride 101 Carbon Dioxide 28 BUN 41 H Creatinine 1.21 Glucose 136 H Calcium 9.4 Medications Administered Current Inpatient Medications Acetaminophen (Acetaminophen 500 Mg Tab) 1,000 mg PO TID [facility] Stop: 03/26/23 13:59 Last Admin: 03/04/23 09:02 Dose: 1,000 mg Al Hydrox/Mg Hydrox/Simethicone (Aluminum/Magnesium Susp 30 Ml Udc) 15 ml PO Q4H PRN PRN Reason: Dyspepsia Stop: 03/26/23 13:30 Amlodipine Besylate (Amlodipine Besylate 5 Mg Tab) 5 mg PO QAM [facility] Stop: 03/30/23 11:59 Last Admin: 03/04/23 08:59 Dose: 5 mg Ascorbic Acid (Ascorbic Acid 500 Mg Tab) 500 mg PO DAILY [facility] Stop: 03/27/23 08:59 Last Admin: 03/04/23 09:00 Dose: 500 mg Aspirin (Aspirin 81 Mg Ectab) 81 mg PO QAM [facility] Stop: 03/27/23 08:59 Last Admin: 03/04/23 09:00 Dose: 81 mg Atorvastatin Calcium (Atorvastatin 40 Mg Tab) 40 mg PO PM [facility] Stop: 03/27/23 20:59 Last Admin: 03/03/23 20:47 Dose: 40 mg Dextrose (Dextrose 50% 50 Ml Syringe) 25 - 50 ml IV UD PRN; Protocol PRN Reason: Hypoglycemia Protocol Stop: 03/26/23 13:30 Docusate Sodium (Docusate Sodium 100 Mg Cap) 100 mg PO DAILY [facility] Stop: 03/27/23 08:59 Last Admin: 03/04/23 09:04 Dose: 100 mg Famotidine (Famotidine 20 Mg Tab) 20 mg PO BID [facility] Stop: 03/26/23 20:59 Last Admin: 03/04/23 08:56 Dose: 20 mg Glucagon (Glucagon For Inj 1 Mg Vial) 1 mg SQ UD PRN; Protocol PRN Reason: Hypoglycemia Protocol Stop: 03/26/23 13:30 Glucose (Glucose 10 Tab/Tube) 4 - 8 tab PO UD PRN; Protocol PRN Reason: Hypoglycemia Treatment Stop: 03/26/23 13:30 Glucose (Glucose 40% Gel 15 Gm Tube) 15 - 30 gm PO UD PRN; Protocol PRN Reason: Hypoglycemia Protocol Stop: 03/26/23 13:30 Heparin Sodium (Porcine) (Heparin Sod 5,000 Unit/0.5 Ml Vial) 5,000 units SQ Q12 [facility] Stop: 03/28/23 20:59 Last Admin: 03/04/23 09:00 Dose: 5,000 units Hydrochlorothiazide (Hydrochlorothiazide 25 Mg Tab) 12.5 mg PO QAM [facility] Stop: 03/27/23 08:59 Last Admin: 03/04/23 08:57 Dose: 12.5 mg Insulin Aspart (Insulin Aspart Per Unit Charge) 0 units SC ACHS [facility] Stop: 03/29/23 17:59 Last Admin: 03/04/23 08:53 Dose: 5 units Insulin Glargine (Lantus Per Unit Charge) 0 - 10 units SQ BID [facility] Stop: 03/26/23 20:59 Last Admin: 03/04/23 08:53 Dose: 5 units Isosorbide Mononitrate (Isosorbide [place] Extended Rel 60 Mg Tabcr) 60 mg PO QAM [facility] Stop: 03/29/23 08:59 Last Admin: 03/04/23 08:58 Dose: 60 mg Melatonin (Melatonin 3 Mg Tab) 3 mg PO HS PRN PRN Reason: Sleep Stop: 04/02/23 00:41 Last Admin: 03/03/23 20:47 Dose: 3 mg Metoprolol Tartrate (Metoprolol Tartrate 25 Mg Tab) 25 mg PO BID [facility] Stop: 04/02/23 12:14 Last Admin: 03/04/23 08:57 Dose: 25 mg Miscellaneous (Carbohydrates For Hypoglycemia ) 15 - 30 gm PO UD PRN PRN Reason: Hypoglycemia Protocol Stop: 03/26/23 13:30 Ondansetron HCl (Ondansetron Inj 2 Mg/Ml 2 Ml Vial) 4 mg IV Q6H PRN PRN Reason: Nausea Stop: 03/26/23 13:30 Pantoprazole Sodium (Pantoprazole 40 Mg Tab) [facility] [place]: 03/27/23 08:59 Last Admin: 03/04/23 08:57 Dose: 40 mg Polyethylene Glycol (Polyethylene (Miralax) 17 Gm Pack) 17 gm PO DAILY PRN PRN Reason: Constipation Stop: 03/26/23 13:30 Trazodone HCl (Trazodone Hcl 50 Mg Tab) 50 mg PO HS [facility] Stop: 03/26/23 20:59 Last Admin: 03/03/23 20:47 Dose: 50 mg Valsartan (Valsartan 80 Mg Tab) [facility] Stop: 03/27/23 08:59 Last Admin: 03/04/23 08:59 Dose: 160 mg Vitamin D (Cholecalciferol 400 Units 10 Mcg Tab) 400 units PO QAM [facility] Stop: 03/27/23 08:59 Last Admin: 03/04/23 08:58 Dose: 400 units (1) Chest pain Chest pain type: unspecified Qualified Code(s): R07.9 - Chest pain, unspecified
[2023-03-04] MEDS: ATORVASTATIN 40 MG TAB PO SCH (21:02)
[2023-03-04] MEDS: MELATONIN 3 MG TAB PO PRN (21:02)
[2023-03-04] MEDS: traZODone HCL 50 MG TAB PO SCH (21:07)
[2023-03-05] MEDS: INSULIN ASPART PER UNIT CHARGE SC SCH ×4 (08:33→20:23)
[2023-03-05] MEDS: FAMOTIDINE 20 MG TAB PO SCH ×2 (08:34→20:10)
[2023-03-05] MEDS: ISOSORBIDE MONO EXTENDED REL 60 MG TABCR PO SCH (08:34)
[2023-03-05] MEDS: hydroCHLOROthiazide 25 MG TAB PO SCH (08:34)
[2023-03-05] MEDS: LANTUS PER UNIT CHARGE SQ SCH ×2 (08:34→20:29)
[2023-03-05] MEDS: ASCORBIC ACID 500 MG TAB PO SCH (08:34)
[2023-03-05] MEDS: CHOLECALCIFEROL 400 UNITS 10 MCG TAB PO SCH (08:34)
[2023-03-05] MEDS: VALSARTAN 80 MG TAB PO SCH (08:35)
[2023-03-05] MEDS: PANTOprazole 40 MG TAB PO SCH (08:35)
[2023-03-05] MEDS: amLODIPine BESYLATE 5 MG TAB PO SCH (08:35)
[2023-03-05] MEDS: METOPROLOL TARTRATE 25 MG TAB PO SCH ×2 (08:35→20:10)
[2023-03-05] MEDS: HEPARIN SOD 5,000 UNIT/0.5 ML VIAL SQ SCH ×2 (08:35→20:11)
[2023-03-05] MEDS: ASPIRIN 81 MG ECTAB PO SCH (08:35)
[2023-03-05] MEDS: DOCUSATE SODIUM 100 MG CAP PO SCH (08:37)
[2023-03-05] MEDS: ACETAMINOPHEN 500 MG TAB PO SCH ×3 (08:37→20:20)
--- NOTE | 2023-03-05 13:45 | Hospitalist Progress Note ---
Date of Service March 05, 2023 Assessment & Plan (1) Chest pain: Plan: NSTEMI Initial troponin was 11.3 which went up to 86.8 at the third set and then was trending down Likely has NSTEMI-heparin was initiated which has been discontinued today Appreciate cardiology input and recommendation Echo ordered in a.m.-there is mild concentric LVH, LV wall motion is normal, LV systolic function is normal with EF 60 to 65%, RV is mildly dilated, RV systolic function is normal, significant tricuspid regurgitation is absent Doppler findings do not suggest pulmonary hypertension and there is grade 1 diastolic dysfunction with aortic valve sclerosis mild without significant stenosis . Clinically much better and denies any cardiac symptoms No cardiac symptoms except pauses as below Remains free from any cardiac symptoms Awaiting placement No cardiac symptoms Prolonged sinus pauses up to 20 seconds Patient remains weak and lethargic but no other symptoms reported Discussed with the manager rental and the patient was transferred to telemetry unit for possible pacemaker insertion Beta-flori is on hold No more pauses-awaiting for possible pacemaker placement Likely pacemaker placement on Friday if noted to have any more pauses otherwise discharged on Friday Pacemaker placement will be done tomorrow and likely discharge thereafter tomorrow Status post PPM placement on 03/02/2023 and he has been doing much better since then No more pauses and remains stable No arrhythmias (2) Abnormal EKG: Plan: Reviewed EKG, concerns for left bundle branch block. Continue telemetry monitoring Continues to have intermittent pauses up to 20 seconds (3) Congestive heart failure: Plan: Continue home meds at this time Mild congestive heart failure likely secondary to diastolic heart failure and may have history of chronic diastolic heart failure No signs or symptoms of fluid overload No shortness of breath No signs and or symptoms of CHF Volume status is normal (4) MEGAN (obstructive sleep apnea): Plan: Stable Has been put on CPAP at nighttime (5) Diabetes type 2, controlled: Plan: Held home meds at this time Put him on sliding scale and Lantus. Blood sugar remains stable (6) Essential hypertension: Plan: Continue valsartan and amlodipine Blood pressure remains on the upper side at 153/103 We will continue current medications and increase hydrochlorothiazide to 25 mg a day Blood pressure remains stable No change in his blood pressure medications Plan DVT prophylaxis Subcu heparin CODE STATUS Patient is a DNR Ready to be discharged whenever there is a bed available Admission and Anticipated Discharge Date Admission Date: February 25, 2023 Subjective 02/26/2023 The patient was seen and examined in medical telemetry unit He remains stable and complains to have weakness only Denies any chest pain, palpitation or shortness of breath 02/27/2023 The patient was seen and examined in medical telemetry unit He was noted to have long pauses up to 20 seconds repeatedly since last night Remained very weak and lethargic but did not have any other symptoms or situation noted by the nurse This morning he was weak and lethargic but conversing normally and denies any symptoms He was transferred to telemetry unit for continuation of care 02/28/2023 The patient was seen and examined in ICU He has been stable and heart rate remains stable to without any more evidence of pauses Denies any significant symptoms Awaiting cardiology evaluation for possible pacemaker placement 03/01/2023 The patient was seen and examined in telemetry unit He has been stable and denies any significant symptoms His heart rate is a stable and did not have any pauses for the last 48 hours or so 03/02/2023 The patient was seen and examined in telemetry unit He has been stable and denies any significant symptoms No more pauses and heart rate remains around 60s 03/03/2023 The patient was seen and examined in telemetry unit He is a status post permanent pacemaker placement Minimal pain at the insertion site but no other symptoms 03/04/2023 The patient was seen and examined in telemetry unit Status post PPM placement yesterday and doing fine He has been stable and will be discharged this afternoon 03/05/2023 The patient was seen and examined in telemetry unit He has been stable and awaiting placement Denies any symptoms following PPM placement Review of Systems Review of Systems: All systems reviewed and are unremarkable except as noted below Physical Exam Physical Exam: Lying in bed comfortably Constitutional: well developed, well nourished and + obese; not ill appearing Eyes: PERRL, conjunctivae normal, anicteric sclerae ENMT: external ear and nose normal, oropharynx normal Neck: trachea midline, no thyromegaly Respiratory: no respiratory distress Auscultation: lungs clear to auscultation bilaterally Cardiovascular: Rate/Rhythm: regular rate and regular rhythm; not tachycardic Heart Sounds: normal S1 and normal S2; no murmur Extremities: + edema (Trace edema bilaterally) Gastrointestinal (Abdomen): Inspection/Auscultation: normal bowel sounds; abdomen not distended Percussion/Palpation: abdomen soft; abdomen nontender Neurologic: normal touch/pain/proprioception and moves all extremities; no focal motor deficits Psychiatric: A+Ox3, euthymic affect Lymphatic: no cervical or axillary lymphadenopathy Results & Data Results & Data Vital Signs (Past 12 Hours) Vital Signs Temp Pulse Pulse Resp BP Pulse Ox O2 Del Method 03/05/23 12:11 36.5 C 60 19 112/58 L 97 Room Air 03/05/23 08:00 60 03/05/23 08:00 Room Air 03/05/23 08:15 36.8 C 61 18 129/59 L 94 Room Air 03/05/23 03:00 36.4 C L 60 18 145/76 H 100 CPAP 03/05/23 02:10 62 13 93 FiO2 03/05/23 12:11 03/05/23 08:00 03/05/23 08:00 03/05/23 08:15 03/05/23 03:00 03/05/23 02:10 30 Medications Administered Current Inpatient Medications Acetaminophen (Acetaminophen 500 Mg Tab) 1,000 mg PO TID [facility] Stop: 03/26/23 13:59 Last Admin: 03/05/23 08:37 Dose: 1,000 mg Al Hydrox/Mg Hydrox/Simethicone (Aluminum/Magnesium Susp 30 Ml Udc) 15 ml PO Q4H PRN PRN Reason: Dyspepsia Stop: 03/26/23 13:30 Amlodipine Besylate (Amlodipine Besylate 5 Mg Tab) 5 mg PO QAM [facility] Stop: 03/30/23 11:59 Last Admin: 03/05/23 08:35 Dose: 5 mg Ascorbic Acid (Ascorbic Acid 500 Mg Tab) 500 mg PO DAILY [facility] Stop: 03/27/23 08:59 Last Admin: 03/05/23 08:34 Dose: 500 mg Aspirin (Aspirin 81 Mg Ectab) 81 mg PO QAM [facility] Stop: 03/27/23 08:59 Last Admin: 03/05/23 08:35 Dose: 81 mg Atorvastatin Calcium (Atorvastatin 40 Mg Tab) 40 mg PO PM [facility] Stop: 03/27/23 20:59 Last Admin: 03/04/23 21:02 Dose: 40 mg Dextrose (Dextrose 50% 50 Ml Syringe) 25 - 50 ml IV UD PRN; Protocol PRN Reason: Hypoglycemia Protocol Stop: 03/26/23 13:30 Docusate Sodium (Docusate Sodium 100 Mg Cap) 100 mg PO DAILY [facility] Stop: 03/27/23 08:59 Last Admin: 03/05/23 08:37 Dose: 100 mg Famotidine (Famotidine 20 Mg Tab) 20 mg PO BID [facility] Stop: 03/26/23 20:59 Last Admin: 03/05/23 08:34 Dose: 20 mg Glucagon (Glucagon For Inj 1 Mg Vial) 1 mg SQ UD PRN; Protocol PRN Reason: Hypoglycemia Protocol Stop: 03/26/23 13:30 Glucose (Glucose 10 Tab/Tube) 4 - 8 tab PO UD PRN; Protocol PRN Reason: Hypoglycemia Treatment Stop: 03/26/23 13:30 Glucose (Glucose 40% Gel 15 Gm Tube) 15 - 30 gm PO UD PRN; Protocol PRN Reason: Hypoglycemia Protocol Stop: 03/26/23 13:30 Heparin Sodium (Porcine) (Heparin Sod 5,000 Unit/0.5 Ml Vial) 5,000 units SQ Q12 [facility] Stop: 03/28/23 20:59 Last Admin: 03/05/23 08:35 Dose: 5,000 units Hydrochlorothiazide (Hydrochlorothiazide 25 Mg Tab) 12.5 mg PO QAM [facility] Stop: 03/27/23 08:59 Last Admin: 03/05/23 08:34 Dose: 12.5 mg Insulin Aspart (Insulin Aspart Per Unit Charge) 0 units SC ACHS [facility] Stop: 03/29/23 17:59 Last Admin: 03/05/23 12:22 Dose: 4 units Insulin Glargine (Lantus Per Unit Charge) 0 - 10 units SQ BID [facility] Stop: 03/26/23 20:59 Last Admin: 03/05/23 08:34 Dose: 5 units Isosorbide Mononitrate (Isosorbide [place] Extended Rel 60 Mg Tabcr) 60 mg PO QAM [facility] Stop: 03/29/23 08:59 Last Admin: 03/05/23 08:34 Dose: 60 mg Melatonin (Melatonin 3 Mg Tab) 3 mg PO HS PRN PRN Reason: Sleep Stop: 04/02/23 00:41 Last Admin: 03/04/23 21:02 Dose: 3 mg Metoprolol Tartrate (Metoprolol Tartrate 25 Mg Tab) 25 mg PO BID [facility] Stop: 04/02/23 12:14 Last Admin: 03/05/23 08:35 Dose: 25 mg Miscellaneous (Carbohydrates For Hypoglycemia ) 15 - 30 gm PO UD PRN PRN Reason: Hypoglycemia Protocol Stop: 03/26/23 13:30 Ondansetron HCl (Ondansetron Inj 2 Mg/Ml 2 Ml Vial) 4 mg IV Q6H PRN PRN Reason: Nausea Stop: 03/26/23 13:30 Pantoprazole Sodium (Pantoprazole 40 Mg Tab) 40 mg PO QAM [facility] Stop: 03/27/23 08:59 Last Admin: 03/05/23 08:35 Dose: 40 mg Polyethylene Glycol (Polyethylene (Miralax) 17 Gm Pack) 17 gm PO DAILY PRN PRN Reason: Constipation Stop: 03/26/23 13:30 Trazodone HCl (Trazodone Hcl 50 Mg Tab) 50 mg PO [facility] Stop: 03/26/23 20:59 Last Admin: 03/04/23 21:07 Dose: 50 mg Valsartan (Valsartan 80 Mg Tab) [facility] [place]: 03/27/23 08:59 Last Admin: 03/05/23 08:35 Dose: 160 mg Vitamin D (Cholecalciferol 400 Units 10 Mcg Tab) 400 [facility] [place]: 03/27/23 08:59 Last Admin: 03/05/23 08:34 Dose: 400 units (1) Chest pain Chest pain type: unspecified Qualified Code(s): R07.9 - Chest pain, unspecified
[2023-03-05] MEDS: ATORVASTATIN 40 MG TAB PO SCH (20:12)
[2023-03-05] MEDS: traZODone HCL 50 MG TAB PO SCH (20:49)
[2023-03-05] MEDS: MELATONIN 3 MG TAB PO PRN (20:51)
[2023-03-06] MEDS: hydroCHLOROthiazide 25 MG TAB PO SCH (07:33)
[2023-03-06] MEDS: METOPROLOL TARTRATE 25 MG TAB PO SCH ×2 (07:33→20:33)
[2023-03-06] MEDS: FAMOTIDINE 20 MG TAB PO SCH ×2 (07:34→20:32)
[2023-03-06] MEDS: CHOLECALCIFEROL 400 UNITS 10 MCG TAB PO SCH (07:34)
[2023-03-06] MEDS: ASPIRIN 81 MG ECTAB PO SCH (07:34)
[2023-03-06] MEDS: amLODIPine BESYLATE 5 MG TAB PO SCH (07:35)
[2023-03-06] MEDS: ASCORBIC ACID 500 MG TAB PO SCH (07:35)
[2023-03-06] MEDS: ISOSORBIDE MONO EXTENDED REL 60 MG TABCR PO SCH (07:35)
[2023-03-06] MEDS: HEPARIN SOD 5,000 UNIT/0.5 ML VIAL SQ SCH ×2 (07:36→20:33)
[2023-03-06] MEDS: VALSARTAN 80 MG TAB PO SCH (07:36)
[2023-03-06] MEDS: ACETAMINOPHEN 500 MG TAB PO SCH ×3 (07:39→20:35)
[2023-03-06] MEDS: DOCUSATE SODIUM 100 MG CAP PO SCH (07:39)
[2023-03-06] MEDS: PANTOprazole 40 MG TAB PO SCH (07:40)
[2023-03-06] MEDS: INSULIN ASPART PER UNIT CHARGE SC SCH ×4 (08:13→20:17)
[2023-03-06] MEDS: LANTUS PER UNIT CHARGE SQ SCH ×2 (08:14→20:35)
--- NOTE | 2023-03-06 16:02 | Hospitalist Progress Note ---
Date of Service March 06, 2023 Assessment & Plan (1) Chest pain: Plan: NSTEMI Initial troponin was 11.3 which went up to 86.8 at the third set and then was trending down Likely has NSTEMI-heparin was initiated which has been discontinued today Appreciate cardiology input and recommendation Echo ordered in a.m.-there is mild concentric LVH, LV wall motion is normal, LV systolic function is normal with EF 60 to 65%, RV is mildly dilated, RV systolic function is normal, significant tricuspid regurgitation is absent Doppler findings do not suggest pulmonary hypertension and there is grade 1 diastolic dysfunction with aortic valve sclerosis mild without significant stenosis . Clinically much better and denies any cardiac symptoms No cardiac symptoms except pauses as below Remains free from any cardiac symptoms Awaiting placement No cardiac symptoms Prolonged sinus pauses up to 20 seconds Patient remains weak and lethargic but no other symptoms reported Discussed with the lead electrician and the patient was transferred to telemetry unit for possible pacemaker insertion Beta-flori is on hold No more pauses-awaiting for possible pacemaker placement Likely pacemaker placement on Friday if noted to have any more pauses otherwise discharged on Friday Pacemaker placement will be done tomorrow and likely discharge thereafter tomorrow Status post PPM placement on 03/02/2023 and he has been doing much better since then No more pauses and remains stable No arrhythmias and remains stable with controlled heart rate (2) Abnormal EKG: Plan: Reviewed EKG, concerns for left bundle branch block. Continue telemetry monitoring Continues to have intermittent pauses up to 20 seconds (3) Congestive heart failure: Plan: Continue home meds at this time Mild congestive heart failure likely secondary to diastolic heart failure and may have history of chronic diastolic heart failure No signs or symptoms of fluid overload No shortness of breath No signs and or symptoms of CHF Volume status is normal No signs and or symptoms of fluid overload (4) MEGAN (obstructive sleep apnea): Plan: Stable Has been put on CPAP at nighttime Continue CPAP as an outpatient (5) Diabetes type 2, controlled: Plan: Held home meds at this time Put him on sliding scale and Lantus. Blood sugar remains stable (6) Essential hypertension: Plan: Continue valsartan and amlodipine Blood pressure remains on the upper side at 153/103 We will continue current medications and increase hydrochlorothiazide to 25 mg a day Blood pressure remains stable No change in his blood pressure medications Plan DVT prophylaxis Subcu heparin CODE STATUS Patient is a DNR Ready to be discharged whenever there is a bed available Admission and Anticipated Discharge Date Admission Date: February 25, 2023 Subjective 02/26/2023 The patient was seen and examined in medical telemetry unit He remains stable and complains to have weakness only Denies any chest pain, palpitation or shortness of breath 02/27/2023 The patient was seen and examined in medical telemetry unit He was noted to have long pauses up to 20 seconds repeatedly since last night Remained very weak and lethargic but did not have any other symptoms or situation noted by the nurse This morning he was weak and lethargic but conversing normally and denies any symptoms He was transferred to telemetry unit for continuation of care 02/28/2023 The patient was seen and examined in ICU He has been stable and heart rate remains stable to without any more evidence of pauses Denies any significant symptoms Awaiting cardiology evaluation for possible pacemaker placement 03/01/2023 The patient was seen and examined in telemetry unit He has been stable and denies any significant symptoms His heart rate is a stable and did not have any pauses for the last 48 hours or so 03/02/2023 The patient was seen and examined in telemetry unit He has been stable and denies any significant symptoms No more pauses and heart rate remains around 60s 03/03/2023 The patient was seen and examined in telemetry unit He is a status post permanent pacemaker placement Minimal pain at the insertion site but no other symptoms 03/04/2023 The patient was seen and examined in telemetry unit Status post PPM placement yesterday and doing fine He has been stable and will be discharged this afternoon 03/05/2023 The patient was seen and examined in telemetry unit He has been stable and awaiting placement Denies any symptoms following PPM placement 03/06/2023 The patient was seen and examined in telemetry unit He has been stable and awaiting placement Review of Systems Review of Systems: All systems reviewed and are unremarkable except as noted below Physical Exam Physical Exam: Lying in bed comfortably Constitutional: well developed, well nourished and + obese; not ill appearing Eyes: PERRL, conjunctivae normal, anicteric sclerae ENMT: external ear and nose normal, oropharynx normal Neck: trachea midline, no thyromegaly Respiratory: no respiratory distress Auscultation: lungs clear to auscultation bilaterally Cardiovascular: Rate/Rhythm: regular rate and regular rhythm; not tachycardic Heart Sounds: normal S1 and normal S2; no murmur Extremities: + edema (Trace edema bilaterally) Gastrointestinal (Abdomen): Inspection/Auscultation: normal bowel sounds; abdomen not distended Percussion/Palpation: abdomen soft; abdomen nontender Neurologic: normal touch/pain/proprioception and moves all extremities; no focal motor deficits Psychiatric: A+Ox3, euthymic affect Lymphatic: no cervical or axillary lymphadenopathy Results & Data Results & Data Vital Signs (Past 12 Hours) Vital Signs Temp Pulse Pulse Resp BP Pulse Ox O2 Del Method 03/06/23 15:35 60 03/06/23 12:00 36.5 C 69 20 149/69 H 93 Room Air 03/06/23 09:48 Room Air 03/06/23 08:55 63 03/06/23 07:30 36.8 C 79 18 155/72 H 98 Room Air Medications Administered Current Inpatient Medications Acetaminophen (Acetaminophen 500 Mg Tab) 1,000 mg PO TID ANITA Stop: 03/26/23 13:59 Last Admin: 03/06/23 15:02 Dose: 1,000 mg Al Hydrox/Mg Hydrox/Simethicone (Aluminum/Magnesium Susp 30 Ml Udc) 15 ml PO Q4H PRN PRN Reason: Dyspepsia Stop: 03/26/23 13:30 Amlodipine Besylate (Amlodipine Besylate 5 Mg Tab) 5 mg PO QAM ANITA Stop: 03/30/23 11:59 Last Admin: 03/06/23 07:35 Dose: 5 mg Ascorbic Acid (Ascorbic Acid 500 Mg Tab) 500 mg PO DAILY ANITA Stop: 03/27/23 08:59 Last Admin: 03/06/23 07:35 Dose: 500 mg Aspirin (Aspirin 81 Mg Ectab) 81 mg PO QAM ANITA Stop: 03/27/23 08:59 Last Admin: 03/06/23 07:34 Dose: 81 mg Atorvastatin Calcium (Atorvastatin 40 Mg Tab) 40 mg PO PM [facility] Stop: 03/27/23 20:59 Last Admin: 03/05/23 20:12 Dose: 40 mg Dextrose (Dextrose 50% 50 Ml Syringe) 25 - 50 ml IV UD PRN; Protocol PRN Reason: Hypoglycemia Protocol Stop: 03/26/23 13:30 Docusate Sodium (Docusate Sodium 100 Mg Cap) 100 mg PO DAILY ANITA Stop: 03/27/23 08:59 Last Admin: 03/06/23 07:39 Dose: 100 mg Famotidine (Famotidine 20 Mg Tab) 20 mg PO BID ANITA Stop: 03/26/23 20:59 Last Admin: 03/06/23 07:34 Dose: 20 mg Glucagon (Glucagon For Inj 1 Mg Vial) 1 mg SQ UD PRN; Protocol PRN Reason: Hypoglycemia Protocol Stop: 03/26/23 13:30 Glucose (Glucose 10 Tab/Tube) 4 - 8 tab PO UD PRN; Protocol PRN Reason: Hypoglycemia Treatment Stop: 03/26/23 13:30 Glucose (Glucose 40% Gel 15 Gm Tube) 15 - 30 gm PO UD PRN; Protocol PRN Reason: Hypoglycemia Protocol Stop: 03/26/23 13:30 Heparin Sodium (Porcine) (Heparin Sod 5,000 Unit/0.5 Ml Vial) 5,000 units SQ Q12 ANITA Stop: 03/28/23 20:59 Last Admin: 03/06/23 07:36 Dose: 5,000 units Hydrochlorothiazide (Hydrochlorothiazide 25 Mg Tab) 12.5 mg PO QAM ANITA Stop: 03/27/23 08:59 Last Admin: 03/06/23 07:33 Dose: 12.5 mg Insulin Aspart (Insulin Aspart Per Unit Charge) 0 units SC ACHS ANITA Stop: 03/29/23 17:59 Last Admin: 03/06/23 12:11 Dose: 4 units Insulin Glargine (Lantus Per Unit Charge) 0 - 10 units SQ BID ANITA Stop: 03/26/23 20:59 Last Admin: 03/06/23 08:14 Dose: 5 units Isosorbide Mononitrate (Isosorbide Grady Extended Rel 60 Mg Tabcr) 60 mg PO QAM ANITA Stop: 03/29/23 08:59 Last Admin: 03/06/23 07:35 Dose: 60 mg Melatonin (Melatonin 3 Mg Tab) 3 mg PO HS PRN PRN Reason: Sleep Stop: 04/02/23 00:41 Last Admin: 03/05/23 20:51 Dose: 3 mg Metoprolol Tartrate (Metoprolol Tartrate 25 Mg Tab) 25 mg PO BID ANITA Stop: 04/02/23 12:14 Last Admin: 03/06/23 07:33 Dose: 25 mg Miscellaneous (Carbohydrates For Hypoglycemia ) 15 - 30 gm PO UD PRN PRN Reason: Hypoglycemia Protocol Stop: 03/26/23 13:30 Ondansetron HCl (Ondansetron Inj 2 Mg/Ml 2 Ml Vial) 4 mg IV Q6H PRN PRN Reason: Nausea Stop: 03/26/23 13:30 Pantoprazole Sodium (Pantoprazole 40 Mg Tab) 40 mg PO QAM [facility] Stop: 03/27/23 08:59 Last Admin: 03/06/23 07:40 Dose: Not Given Polyethylene Glycol (Polyethylene (Miralax) 17 Gm Pack) 17 gm PO DAILY PRN PRN Reason: Constipation Stop: 03/26/23 13:30 Trazodone HCl (Trazodone Hcl 50 Mg Tab) 50 mg PO HS [facility] Stop: 03/26/23 20:59 Last Admin: 03/05/23 20:49 Dose: 50 mg Valsartan (Valsartan 80 Mg Tab) 160 mg PO QAM [facility] Stop: 03/27/23 08:59 Last Admin: 03/06/23 07:36 Dose: 160 mg Vitamin D (Cholecalciferol 400 Units 10 Mcg Tab) 400 units PO QAM [facility] Stop: 03/27/23 08:59 Last Admin: 03/06/23 07:34 Dose: 400 units (1) Chest pain Chest pain type: unspecified Qualified Code(s): R07.9 - Chest pain, unspecified
[2023-03-06] MEDS: MELATONIN 3 MG TAB PO PRN (20:32)
[2023-03-06] MEDS: ATORVASTATIN 40 MG TAB PO SCH (20:33)
[2023-03-06] MEDS: traZODone HCL 50 MG TAB PO SCH (20:45)
[2023-03-07 07:17] LABS: BUN Creatinine Ratio 38.9 (10-20); Calcium 9.8 mg/dl (8.6-10.3); Creatinine Clr Calc Pharmacy 61.3 ml/min; Est GFR (African American) 83.7 ml/min; Est GFR (Non-African American) 72.2 ml/min; Potassium 4.2 mmol/L (3.5-5.1)
[2023-03-07] MEDS: INSULIN ASPART PER UNIT CHARGE SC SCH ×4 (07:49→20:31)
[2023-03-07] MEDS: ASCORBIC ACID 500 MG TAB PO SCH (08:52)
[2023-03-07] MEDS: amLODIPine BESYLATE 5 MG TAB PO SCH (08:52)
[2023-03-07] MEDS: ASPIRIN 81 MG ECTAB PO SCH (08:53)
[2023-03-07] MEDS: FAMOTIDINE 20 MG TAB PO SCH ×2 (08:53→20:45)
[2023-03-07] MEDS: CHOLECALCIFEROL 400 UNITS 10 MCG TAB PO SCH (08:53)
[2023-03-07] MEDS: HEPARIN SOD 5,000 UNIT/0.5 ML VIAL SQ SCH ×2 (08:53→20:42)
[2023-03-07] MEDS: hydroCHLOROthiazide 25 MG TAB PO SCH (08:54)
[2023-03-07] MEDS: ISOSORBIDE MONO EXTENDED REL 60 MG TABCR PO SCH (08:54)
[2023-03-07] MEDS: LANTUS PER UNIT CHARGE SQ SCH ×2 (08:54→20:41)
[2023-03-07] MEDS: VALSARTAN 80 MG TAB PO SCH (08:55)
[2023-03-07] MEDS: METOPROLOL TARTRATE 25 MG TAB PO SCH ×2 (08:55→20:45)
[2023-03-07] MEDS: PANTOprazole 40 MG TAB PO SCH (08:55)
[2023-03-07] MEDS: ACETAMINOPHEN 500 MG TAB PO SCH ×3 (08:57→20:46)
[2023-03-07] MEDS: DOCUSATE SODIUM 100 MG CAP PO SCH (08:57)
--- NOTE | 2023-03-07 15:24 | Hospitalist Progress Note ---
Date of Service March 07, 2023 Assessment & Plan (1) Chest pain: Plan: NSTEMI Initial troponin was 11.3 which went up to 86.8 at the third set and then was trending down Likely had NSTEMI-heparin was initiated which has been discontinued Appreciate cardiology input and recommendations Echo -there is mild concentric LVH, LV wall motion is normal, LV systolic function is normal with EF 60 to 65%, RV is mildly dilated, RV systolic function is normal, significant tricuspid regurgitation is absent Doppler findings do not suggest pulmonary hypertension and there is grade 1 diastolic dysfunction with aortic valve sclerosis mild without significant stenosis . Sinus Pauses Prolonged sinus pauses up to 20 seconds Patient was weak and lethargic but no other symptoms reported Discussed with the director data analytics and the patient was transferred to telemetry unit for possible pacemaker insertion Status post PPM placement on 03/02/2023 No more pauses and remains stable (2) Abnormal EKG: Plan: Reviewed EKG, concerns for left bundle branch block. Prolonged sinus pauses up to 20 seconds Patient was weak and lethargic but no other symptoms reported Discussed with the director data analytics and the patient was transferred to telemetry unit for possible pacemaker insertion Status post PPM placement on 03/02/2023 No more pauses and remains stable (3) Congestive heart failure: Plan: Continue home meds Stable (4) MEGAN (obstructive sleep apnea): Plan: Stable Has been put on CPAP at nighttime Continue CPAP as an outpatient (5) Diabetes type 2, controlled: Plan: Held home meds on sliding scale and Lantus. Blood sugar remains stable (6) Essential hypertension: Plan: Continue valsartan and amlodipine Also on hydrochlorothiazide 12.5 mg a day Blood pressure remains stable Plan DVT prophylaxis Subcu heparin CODE STATUS Patient is a DNR Awaiting discharge to [facility] anticipated on 03/08 Admission and Anticipated Discharge Date Admission Date: February 25, 2023 Subjective Pt was seen sitting at bedside. Anxious to leave. Denies acute concerns. Review of Systems 2 Review of Systems: All systems reviewed & are unremarkable except as noted in Subjective Physical Exam Physical Exam: General: Alert, oriented. No acute distress Psych: Appropriate mood and affect HEENT: NC/AT CV: RRR, Normal s1, s2. Resp: Breath sounds clear bilaterally, no increased effort of breathing. Abdomen: Soft, nontender Results & Data Results & Data Vital Signs (Past 12 Hours) Vital Signs Temp Pulse Resp BP Pulse Ox O2 Del Method 03/07/23 12:09 37.0 C 60 18 99/52 L 94 Room Air 03/07/23 08:00 Room Air 03/07/23 07:02 36.7 C 60 18 158/85 H 95 Room Air (1) Chest pain Chest pain type: unspecified Qualified Code(s): R07.9 - Chest pain, unspecified
[2023-03-07] MEDS: ATORVASTATIN 40 MG TAB PO SCH (20:45)
[2023-03-07] MEDS: MELATONIN 3 MG TAB PO PRN (20:46)
[2023-03-07] MEDS: traZODone HCL 50 MG TAB PO SCH (20:46)
[2023-03-08] MEDS: INSULIN ASPART PER UNIT CHARGE SC SCH ×4 (08:07→20:18)
[2023-03-08] MEDS: LANTUS PER UNIT CHARGE SQ SCH ×2 (08:08→20:30)
[2023-03-08] MEDS: amLODIPine BESYLATE 5 MG TAB PO SCH (08:09)
[2023-03-08] MEDS: FAMOTIDINE 20 MG TAB PO SCH ×2 (08:09→20:33)
[2023-03-08] MEDS: ASCORBIC ACID 500 MG TAB PO SCH (08:09)
[2023-03-08] MEDS: ASPIRIN 81 MG ECTAB PO SCH (08:09)
[2023-03-08] MEDS: hydroCHLOROthiazide 25 MG TAB PO SCH (08:09)
[2023-03-08] MEDS: METOPROLOL TARTRATE 25 MG TAB PO SCH ×2 (08:09→20:33)
[2023-03-08] MEDS: PANTOprazole 40 MG TAB PO SCH (08:09)
[2023-03-08] MEDS: ISOSORBIDE MONO EXTENDED REL 60 MG TABCR PO SCH (08:10)
[2023-03-08] MEDS: HEPARIN SOD 5,000 UNIT/0.5 ML VIAL SQ SCH ×2 (08:10→20:31)
[2023-03-08] MEDS: CHOLECALCIFEROL 400 UNITS 10 MCG TAB PO SCH (08:10)
[2023-03-08] MEDS: VALSARTAN 80 MG TAB PO SCH (08:10)
[2023-03-08] MEDS: ACETAMINOPHEN 500 MG TAB PO SCH ×3 (08:13→20:31)
[2023-03-08] MEDS: DOCUSATE SODIUM 100 MG CAP PO SCH (08:13)
--- NOTE | 2023-03-08 16:49 | Hospitalist Progress Note ---
Date of Service March 08, 2023 Assessment & Plan (1) Chest pain: Plan: NSTEMI Initial troponin was 11.3 which went up to 86.8 at the third set and then was trending down Likely had NSTEMI-heparin was initiated which has been discontinued Appreciate cardiology input and recommendations Echo -there is mild concentric LVH, LV wall motion is normal, LV systolic function is normal with EF 60 to 65%, RV is mildly dilated, RV systolic function is normal, significant tricuspid regurgitation is absent Doppler findings do not suggest pulmonary hypertension and there is grade 1 diastolic dysfunction with aortic valve sclerosis mild without significant stenosis . Sinus Pauses Prolonged sinus pauses up to 20 seconds Patient was weak and lethargic but no other symptoms reported Discussed with the aws solution architect and the patient was transferred to telemetry unit for possible pacemaker insertion Status post PPM placement on 03/02/2023 No more pauses and remains stable Pt stable for discharge to [facility], awaiting placement. (2) Abnormal EKG: Plan: Reviewed EKG, concerns for left bundle branch block. Prolonged sinus pauses up to 20 seconds Patient was weak and lethargic but no other symptoms reported Discussed with the aws solution architect and the patient was transferred to telemetry unit for possible pacemaker insertion Status post PPM placement on 03/02/2023 No more pauses and remains stable (3) Congestive heart failure: Plan: Continue home meds Stable (4) MEGAN (obstructive sleep apnea): Plan: Stable Has been put on CPAP at nighttime Continue CPAP as an outpatient (5) Diabetes type 2, controlled: Plan: Held home meds on sliding scale and Lantus. Blood sugar remains stable (6) Essential hypertension: Plan: Continue valsartan and amlodipine Also on hydrochlorothiazide 12.5 mg a day Blood pressure remains stable Plan DVT prophylaxis Subcu heparin CODE STATUS Patient is a DNR Awaiting discharge to [facility]. Admission and Anticipated Discharge Date Admission Date: February 25, 2023 Subjective Pt was seen sitting at bedside. Anxious to leave. Communicated update that [facility] wanted transfer to be delayed due to short staffing. Pt received news well. Denies acute concerns. Review of Systems Review of Systems: All systems reviewed & are unremarkable except as noted in Subjective Physical Exam Physical Exam: General: Alert, oriented. No acute distress Psych: Appropriate mood and affect HEENT: NC/AT CV: RRR, Normal s1, s2. Resp: Breath sounds clear bilaterally, no increased effort of breathing. Abdomen: Soft, nontender Results & Data Results & Data Vital Signs (Past 12 Hours) Vital Signs Temp Pulse Resp BP Pulse Ox O2 Del Method 03/08/23 15:09 36.5 C 60 19 106/52 L 95 Room Air 03/08/23 12:12 36.8 C 59 L 18 112/57 L 95 Room Air 03/08/23 08:00 Room Air 03/08/23 06:56 36.9 C 60 18 136/64 96 Room Air (1) Chest pain Chest pain type: unspecified Qualified Code(s): R07.9 - Chest pain, unspecified
[2023-03-08] MEDS: ATORVASTATIN 40 MG TAB PO SCH (20:32)
[2023-03-08] MEDS: traZODone HCL 50 MG TAB PO SCH (20:33)
[2023-03-08] MEDS: MELATONIN 3 MG TAB PO PRN (20:33)
[2023-03-09] MEDS: INSULIN ASPART PER UNIT CHARGE SC SCH ×2 (08:08→11:04)
[2023-03-09] MEDS: LANTUS PER UNIT CHARGE SQ SCH (08:08)
[2023-03-09] MEDS: HEPARIN SOD 5,000 UNIT/0.5 ML VIAL SQ SCH (08:25)
[2023-03-09] MEDS: ASPIRIN 81 MG ECTAB PO SCH (08:26)
[2023-03-09] MEDS: FAMOTIDINE 20 MG TAB PO SCH (08:26)
[2023-03-09] MEDS: hydroCHLOROthiazide 25 MG TAB PO SCH (08:26)
[2023-03-09] MEDS: METOPROLOL TARTRATE 25 MG TAB PO SCH (08:26)
[2023-03-09] MEDS: ASCORBIC ACID 500 MG TAB PO SCH (08:27)
[2023-03-09] MEDS: PANTOprazole 40 MG TAB PO SCH (08:27)
[2023-03-09] MEDS: VALSARTAN 80 MG TAB PO SCH (08:27)
[2023-03-09] MEDS: amLODIPine BESYLATE 5 MG TAB PO SCH (08:27)
[2023-03-09] MEDS: ACETAMINOPHEN 500 MG TAB PO SCH (08:27)
[2023-03-09] MEDS: DOCUSATE SODIUM 100 MG CAP PO SCH (08:27)
[2023-03-09] MEDS: ISOSORBIDE MONO EXTENDED REL 60 MG TABCR PO SCH (08:27)
[2023-03-09] MEDS: CHOLECALCIFEROL 400 UNITS 10 MCG TAB PO SCH (08:27)
--- NOTE | 2023-03-09 09:59 | Discharge Summary ---
Discharge Summary Date of Service March 09, 2023 Notes For Next Care Provider Ensure follow up with cardiology Medication Changes From Visit Amlodipine was decreased from 10mg to 5mg daily Atorvastatin was increased from 20mg to 40mg Started on metoprolol tartrate 25mg BID Started on Isosorbide mononitrate 60mg daily Started on melatonin 3mg Admission HPI Per Admitting Provider 87-year-old male with multiple medical problems staying in an assisted living facility came in with episode of chest pain retrosternal. He describes it as severe chest pain with no radiation lasted for about 20 to 30 minutes and subsided on its own. In view of concerns he was moved to [facility] and evaluated in the ER. Patient received aspirin and nitroglycerin prior to arrival with significant improvement of his symptoms. Patient denied any shortness of breath. No fever or cough or nausea noted. At time of evaluation his niece was at bedside. He denies any chest pain at this point of time. His initial labs and EKG were negative for acute CA. Admission Exam Per Admitting Provider HEENT:No JVD , Normocephalic , atraumatic CV: S1/S2+ , no murmurs Resp: Air entry present bilaterally.no crackles, no wheeze . GI: Abdomen soft non tender . Musculoskeletal: examined for joint tenderness. Skin: no rashes Psych: Normal affect Neuro: Patient is awake alert not in distress , No focal neuro deficits noted Ext: patient has compression stockings, noted to have edema Principal Dx & Hospital Course #1 = Principal Diagnosis (1) Chest pain: (2) Abnormal EKG: (3) Congestive heart failure: (4) MEGAN (obstructive sleep apnea): (5) Diabetes type 2, controlled: (6) Essential hypertension: Plan Pt is an 87yoM with PMHx significant for DMII, HTN, CHF, MEGAN, GERD, Insomnia and Constipation admitted with NSTEMI and sinus pauses requiring pacemaker placement after presenting with chest pain. Discharged to [facility]. NSTEMI Initial troponin was 11.3, peaked at 86.8 before trending down Dx of NSTEMI-heparin was initiated which has been discontinued and was medically managed Echo noted mild concentric LVH, LV wall motion was normal, LV systolic function with EF 60 to 65%, RV is mildly dilated, RV systolic function is normal, significant tricuspid regurgitation is absent Doppler findings do not suggest pu lmonary hypertension and there is grade 1 diastolic dysfunction with aortic valve sclerosis mild without significant stenosis . Cardiology recommended continuing with valsartan, hydrochlorothiazide, i sosorbide monohydrate, aspirin and high intensity statin therapy. Sinus Pauses Prolonged sinus pauses up to 20 seconds were noted on telemetry EKG with concerns for left bundle branch block Patient was weak and lethargic but no other symptoms reported Status post pacemaker placement on 03/02/2023 No subsequent pauses and remains stable Metoprolol has since been re-started at 25mg BID Cardiology followup after discharge, see instructions below for device and wound check at [facility] Congestive heart failure Stable Continue meds as noted above including jardiance MEGAN (obstructive sleep apnea) Stable Has been put on CPAP at nighttime Continue CPAP as an outpatient Diabetes type 2, controlled Hgba1c was 6.4 on 02/25/23 Held home meds On sliding scale and Lantus while hospitalized Resume home regimen of jardiance and metformin on discharge Essential hypertension Continue valsartan and amlodipine Continue hydrochlorothiazide Blood pressure remains stable HLD Atorvastatin increased to 40mg GERD Continue home medications Insomnia Continue home trazodone and prescribed melatonin. Discharge Exam General: Alert, oriented. No acute distress Psych: Appropriate mood and affect HEENT: NC/AT CV: RRR, Normal s1, s2. Resp: Breath sounds clear bilaterally, no increased effort of breathing. Abdomen: Soft, nontender Updated Medication List Medication Instructions Recorded Confirmed Type acetaminophen 500 mg tablet 1,000 mg PO TID LOW BACK PAIN 09/12/22 02/24/23 History (Tylenol Extra Strength) amlodipine 10 mg tablet (Norvasc) 10 mg PO QAM 09/12/22 02/24/23 History atorvastatin 20 mg tablet 20 mg PO PM 09/12/22 02/24/23 History cholecalciferol (vitamin D3) 10 10 mcg PO QAM 09/12/22 02/24/23 History mcg (400 unit) capsule empagliflozin 10 mg tablet 10 mg PO BID 09/12/22 02/24/23 History (Jardiance) famotidine 20 mg tablet (Pepcid) 20 mg PO BID 09/12/22 02/24/23 History metformin 1,000 mg tablet 1,000 mg PO BID 09/12/22 02/24/23 History nystatin-triamcinolone 100,000 1 applic topical BID 09/12/22 02/24/23 History unit/gram-0.1 % topical ointment pantoprazole 40 mg tablet,delayed 40 mg PO QAM 09/12/22 02/24/23 History release (Protonix) trazodone 50 mg tablet 50 mg PO HS 09/12/22 02/24/23 History valsartan 160 1 tab PO QAM 09/26/22 02/24/23 History mg-hydrochlorothiazide 25 mg tablet docusate sodium 100 mg capsule 100 mg PO DAILY 10/03/22 02/24/23 History (Colace) ascorbic acid (vitamin C) 500 mg 500 mg PO DAILY 02/24/23 02/24/23 History tablet (Vitamin C) aspirin 25 mg-dipyridamole 200 mg 1 cap PO BID 02/24/23 02/24/23 History capsule,ext.release 12 hr multiphase amlodipine 5 mg tablet (Norvasc) 5 mg PO QAM #30 tabs 03/09/23 Rx atorvastatin 40 mg tablet 40 mg PO PM #30 tabs 03/09/23 Rx isosorbide mononitrate 60 mg 60 mg PO QAM #30 tabs 03/09/23 Rx tablet,extended release 24 hr melatonin 3 mg tablet 3 mg PO HS PRN sleep #30 tabs 03/09/23 Rx metoprolol tartrate 25 mg tablet 25 mg PO BID #60 tabs 03/09/23 Rx Hospital Stay Data Consultations 02/24/23 12:13 ED Decision to Admit Stat 02/24/23 16:13 Consult Cardiology Routine Procedures Performed Operation Date: 03/03/23 07:30 Actual Procedures p Pacer with A/V Leads (Dual) - Suzanne Boyle DO s Venogram, Unilateral - Suzanne Boyle DO Diagnostic Imagining Performed 02/27/23 16:47 CT head/brain wo con Routine 03/03/23 07:00 EP Lab Images for PACS ONCE Discharge Instructions Given to Patient (Per Discharging Provider) Pt is an 87yoM with PMHx significant for DMII, HTN, CHF, MEGAN, GERD, Insomnia and Constipation admitted with NSTEMI and sinus pauses requiring pacemaker placement after presenting with chest pain. Discharged to [facility]. NSTEMI Initial troponin was 11.3, peaked at 86.8 before trending down NSTEMI-heparin was initiated which has been discontinued and was medically managed Echo noted mild concentric LVH, LV wall motion was normal, LV systolic function with EF 60 to 65%, RV is mildly dilated, RV systolic function is normal, significant tricuspid regurgitation is absent Doppler findings do not suggest pulmonary hypertension and there is grade 1 diastolic dysfunction with aortic valve sclerosis mild without significant stenosis . Cardiology recommended continuing with valsartan, hydrochlorothiazide, isosorbide monohydrate, aspirin and high intensity statin therapy. Cardiology follow up Sinus Pauses Prolonged sinus pauses up to 20 seconds were noted on telemetry EKG with concerns for left bundle branch block Patient was weak and lethargic but no other symptoms reported Status post pacemaker placement on 03/02/2023 No subsequent pauses and remains stable Metoprolol has since been re-started at 25mg BID Cardiology followup after discharge, see instructions below for device and wound check at [facility] Cardiology Congestive heart failure Continue meds as noted above including jardiance Stable MEGAN (obstructive sleep apnea) Stable Has been put on CPAP at nighttime Continue CPAP as an outpatient Diabetes type 2, controlled Held home meds on sliding scale and Lantus while hospitalized Resume home regimen of jardiance and metformin on discharge Essential hypertension Continue valsartan and amlodipine Continue hydrochlorothiazide Blood pressure remains stable GERD Continue home medications HLD Atorvastatin increased to 40mg Insomnia Continue home trazodone and prescribed melatonin. Total Time Total Time Spent Total Time Spent (In Minutes): >30 minutes
== END 2023-03-09 11:35 | DRG 243 ==
LOC: EDINP 10:19 → ED 10:19 → SUATTDRO 12:46 → 2N 13:29 → SUATTDRO 02-25 17:45 → 2N 02-26 21:48 → 1E 02-27 11:40 → 2E 02-28 18:51